=== PATIENT | female | born 1980 | race American Indian/Alaskan Native ===

== ENCOUNTER 2017-10-16 23:19 | Emergency (ER) | payer MEDICAID, SELFPAY ==
[2017-10-16 23:32] VITALS: BP 119/81; PULSE 86; RESP 16; TEMP 36.6; O2SAT 100
[2017-10-16 23:33] VITALS: BP 119/81; PULSE 83; RESP 15; TEMP 36.6; O2SAT 97; BMI 27.3
--- NOTE | 2017-10-16 23:52 | ED.NAVMDI ---
HPI - Nausea/Vomiting/Diarrhea General Chief complaint: Nausea/Vomiting/Diarrhea Stated complaint: THROWING UP AND WEAK Time Seen by Provider: 10/16/17 23:33 Source: patient and RN notes reviewed Mode of arrival: ambulatory Limitations: no limitations History of Present Illness HPI Narrative: Patient is a 37-year-old female presents with nausea and abdominal pain it has been ongoing for about 2 weeks. She has not had fever or bowel problems. She was seen evaluated at an urgent care. However today she feels like it is worse. She has not vomited but does still feel nauseated. She had a cholecystectomy about 6 months ago. She has not had issues until a couple weeks ago. MD complaint: nausea Onset (ago): week(s) Description of Diarrhea: none Location of pain: diffuse Related Data Home Medications Medication Instructions Recorded Confirmed codeine-guaifenesin 5 ml PO Q4HP PRN #0 02/05/17 diphenhydramine HCl [Benadryl 25 mg PO Q6HP PRN #0 07/23/17 Allergy] epinephrine #0 07/23/17 Previous Rx's Medication Instructions Recorded levothyroxine 0.112 mg PO QAM #30 tab 09/05/16 guaifenesin [Mucinex] 600 mg PO Q12HP PRN #14 ter 02/05/17 ondansetron [Zofran ODT] 4 mg SUBLINGUAL Q6HP PRN #10 odt 02/05/17 epinephrine [EpiPen 2-Ant] 0.3 mg SQ X1 PRN #1 pkg 07/23/17 ondansetron [Zofran ODT] 4 mg PO Q6H PRN #10 tab 10/17/17 Allergies Allergy/AdvReac Type Severity Reaction Status Date / Time shellfish derived Allergy Severe ALL Verified 10/16/17 23:32 SEAFOOD, POSS ANAPHYLXIS R/T EXPOSURE @ WORK iodine Allergy Mild CONTRAST - Verified 10/16/17 23:32 BODY GOES NUMB Review of Systems Review of Systems All systems reviewed & are unremarkable except as noted in HPI and below Constitutional Denies chills, Denies fever(s), Denies lethargy and Denies weakness Cardiovascular Denies chest pain, Denies irregular heart rhythm, Denies lightheadedness, Denies palpitations, Denies dyspnea, Denies dyspnea on exertion and Denies orthopnea Respiratory Denies cough, Denies dyspnea, Denies dyspnea on exertion and Denies wheezing Gastrointestinal Gastrointestinal: Reports system reviewed and no additional complaints, except as docu Genitourinary Denies hematuria, Denies flank pain, Denies urinary incontinence and Denies urinary urgency Integumentary/Breasts Denies pruritus, Denies erythema, Denies rash and Denies wounds Neurologic Denies weakness Endocrine Denies palpitations Allergic/Immunologic Denies wheezing [facility] Surgical History History of cholecystectomy (Acute) Status post delivery (02/02/13) Status post knee surgery Status post tubal ligation (06/17/16) Social History Smoking Status: Current every day smoker alcohol intake: never Exam Initial Vital Signs Initial Vital Signs: Vital Signs Temperature 97.9 F 10/16/17 23:32 Pulse Rate 86 10/16/17 23:32 Respiratory Rate 16 10/16/17 23:32 Blood Pressure 119/81 H 10/16/17 23:32 Pulse Oximetry 100 10/16/17 23:32 Const General: cooperative and acute distress (Mild pain) Nutritional Appearance: well nourished and thin Orientation: alert, awake, oriented x3 and not confused [facility] Head: normocephalic and atraumatic Ears: hearing grossly normal bilaterally Mouth: moist mucous membranes Teeth and gingiva: dentition normal Throat: tonsils normal and uvula midline Resp Effort & Inspection: normal respiratory effort, able to speak in complete sentences, no respiratory distress and no use of accessory muscles Auscultation: clear to auscultation bilaterally, no rales, no rhonchi and no wheezes Cardio Rate: regular rate Rhythm: regular rhythm Heart Sounds: no click, no gallops, no murmurs and no rubs Pulses: normal peripheral pulses GI Palpation: soft, No guarding, No pulsatile mass and tender (Epigastric and slight right upper quadrant no guarding or rebound) Skin General: no rashes or lesions noted, No jaundice and No petechiae Neuro General: alert, oriented x3, gait normal and no focal motor deficits Speech: speech normal Extrem General: full ROM, no clubbing, cyanosis or edema, no pedal edema and no calf tenderness Course Orders Ordered: ED Orders 10/16/17 23:45 Ictotest Urine Stat Urine Culture Stat Urine Microscopic Stat 10/16/17 23:59 XR abdomen min 2V Stat Complete Blood Count AUTO DIFF Stat Comprehensive Metabolic Panel Stat Lipase Stat 10/17/17 00:01 US abdomen limited Stat Sodium Chloride (Normal Saline 0.9%) 1,000 mls @ 1,000 mls/hr IV CONT KAMLA Last Infusion: 10/17/17 02:02 Dose: 1,000 mls/hr Admin: 10/17/17 00:18 Dose: 1,000 mls/hr Discontinued Medications Ondansetron HCl (Zofran) 4 mg IV NOW ONE Stop: 10/16/17 23:59 Last Admin: 10/17/17 00:18 Dose: 4 mg Pantoprazole Sodium (Protonix) 40 mg IV NOW ONE Stop: 10/16/17 23:59 Last Admin: 10/17/17 00:18 Dose: 40 mg Vital Signs - 8 hr 10/16/17 23:32 10/16/17 23:33 Temperature 97.9 F 97.9 F Pulse Rate 86 83 Respiratory Rate 16 15 Blood Pressure 119/81 H Blood Pressure [Right Arm] 119/81 H Pulse Oximetry 100 97 MDM - Nausea/Vomiting/Diarrhea Lab Data Result diagrams: 10/16/17 23:59 10/16/17 23:59 Lab Results 10/16/17 10/16/17 10/16/17 Range/Units 23:45 23:45 23:59 WBC 9.1 (4.5-11.0) X10^3/uL RBC 4.31 (4.0-5.2) X10^6/uL Hgb 13.4 (12.0-16.0) g/dL Hct 38.5 (36-46) % MCV 89.3 (80-100) fL MCH 31.2 (26-34) PG MCHC 34.9 (30-36) % RDW 13.2 (11.6-14.8) % Plt Count 307 (150-400) X10^3/uL Neut % (Auto) 60.5 (50-75) % Lymph % (Auto) 26.1 (25-40) % Sebastian % (Auto) 9.0 (3-14) % Eos % (Auto) 4.1 H (2-4) % Baso % (Auto) 0.3 (0-2) % Neut # (Auto) 5500 (5135-5396) /uL Sodium (137-145) mmol/L Potassium (3.4-5.1) mmol/L Chloride (98-107) mmol/L Carbon Dioxide (22-32) mmol/L BUN (7-17) mg/dL Creatinine (0.52-1.04) mg/dL Estimated GFR (>60) mL/min BUN/Creatinine Ratio (6-22) Glucose (70-100) mg/dL Calcium (8.4-10.2) mg/dL Total Bilirubin (0.2-1.3) mg/dL AST (14-36) IU/L ALT (9-52) IU/L Alkaline Phosphatase (38-126) U/L Total Protein (6.3-8.2) g/dL Albumin (3.5-5.0) g/dL Globulin (1.7-4.1) g/dL Albumin/Globulin Ratio (1.0-2.8) Lipase (23-300) U/L Urine Ictotest Negative (Negative) Urine RBC None seen (0-5/HPF) Urine WBC 1-5/hpf (0-5/HPF) Ur Squamous Epith Cells 1-5 /hpf Calcium Oxalate Crystal Moderate H (None) Urine Bacteria Many (>30) H (None) Ur Culture Indicated? Specimen cultured Micro UA Comment Not Reportable 10/16/17 Range/Units 23:59 WBC (4.5-11.0) X10^3/uL RBC (4.0-5.2) X10^6/uL Hgb (12.0-16.0) g/dL Hct (36-46) % MCV (80-100) fL MCH (26-34) PG MCHC (30-36) % RDW (11.6-14.8) % Plt Count (150-400) X10^3/uL Neut % (Auto) (50-75) % Lymph % (Auto) (25-40) % Sebastian % (Auto) (3-14) % Eos % (Auto) (2-4) % Baso % (Auto) (0-2) % Neut # (Auto) (0030-4940) /uL Sodium 141 (137-145) mmol/L Potassium 3.7 (3.4-5.1) mmol/L Chloride 103.0 (98-107) mmol/L Carbon Dioxide 26.0 (22-32) mmol/L BUN 9.0 (7-17) mg/dL Creatinine 0.60 (0.52-1.04) mg/dL Estimated GFR > 60.0 (>60) mL/min BUN/Creatinine Ratio 15.0 (6-22) Glucose 96 (70-100) mg/dL Calcium 8.4 (8.4-10.2) mg/dL Total Bilirubin 0.5 (0.2-1.3) mg/dL AST 20 (14-36) IU/L ALT 25 (9-52) IU/L Alkaline Phosphatase 80 (38-126) U/L Total Protein 7.2 (6.3-8.2) g/dL Albumin 4.0 (3.5-5.0) g/dL Globulin 3.2 (1.7-4.1) g/dL Albumin/Globulin Ratio 1.3 (1.0-2.8) Lipase 100 (23-300) U/L Urine Ictotest (Negative) Urine RBC (0-5/HPF) Urine WBC (0-5/HPF) Ur Squamous Epith Cells Calcium Oxalate Crystal (None) Urine Bacteria (None) Ur Culture Indicated? Micro UA Comment Imaging Data Abdominal x-ray: Attestation: I personally reviewed and interpreted this imaging study as follows: My impression: No air-fluid levels or sign of obstruction no free air. 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 There are clinical laboratory signs of biliary obstruction an MRI scan CP should be performed to further evaluate. [facility] Narrative Medical decision making narrative: Patient blood work is within normal limits. She is sleeping after Zofran. His. No further episodes of nausea or vomiting while in the ED. She denies any painful or frequent urination. At this time wait for urine culture and sensitivity to return. Discharge Plan Departure Patient Disposition: Home, Self-Care Clinical Impression: Nausea alone Discharge Date/Time: 10/17/17 02:00 Instructions: DI for Nausea -- Adult Activity Restrictions/Additional Instructions: *You have been diagnosed with nausea *What to do: At this time ultrasound x-ray and blood work are within normal limits, follow up with her primary care doctor for further investigation if symptoms persist *Take medications as directed -Zofran every 4-6 hours if needed for nausea or vomiting *Follow up with your primary care provider in 2-3 days *Return to ER if you should have any new, worsening or concerning symptoms Prescriptions: New ondansetron [Zofran ODT] 4 mg tablet,disintegrating 4 mg PO Q6H PRN (Reason: nausea and vomiting) Qty: 10 RF: 0 No Action levothyroxine 112 MCG tablet 0.112 mg PO QAM Qty: 30 RF: 5 codeine-guaifenesin 100 MG/10 MG liquid 5 ml PO Q4HP PRNQty: 0 RF: 0 guaifenesin [Mucinex] 600 MG tablet extended release 12hr 600 mg PO Q12HP PRNQty: 14 RF: 0 ondansetron [Zofran ODT] 4 MG tablet,disintegrating 4 mg Sublingual Q6HP PRNQty: 10 RF: 0 diphenhydramine HCl [Benadryl Allergy] 25 MG tablet 25 mg PO Q6HP PRNQty: 0 RF: 0 epinephrine 0.3 MG/0.3 ML auto-injector Qty: 0 RF: 0 epinephrine [EpiPen 2-Ant] 0.3 MG/0.3 ML auto-injector 0.3 mg SQ X1 PRNQty: 1 RF: 0
[2017-10-16 23:57] LABS: RBC Urine None Seen (0-5/HPF)
--- NOTE | 2017-10-16 23:59 | DI.RAD.S_ITS ---
PROCEDURE: XR ABDOMEN MIN 2V INDICATIONS: persistant vomiting TECHNIQUE: 2 views of the abdomen were acquired. COMPARISON: None. FINDINGS: Surgical changes and devices: None. Bowel: No pneumoperitoneum. The bowel gas pattern is normal. Soft tissues: No masses; visualized solid organ contours appear normal in size. No suspicious abdominal calcifications. Bones: No suspicious bony abnormalities. IMPRESSION: A large amount of stool. Dictated by: Rain Quintero M.D. on 10/17/2017 at 8:43 Approved by: Rain Quintero M.D. on 10/17/2017 at 8:44
--- NOTE | 2017-10-17 00:01 | DI.US.S_ITS ---
PROCEDURE: US ABDOMEN LIMITED INDICATIONS: RUQ pain TECHNIQUE: Real-time focused scanning was performed of the abdomen, with image documentation. COMPARISON: [facility], US, ABDOMEN LIMITED, 06/09/2016, 17:38. FINDINGS: Normal hepatic size and echotexture, gallbladder absent. Common bile duct normal in caliber. Source of right upper quadrant pain. IMPRESSION: Prior cholecystectomy, source of current pain is not found. Dictated by: Alonso Hodge M.D. on 10/17/2017 at 8:15 Approved by: Alonso Hodge M.D. on 10/17/2017 at 8:16
[2017-10-17 00:02] LABS: Ictotest Urine Negative (Negative)
[2017-10-17 00:16] LABS: Bacteria Urine Many (>30); Calcium Oxalate Crystals Urine Moderate; Squamous Epithelial Cell Urine 1-5 /HPF; WBC Urine 1-5/HPF (0-5/HPF)
[2017-10-17 00:17] LABS: Culture Indicated Urine Specimen Cultured
[2017-10-17] MEDS: PANTOPRAZOLE 40 MG VIAL IV (00:18)
[2017-10-17] MEDS: SODIUM CHLORIDE 0.9% 1,000 ML 1000 ML IV (00:18)
[2017-10-17] MEDS: ONDANSETRON 4 MG/2 ML INJ IV (00:18)
[2017-10-17 00:33] LABS: Add Manual Diff / Slide Review NO; Basophils Percent Auto 0.3 % (0-2); Eosinophils Percent Auto 4.1 % (2-4); Hematocrit 38.5 % (36-46); Hemoglobin 13.4 g/dL (12.0-16.0); Lymphocytes Percent Auto 26.1 % (25-40); Mean Corpuscular HGB Conc 34.9 % (30-36); Mean Corpuscular Hemoglobin 31.2 PG (26-34); Mean Corpuscular Volume 89.3 fL (80-100); Neutrophils Absolute Auto 5500 /uL (3000-5900); Neutrophils Percent Auto 60.5 % (50-75); Platelet Count 307 X10^3/uL (150-400); Red Blood Cell Count 4.31 X10^6/uL (4.0-5.2); Red Cell Distribution Width 13.2 % (11.6-14.8); White Blood Cell Count 9.1 X10^3/uL (4.5-11.0)
[2017-10-17 00:54] LABS: Alanine Aminotransferase 25 IU/L (9-52); Albumin Globulin Ratio 1.3 (1.0-2.8); Alkaline Phosphatase 80 U/L (38-126); Aspartate Aminotransferase 20 IU/L (14-36); Bilirubin Total 0.5 mg/dL (0.2-1.3); Calcium 8.4 mg/dL (8.4-10.2); Estimated Glomerular Filt Rate > 60.0 mL/min (>60); Globulin 3.2 g/dL (1.7-4.1); Glucose 96 mg/dL (70-100); HEMOLYSIS < 15 (0-50); Lipase 100 U/L (23-300); Potassium 3.7 mmol/L (3.4-5.1); Sodium 141 mmol/L (137-145); Total Protein 7.2 g/dL (6.3-8.2)
[2017-10-17 02:07] VITALS: BP 121/79; PULSE 76; RESP 16; TEMP 36.6; O2SAT 98
== END 2017-10-17 02:00 | disposition home or self-care (01) ==
PROVIDERS: Emergency Provider Emergency Medicine; Family Provider Family Medicine; PCP Family Medicine
DX: R11.0 Nausea (principal)
CPT/HCPCS: 74019; 76705; 80053; 81003; 81015; 81025; 83690; 85025; 87086; 87186; 96361; 96374; 96375; 99283; 99284; C9113; J2405

== ENCOUNTER 2017-11-26 00:06 | Emergency (ER) | payer MEDICAID, OTHER, SELFPAY ==
[2017-11-26] MEDS: SODIUM CHLORIDE 0.9% 1,000 ML 1000 ML IV (03:19)
[2017-11-26] MEDS: KETOROLAC 60 MG/2 ML VIAL 15 MG IV (03:21)
[2017-11-26] MEDS: ONDANSETRON 8 MG in SODIUM CHLORIDE 0.9% 50 ML 216 ML IV (03:23)
[2017-11-26 03:30] VITALS: BP 124/64; PULSE 74; RESP 16; O2SAT 100
[2017-11-26 03:41] LABS: Add Manual Diff / Slide Review NO; Basophils Percent Auto 1.1 % (0-2); Eosinophils Percent Auto 3.5 % (2-4); Hematocrit 39.7 % (36-46); Hemoglobin 13.8 g/dL (12.0-16.0); Lymphocytes Percent Auto 23.5 % (25-40); Mean Corpuscular HGB Conc 34.7 % (30-36); Mean Corpuscular Hemoglobin 31.1 PG (26-34); Mean Corpuscular Volume 89.7 fL (80-100); Monocytes Percent Auto 8.7 % (3-14); Neutrophils Absolute Auto 5500 /uL (3000-5900); Neutrophils Percent Auto 63.2 % (50-75); Platelet Count 354 X10^3/uL (150-400); Red Blood Cell Count 4.43 X10^6/uL (4.0-5.2); Red Cell Distribution Width 12.9 % (11.6-14.8); White Blood Cell Count 8.8 X10^3/uL (4.5-11.0)
[2017-11-26 03:51] LABS: Pregnancy Test Serum,Qual Negative (Negative)
[2017-11-26 03:55] LABS: Alanine Aminotransferase 22 IU/L (9-52); Albumin 4.2 g/dL (3.5-5.0); Albumin Globulin Ratio 1.2 (1.0-2.8); Alkaline Phosphatase 85 U/L (38-126); Aspartate Aminotransferase 18 IU/L (14-36); BUN Creatinine Ratio 11.7 (6-22); Bilirubin Total 0.6 mg/dL (0.2-1.3); Blood Urea Nitrogen 7 mg/dL (7-17); Calcium 8.7 mg/dL (8.4-10.2); Carbon Dioxide 25 mmol/L (22-32); Chloride 107 mmol/L (98-107); Estimated Glomerular Filt Rate > 60.0 mL/min (>60); Globulin 3.4 g/dL (1.7-4.1); Glucose 95 mg/dL (70-100); HEMOLYSIS < 15 (0-50); Lipase 68 U/L (23-300); Potassium 3.5 mmol/L (3.4-5.1); Sodium 144 mmol/L (137-145); Total Protein 7.6 g/dL (6.3-8.2)
[2017-11-26 04:05] LABS: Procalcitonin < 0.05 ng/mL (<0.5)
[2017-11-26 04:26] LABS: Lactate (Lactic Acid) 0.5 mmol/L (0.7-2.1)
[2017-11-26] MEDS: HYDROMORPHONE 0.5 MG INJ IV (04:40)
[2017-11-26 06:14] LABS: Appearance Urine UA SL CLOUDY; Bilirubin Urine UA NEGATIVE (NEGATIVE); Color Urine UA YELLOW; Glucose Urine UA NEGATIVE (Normal); Ketones Urine UA TRACE (NEGATIVE); Leukocyte Esterase Urine UA NEGATIVE (NEGATIVE); Nitrite Urine UA POSITIVE (Negative); Occult Blood Urine UA 3+ (Negative); Protein Urine UA 1+ (Negative); Specific Gravity Urine UA >=1.030 (1.000-1.035)
[2017-11-26 06:24] LABS: Bacteria Urine Many (>30); Culture Indicated Urine Specimen Cultured; RBC Urine 30-100/HPF (0-5/HPF); Squamous Epithelial Cell Urine 1-5 /HPF; WBC Urine 1-5/HPF (0-5/HPF)
[2017-12-04 09:18] LABS: C.trachomatis RNA NOT DETECTED
[2017-12-04 09:19] LABS: N.gonorrhoeae RNA NOT DETECTED
--- NOTE | 2017-12-12 10:10 | ED.FEMALEGU ---
HPI - Female Genitourinary General Chief complaint: Vaginal Bleeding Stated complaint: Cramping, vaginal bleeding History of Present Illness HPI Narrative: HPI 37-year-old female presents complaining of lower abdominal cramping vaginal bleeding last 3 days. Patient believes that she is not having her menses, unable to further characterize the frequency or duration of her menses. Patient unable to characterize number of pads required. Patient denies lightheadedness, chest pain, shortness breath, notes diffuse abdominal discomfort, denies fevers, chills, dysuria, urinary efficiency. Continues to pass flatus and stool baseline. M/S/F/SocHx notable for: please see HPI; remainder reviewed with patient and in chart. ROS: Negative constitutional, eye, cardiovascular, pulmonary, GI, , MSK, skin, neurologic, psychiatric, endocrine unless noted in the HPI. Exam Gen: Pleasant, non-toxic appearing, resting comfortably. HEENT: NC, AT, PEERL, EOMI. Resp: Clear to auscultation bilaterally, normal work of breathing, no accessory muscle usage. Card: Regular rate and rhythm with no murmurs, rubs, or gallops, extremities warm and well perfused. GI: mild diffuse tenderness to palpation, no rebound, no guarding. : Chaperoned pelvic exam with visually normal female external genitalia. Vaginal canal without lesions or excoriations. Scant dark red blood from a visually closed cervical os. No masses or tenderness on bimanual exam of the fundus or left or right adnexa.No CMT. MSK: No visible deformities, strength and tone without visually appreciable deficit. Skin: Normal color with no visible lesions. Neuro: AO x 3, no facial asymmetry, vision and hearing WNL. Psych: Mood and affect appropriate. Labs / Imaging: WBC 8.8, HB 13.0, sodium 144, potassium 3.5, lipase 68, total bilirubin 0.6, AST 18, ALT 22, ALP 85, lactic 0.5, Procalcitonin less than 0.05, negative . GC, wet [place] pending UA - nitrite positive, leukocyte esterase negative, 30-100 WBCs, many bacteria. MDM Previous chart, nursing note, labs, imaging, and vitals reviewed. A: 37-year-old female presents complaining of lower abdominal cramping vaginal bleeding last 3 days. DDx: dysfunctional uterine bleeding, menses, PID, UTI, pyelonephritis, ectopic Evaluation: patient with uterine bleeding of uncertain etiology, given the patient's difficulty in recounting her menstrual history there is a strong possibility that this is her regular menses given the duration in the minimal amount of bleeding. Patient is well compensated without anemia, UA is consistent with UTI, patient was prescribed ciprofloxacin, first dose given in the ED. Patient discharged with instructions to use NSAIDs for lower abdominal discomfort, and to follow up with her PCP and/or [employer] [facility] in 2 days for repeat evaluation. Impression: UTI, vaginal bleeding (please reference below for remainder of encounter information) Related Data Home Medications Medication Instructions Recorded Confirmed codeine-guaifenesin 5 ml PO Q4HP PRN #0 02/05/17 diphenhydramine HCl [Benadryl 25 mg PO Q6HP PRN #0 07/23/17 Allergy] epinephrine #0 07/23/17 Previous Rx's Medication Instructions Recorded levothyroxine 0.112 mg PO QAM #30 tab 09/05/16 guaifenesin [Mucinex] 600 mg PO Q12HP PRN #14 ter 02/05/17 ondansetron [Zofran ODT] 4 mg SUBLINGUAL Q6HP PRN #10 odt 02/05/17 epinephrine [EpiPen 2-Ant] 0.3 mg SQ X1 PRN #1 pkg 07/23/17 ondansetron [Zofran ODT] 4 mg PO Q6H PRN #10 tab 10/17/17 ciprofloxacin HCl 250 mg PO BID #6 tab 11/26/17 Allergies Allergy/AdvReac Type Severity Reaction Status Date / Time shellfish derived Allergy Severe ALL Verified 11/26/17 00:21 SEAFOOD, POSS ANAPHYLXIS R/T EXPOSURE @ WORK iodine Allergy Mild CONTRAST - Verified 11/26/17 00:21 BODY GOES NUMB PFSH Surgical History History of cholecystectomy (Acute) Status post delivery (02/02/13) Status post knee surgery Status post tubal ligation (06/17/16) Social History Smoking Status: Current every day smoker alcohol intake: never Exam Initial Vital Signs Initial Vital Signs: Vital Signs Pulse Rate 74 11/26/17 03:30 Respiratory Rate 16 11/26/17 03:30 Blood Pressure 124/64 H 11/26/17 03:30 Pulse Oximetry 100 11/26/17 03:30 Course Orders Ordered: Discontinued Medications Ciprofloxacin (Cipro) 500 mg PO NOW ONE Stop: 11/26/17 07:35 Last Admin: 11/26/17 07:43 Dose: Hydromorphone HCl (Dilaudid) 0.5 mg IV NOW ONE Stop: 11/26/17 04:30 Last Admin: 11/26/17 04:40 Dose: 0.5 mg Ondansetron HCl 8 mg/ Sodium (Chloride) 54 mls @ 216 mls/hr IV NOW ONE Stop: 11/26/17 02:30 Last Infusion: 11/26/17 03:45 Dose: 216 mls/hr Admin: 11/26/17 03:23 Dose: 216 mls/hr Sodium Chloride (Normal Saline 0.9%) 1,000 mls @ 1,000 mls/hr IV BOLUS ONE Stop: 11/26/17 03:28 Last Infusion: 11/26/17 04:27 Dose: 1,000 mls/hr Admin: 11/26/17 03:19 Dose: 1,000 mls/hr Ketorolac Tromethamine (Toradol) 15 mg IV NOW ONE Stop: 11/26/17 02:30 Last Admin: 11/26/17 03:21 Dose: 15 mg MDM - Female Genitourinary Lab Data Result diagrams: 11/26/17 03:30 11/26/17 03:30 Lab Results 11/26/17 11/26/17 11/26/17 Range/Units 02:10 03:30 03:30 WBC 8.8 (4.5-11.0) X10^3/uL RBC 4.43 (4.0-5.2) X10^6/uL Hgb 13.8 (12.0-16.0) g/dL Hct 39.7 (36-46) % MCV 89.7 (80-100) fL MCH 31.1 (26-34) PG MCHC 34.7 (30-36) % RDW 12.9 (11.6-14.8) % Plt Count 354 (150-400) X10^3/uL Neut % (Auto) 63.2 (50-75) % Lymph % (Auto) 23.5 L (25-40) % Phelps % (Auto) 8.7 (3-14) % Eos % (Auto) 3.5 (2-4) % Baso % (Auto) 1.1 (0-2) % Neut # (Auto) 5500 (6786-9673) /uL Sodium (137-145) mmol/L Potassium (3.4-5.1) mmol/L Chloride (98-107) mmol/L Carbon Dioxide (22-32) mmol/L BUN (7-17) mg/dL Creatinine (0.52-1.04) mg/dL Estimated GFR (>60) mL/min BUN/Creatinine Ratio (6-22) Glucose (70-100) mg/dL Lactate (0.7-2.1) mmol/L Calcium (8.4-10.2) mg/dL Total Bilirubin (0.2-1.3) mg/dL AST (14-36) IU/L ALT (9-52) IU/L Alkaline Phosphatase (38-126) U/L Total Protein (6.3-8.2) g/dL Albumin (3.5-5.0) g/dL Globulin (1.7-4.1) g/dL Albumin/Globulin Ratio (1.0-2.8) Lipase (23-300) U/L Procalcitonin < 0.05 (<0.5) ng/mL Serum , Qual Negative (Negative) Urine Color Urine Appearance Urine pH (4.5-8.0) Ur Specific [place] (1.000-1.035) Urine Protein (Negative) Urine Glucose (UA) (Normal) g/dL Urine Ketones (NEGATIVE) Urine Occult Blood (Negative) Urine Nitrate (Negative) Urine Bilirubin (NEGATIVE) Urine Urobilinogen (0.2) E.U./dL Ur Leukocyte Esterase (NEGATIVE) Urine RBC (0-5/HPF) Urine WBC (0-5/HPF) Ur Squamous Epith Cells Urine Bacteria (None) Ur Culture Indicated? Micro UA Comment C.trachomatis RNA (TMA) Not detected N.gonorrhoeae RNA (TMA) Not detected 11/26/17 11/26/17 11/26/17 Range/Units 03:30 04:05 06:05 WBC (4.5-11.0) X10^3/uL RBC (4.0-5.2) X10^6/uL Hgb (12.0-16.0) g/dL Hct (36-46) % MCV (80-100) fL MCH (26-34) PG MCHC (30-36) % RDW (11.6-14.8) % Plt Count (150-400) X10^3/uL Neut % (Auto) (50-75) % Lymph % (Auto) (25-40) % [place] % (Auto) (3-14) % Eos % (Auto) (2-4) % Baso % (Auto) (0-2) % Neut # (Auto) (7771-0151) /uL Sodium 144 (137-145) mmol/L Potassium 3.5 (3.4-5.1) mmol/L Chloride 107 (98-107) mmol/L Carbon Dioxide 25 (22-32) mmol/L BUN 7 (7-17) mg/dL Creatinine 0.60 (0.52-1.04) mg/dL Estimated GFR > 60.0 (>60) mL/min BUN/Creatinine Ratio 11.7 (6-22) Glucose 95 (70-100) mg/dL Lactate 0.5 L (0.7-2.1) mmol/L Calcium 8.7 (8.4-10.2) mg/dL Total Bilirubin 0.6 (0.2-1.3) mg/dL AST 18 (14-36) IU/L ALT 22 (9-52) IU/L Alkaline Phosphatase 85 (38-126) U/L Total Protein 7.6 (6.3-8.2) g/dL Albumin 4.2 (3.5-5.0) g/dL Globulin 3.4 (1.7-4.1) g/dL Albumin/Globulin Ratio 1.2 (1.0-2.8) Lipase 68 (23-300) U/L Procalcitonin (<0.5) ng/mL Serum , Qual (Negative) Urine Color Yellow Urine Appearance Sl cloudy Urine pH 5.0 (4.5-8.0) Ur Specific [place] >=1.030 H (1.000-1.035) Urine Protein 1+ H (Negative) Urine Glucose (UA) Negative (Normal) g/dL Urine Ketones Trace H (NEGATIVE) Urine Occult Blood 3+ H (Negative) Urine Nitrate Positive H (Negative) Urine Bilirubin Negative (NEGATIVE) Urine Urobilinogen 1.0 (0.2) E.U./dL Ur Leukocyte Esterase Negative (NEGATIVE) Urine RBC 30-100/hpf H (0-5/HPF) Urine WBC 1-5/hpf (0-5/HPF) Ur Squamous Epith Cells 1-5 /hpf Urine Bacteria Many (>30) H (None) Ur Culture Indicated? Specimen cultured Micro UA Comment Not Reportable C.trachomatis RNA (TMA) N.gonorrhoeae RNA (TMA) Discharge Plan Departure Patient Disposition: Home, Self-Care Clinical Impression: UTI (urinary tract infection), Abnormal vaginal bleeding Discharge Date/Time: 11/26/17 07:33 Interventions: ED Discharge Assessment Last Done: 11/26/17 07:33 Activity Restrictions/Additional Instructions: You were in seen in the [facility] Emergency Department for evaluation of abdominal pain, cramping, and vaginal bleeding. The cause of your cramping and bleeding is uncertain,, please follow-up with your [employer] [facility] in 1-2 days for repeat evaluation further care. You were also found to have a urinary tract infection have been prescribed ciprofloxacin. You may take ibuprofen and acetaminophen as directed below for treatment of pain. Please read and follow all of the instructions below. Please follow up with your primary care physician and 1-2 days for repeat evaluation further care. If you have any new symptoms or if you are at all concerned about your health please return immediately to the emergency department. If you do not have a primary care physician, please contact [facility], [facility] at [phone], [facility] at [phone], or [facility] at [phone] to arrange follow up care. If you have health insurance, please also contact your insurer for a list of accepting providers under your policy, you may contact these providers for further health care. Your care today was limited to identifying and treating emergent medical problems only. Many people have subtle differences in their test results that require follow up with their outpatient physician(s) to correctly determine if this represents a normal variation or concerning abnormality with respect to your specific health. The care given to you today was limited to identifying and treating emergent medical problems - you need to request a copy of all of your medical records from today's visit and follow up with your outpatient physician(s) to review both today's visit and your overall health. Abdominal Pain The exact cause of your abdominal pain is not certain. Based upon the testing today you are felt to be at low risk for discharge. There are no current signs of a life threatening illness or injury. Your condition does not seem serious now; however, sometimes the signs of a serious problem may take more time to appear. For this reason, it is important for you to watch for any new symptoms, problems, or worsening of your condition. Over the next few days, the abdominal pain may come and go, or be continuous. Other common symptoms can include nausea and vomiting. Sometimes it can be difficult to tell if you feel nauseous, you may just feel bad and not associate that feeling with nausea. Constipation, diarrhea, and a fever may go along with the pain. The pain may continue even if treated correctly over the following days. Depending on how things go, sometimes the cause can become clear and may require further or different treatment. Additional evaluations, medications, or tests may be needed. If your symptoms do not worsen but you are still having pain after 12-24 hours, please call your primary care physician to arrange for further evaluation. Return to the emergency department if any of the following occur: * Pain gets worse or moves to the right lower abdomen * New or worsening vomiting or diarrhea * Swelling of the abdomen * Unable to pass gas or stool for more than 8 hours * Fever of 100.4?F (38?C) or higher, or as directed by your healthcare provider. * Blood in vomit or bowel movements (dark red or black color) * If you have yellow skin or eyes or if you have dark brown urine. * Weakness, dizziness * Chest, arm, back, neck or jaw pain * Unexpected vaginal bleeding or missed period * Trouble breathing * Confusion * Fainting or loss of consciousness * Rapid heart rate * Seizure * If you are light headed upon standing or passing out. * If you are otherwise concerned about your health. Home Care * Do not force yourself to eat, especially if having cramps, vomiting, or diarrhea. * Water is important so you do not get dehydrated. Soup may also be good. Sports drinks may also help, especially if they are not too acidic. Make sure you don't drink sugary drinks as this can make things worse. Take liquids in small amounts. * Caffeine sometimes makes the pain and cramping worse. * Avoid dairy products if you have vomiting or diarrhea. * Don't eat large amounts at a time. Wait a few minutes between bites. * Eat a diet low in fiber (called a low-residue diet). Foods allowed include refined breads, white rice, fruit and vegetable juices without pulp, tender meats. These foods will pass more easily through the intestine. * Avoid whole-grain foods, whole fruits and vegetables, meats, seeds and nuts, fried or fatty foods, dairy, alcohol and spicy foods until your symptoms go away. You make take over the counter Acetaminophen (Tylenol) and Ibuprofen (Motrin or Aleve) as directed below for relief of pain. * Take 600 mg of ibuprofen (three 200 mg tablets) with a glass of water every 6-8 hours as needed for pain or fever. Do not take if you have ulcers, GI bleeding, are , or are allergic to ibuprofen. * Take 1,000 mg of acetaminophen (two 500 mg tablets) with a glass of water every 6-8 hours as needed for pain. Do not take if you are allergic to acetaminophen. If you have liver disease, please reduce your dose to a maximum of 2,000 mg per day. * You can take these medications at the same time or on separate schedules. * Do not take for more than 10 days. * Do not take with alcohol or other acetaminophen containing medications. * This medication may cause a mildly upset stomach, if so take it with a small snack. Stop taking it if you have persistent abdominal pain, heartburn, or any stomach pain. Do not take this medication if you have known ulcers. * Please read the warnings at the end of this document regarding these medications. IBUPROFEN WARNING: This drug may infrequently cause serious (rarely fatal) bleeding from the stomach or intestines. Also, related drugs rarely have caused blood clots to form, resulting in heart attacks and strokes. This medication might also rarely cause similar problems. Talk to your doctor or pharmacist about the benefits and risks of treatment, as well as other possible medication choices. If you notice any of the following rare but very serious side effects, stop taking ibuprofen and seek immediate medical attention: black stools, persistent stomach/abdominal pain, vomit that looks like coffee grounds, chest pain, weakness on one side of the body, sudden vision changes, slurred speech. IBUPROFEN SIDE EFFECTS: Upset stomach, nausea, vomiting, heartburn, headache, diarrhea, constipation, drowsiness, and dizziness may occur. If any of these effects persist or worsen, notify your doctor or pharmacist promptly. If your doctor has directed you to use this medication, remember that he or she has judged that the benefit to you is greater than the risk of side effects. Many people using this medication do not have serious side effects. Tell your doctor immediately if any of these serious side effects occur: stomach pain, swelling of the hands or feet, sudden or unexplained weight gain, ringing in the ears (tinnitus). Tell your doctor immediately if any of these unlikely but serious side effects occur: vision changes, rapid or pounding heartbeat, easy bruising or bleeding, difficult/painful swallowing. Tell your doctor immediately if any of these highly unlikely but very serious side effects occur: change in amount of urine, severe headache, very stiff neck, mental/mood changes, persistent sore throat or fever. This drug may rarely cause serious (possibly fatal) liver disease. If you notice any of the following highly unlikely but very serious side effects, stop taking ibuprofen and consult your doctor or pharmacist immediately: yellowing eyes and skin, dark urine, unusual/extreme tiredness. An allergic reaction to this drug is unlikely, but seek immediate medical attention if it occurs. Symptoms of an allergic reaction include: rash, itching/swelling (especially of the face/tongue/throat), severe dizziness, trouble breathing. This is not a complete list of possible side effects. ACETAMINOPHEN SIDE EFFECTS: This drug usually has no side effects. If you do not have liver problems, the maximum dose of acetaminophen for adults is 4 grams per day (4000 milligrams). Taking more than the maximum daily amount may cause serious (possibly fatal) liver damage. Get medical help right away if you have any of the following symptoms of liver damage: persistent nausea/vomiting, extreme tiredness, stomach/abdominal pain, yellowing eyes/skin, dark urine. If you have liver problems, consult your doctor or pharmacist for a safe dosage of this medication. A very serious allergic reaction to this drug is rare. However, get medical help right away if you notice any symptoms of a serious allergic reaction, including: rash, itching/swelling (especially of the face/tongue/throat), severe dizziness, trouble breathing. This is not a complete list of possible side effects. If you notice other effects not listed above, contact your doctor or pharmacist. DRUG INTERACTIONS: Your healthcare professionals (e.g., doctor or pharmacist) may already be aware of any possible drug interactions and may be monitoring you for it. Do not start, stop or change the dosage of any medicine before checking with them first. This drug should not be used with the following medications because very serious interactions may occur: cidofovir, ketorolac. If you are currently using any of these medications listed above, tell your doctor or pharmacist before starting ibuprofen. Before using this medication, tell your doctor or pharmacist of all prescription and nonprescription/herbal products you may use, especially of: anti-platelet drugs (e.g., cilostazol, clopidogrel), oral bisphosphonates (e.g., alendronate), other medications for arthritis (e.g., aspirin, methotrexate), blood thinners (e.g., enoxaparin, heparin, warfarin), corticosteroids (e.g., prednisone), cyclosporine, desmopressin, high blood pressure drugs (including DALTON inhibitors such as captopril, angiotensin II receptor antagonists such as losartan, and beta-blockers such as metoprolol), lithium, pemetrexed, water pills (diuretics such as furosemide, hydrochlorothiazide, triamterene). Check all prescription and nonprescription medicine labels carefully for other pain/fever drugs (NSAIDs such as aspirin, celecoxib, naproxen). These drugs are similar to ibuprofen, so taking one of these drugs while also taking ibuprofen may increase your risk of side effects. Consult your doctor or pharmacist for more details. However, if your doctor has prescribed low doses of aspirin to prevent heart attack or stroke (usually at dosages of 81-325 milligrams a day), you should continue to take the aspirin. Daily use of ibuprofen may decrease aspirin's ability to prevent heart attack/stroke. Talk to your doctor about using a different medication (e.g., acetaminophen) to treat pain/fever. If you must take ibuprofen, talk to your doctor about possibly taking immediate-release aspirin (not enteric-coated) while also taking the ibuprofen dose apart from your aspirin dose. Do not increase your daily dose of aspirin or change the way you take aspirin/other medications without your doctor's approval. This document does not contain all possible interactions. Therefore, before using this product, tell your doctor or pharmacist of all the products you use. Keep a list of all your medications with you, and share the list with your doctor and pharmacist. You have an infection of your urinary tract. * Take 250 mg of Ciprofloxacin every 12 hours for the next 3 days. * Stay well hydrated. Please return to the emergency department if you develop any of the following: * Fevers or chills * Flank pain * Back pain * Blood in your urine * If you are otherwise concerned about your health If after 3 days of you still have pain on urination or a sensation that you need to urinate frequently please follow up with your primary care physician. Ciprofloxacin (Brand Name: Cipro) This medication is used to treat a variety of bacterial infections. Ciprofloxacin belongs to a class of drugs called quinolone antibiotics. It works by stopping the growth of bacteria. This antibiotic treats only bacterial infections. It will not work for virus infections (such as common cold, flu). Ciprofloxacin - How To Use: * This medication may be taken with or without food as directed by your doctor, usually twice a day in the morning and evening. * If you are using a liquid form of this drug, shake the container well for 15 seconds before pouring each dose. Carefully measure the dose using a special measuring device/spoon. Do not use a household spoon because you may not get the correct dose. Do not chew the contents of the suspension. * Take this medication at least 2 hours before or 6 hours after taking other products that may bind to it, decreasing its effectiveness. Ask your pharmacist about the other products you take. Some examples include: quinapril, sevelamer, sucralfate, vitamins/minerals (including iron and zinc supplements), and products containing magnesium, aluminum, or calcium (such as antacids, didanosine solution, calcium supplements). * Calcium-rich foods, including dairy products (such as milk, yogurt) or calcium-enriched juice, can also decrease the effect of this medication. Take this medication at least 2 hours before or 6 hours after eating calcium-rich foods, unless you are eating these foods as part of a larger meal that contains other ([id number]) foods. These other foods decrease the calcium binding effect. * Ask your doctor or pharmacist about safely using nutritional supplements/replacements with this medication. * Antibiotics work best when the amount of medicine in your body is kept at a constant level. Therefore, take this drug at evenly spaced intervals. * Continue to take this medication until the full prescribed amount is finished, even if symptoms disappear after a few days. Stopping the medication too early may result in a return of the infection. * Please read all the package instructions with this medication. Ciprofloxacin - Side Effects: * Nausea, diarrhea, dizziness, lightheadedness, headache, or trouble sleeping may occur. If any of these effects persist or worsen, tell your doctor or pharmacist promptly. * Tell your doctor right away if you have any serious side effects, including: skin that sunburns more easily (sun sensitivity), unusual bruising/bleeding, signs of a new infection (such as new/persistent fever, persistent sore throat), unusual change in the amount of urine, change in color of urine (red/pink color), signs of liver problems (such as unusual tiredness, stomach/abdominal pain, persistent nausea/vomiting, yellowing eyes/skin, dark urine). * Get medical help right away if you have any very serious side effects, including: severe/persistent headache, vision changes, shaking (tremors), seizures, severe dizziness, fainting, fast/irregular heartbeat, mental/mood changes (such as anxiety, confusion, hallucinations, depression, rare thoughts of suicide). * Rarely, this medication may cause serious, possibly permanent, nerve problems (peripheral neuropathy). Stop taking ciprofloxacin and tell your doctor right away if you have any of the following symptoms: pain/numbness/burning/tingling/weakness in your arms, hands, legs, or feet, changes in how you sense touch/pain/temperature/vibration/body position. * This medication may rarely cause a severe intestinal condition (Clostridium difficile-associated diarrhea) due to a type of resistant bacteria. This condition may occur during treatment or weeks to months after treatment has stopped. Tell your doctor right away if you develop: persistent diarrhea, abdominal or stomach pain/cramping, blood/mucus in your stool. * Do not use anti-diarrhea products or narcotic pain medications if you have any of these symptoms because these products may make them worse. * Use of this medication for prolonged or repeated periods may result in oral thrush or a new yeast infection. Contact your doctor if you notice white patches in your mouth, a change in vaginal discharge, or other new symptoms. * A very serious allergic reaction to this drug is rare. However, get medical help right away if you notice any of the following symptoms of a serious allergic reaction: rash, itching/swelling (especially of the face/tongue/throat), severe dizziness, trouble breathing. * This is not a complete list of possible side effects. If you notice other effects not listed above, contact your doctor or pharmacist. Ciprofloxacin - Precautions: * This medication is associated with an increased risk of tendon rupture. Tendons are the areas that connect your muscles to your joints, an example would be the Achilles tendon at the back of your ankle. You will have increased risk of tendon rupture if you are older than 60 years, take steroids (corticosteroids) or are kidney, heart, or lung transplant recipient. While there is a risk of tendon rupture, the overall risk versus benefits of this medication were considered at the time of this drug being prescribed. Call your healthcare provider right away at the first signs or symptoms of pain, swelling or inflammation in a tendon area. These could be symptoms of tendinitis or tendon rupture. Stop taking your ciprofloxacin until a healthcare provider has determined that you do not have tendinitis or a tendon rupture. Signs or symptoms of tendon rupture include: a snap or pop in a tendon area, bruising right after an injury in a tendon area, inability to move the affected area or bear weight. * Before taking ciprofloxacin, tell your doctor or pharmacist if you are allergic to it; or to other quinolone antibiotics such as norfloxacin, gemifloxacin, levofloxacin, moxifloxacin, or ofloxacin; or if you have any other allergies. This product may contain inactive ingredients, which can cause allergic reactions or other problems. Talk to your pharmacist for more details. * This medication may rarely cause tendon damage (such as tendonitis, tendon rupture) during or after treatment. Your risk for tendon problems is greater if you are over 60 years of age, if you are taking corticosteroids (such as prednisone), or if you have a kidney, heart, or lung transplant. Stop exercising, rest, and get medical help right away if you develop joint/muscle/tendon pain or swelling. * Ciprofloxacin should not be used by patients with myasthenia gravis. It may cause the condition to become worse. Get medical help right away if you develop muscle weakness or trouble breathing. * Before using this medication, tell your doctor or pharmacist your medical history, especially of: diabetes, heart problems (such as recent heart attack), joint/tendon problems (such as tendonitis, bursitis), kidney disease, liver disease, myasthenia gravis, nerve problems (such as peripheral neuropathy), seizures, conditions that increase your risk of seizures (such as brain/head injury, brain tumors, cerebral atherosclerosis). * Ciprofloxacin may cause a condition that affects the heart rhythm (QT prolongation). QT prolongation can rarely cause serious (rarely fatal) fast/irregular heartbeat and other symptoms (such as severe dizziness, fainting) that need medical attention right away. * The risk of QT prolongation may be increased if you have certain medical conditions or are taking other drugs that may cause QT prolongation. Before using ciprofloxacin, tell your doctor or pharmacist of all the drugs you take and if you have any of the following conditions: certain heart problems (heart failure, slow heartbeat, QT prolongation in the EKG), family history of certain heart problems (QT prolongation in the EKG, sudden cardiac ). * Low levels of potassium or magnesium in the blood may also increase your risk of QT prolongation. This risk may increase if you use certain drugs (such as diuretics/water pills) or if you have conditions such as severe sweating, diarrhea, or vomiting. Talk to your doctor about using ciprofloxacin safely. * This medication may rarely cause serious changes in blood sugar levels, especially if you have diabetes. Watch for symptoms of high blood sugar including increased thirst and urination. Ciprofloxacin may increase the blood sugar-lowering effects of the medication glyburide. Also watch for symptoms of low blood sugar such as sudden sweating, shaking, fast heartbeat, hunger, blurred vision, dizziness, or tingling hands/feet. Check your blood sugar regularly as directed by your doctor and report any changes. If you experience symptoms of low blood sugar, you may raise your blood sugar by using glucose tablets/gel or eating a quick source of sugar such as table sugar, honey, or candy, or drinking fruit juice or non-diet soda. Tell your doctor right away about the reaction and the use of this product. To help prevent low blood sugar, eat meals on a regular schedule, and do not skip meals. Your doctor may need to switch you to another antibiotic or adjust your diabetes medications if any reaction occurs. * This drug may make you dizzy. Do not drive, use machinery, or do any activity that requires alertness until you are sure you can perform such activities safely. Limit alcoholic beverages. * This medication may make you more sensitive to the sun. Avoid prolonged sun exposure, tanning booths, and sunlamps. Use a sunscreen and wear protective clothing when outdoors. Other medications (such as tretinoin-mequinol) may increase your sun sensitivity. Ask your doctor or pharmacist for more details. * Ciprofloxacin may cause live bacterial vaccines (such as typhoid vaccine) not to work as well. Therefore, do not have any immunizations/vaccinations while using this medication without the consent of your doctor. * Before having surgery, tell your doctor or dentist about all the products you use (including prescription drugs, nonprescription drugs, and herbal products). * This medication contains sucrose and is therefore not recommended if you have a rare hereditary metabolic condition (such as fructose intolerance, sucrase-isomaltase deficiency, glucose-galactose malabsorption). * Children may be more sensitive to the side effects of this drug, especially joint/tendon problems. * Older adults may be more sensitive to the side effects of this drug, especially tendon problems (especially if they are also taking corticosteroids such as prednisone or hydrocortisone) and QT prolongation (see above). * During , this medication should be used only when clearly needed. Discuss the risks and benefits with your doctor. * This medication passes into breast milk. Consult your doctor before breast-feeding. Ciprofloxacin - Drug Interactions: * Drug interactions may change how your medications work or increase your risk for serious side effects. This document does not contain all possible drug interactions. Keep a list of all the products you use (including prescription/nonprescription drugs and herbal products) and share it with your doctor and pharmacist. Do not start, stop, or change the dosage of any medicines without your doctor's approval. * Some products that may interact with this drug include: blood thinners (such as acenocoumarol, warfarin), strontium. * Many drugs besides ciprofloxacin may affect the heart rhythm (QT prolongation), including amiodarone, dofetilide, quinidine, procainamide, sotalol, among others. * This medication can slow down the removal of other medications from your body, which may affect how they work. Examples of affected drugs include duloxetine, pirfenidone, tasimelteon, tizanidine, among others. * Avoid drinking large amounts of beverages containing caffeine (coffee, tea, jhon), eating large amounts of chocolate, or taking [id number] products that contain caffeine. This drug may increase and/or prolong the effects of caffeine. * Although most antibiotics are unlikely to affect hormonal control such as pills, patch, or ring, a few antibiotics (such as rifampin, rifabutin) can decrease their effectiveness. This could result in . If you use hormonal control, ask your doctor or pharmacist for more details. Prescriptions: New ciprofloxacin HCl 250 mg tablet 250 mg PO BID Qty: 6 RF: 0 No Action levothyroxine 112 MCG tablet 0.112 mg PO QAM Qty: 30 RF: 5 codeine-guaifenesin 100 MG/10 MG liquid 5 ml PO Q4HP PRNQty: 0 RF: 0 guaifenesin [Mucinex] 600 MG tablet extended release 12hr 600 mg PO Q12HP PRNQty: 14 RF: 0 ondansetron [Zofran ODT] 4 MG tablet,disintegrating 4 mg Sublingual Q6HP PRNQty: 10 RF: 0 diphenhydramine HCl [Benadryl Allergy] 25 MG tablet 25 mg PO Q6HP PRNQty: 0 RF: 0 epinephrine 0.3 MG/0.3 ML auto-injector Qty: 0 RF: 0 epinephrine [EpiPen 2-Ant] 0.3 MG/0.3 ML auto-injector 0.3 mg SQ X1 PRNQty: 1 RF: 0 ondansetron [Zofran ODT] 4 mg tablet,disintegrating 4 mg PO Q6H PRN (Reason: nausea and vomiting) Qty: 10 RF: 0
== END 2017-11-26 07:33 | disposition home or self-care (01) ==
PROVIDERS: Emergency Provider Emergency Medicine
DX: N39.0 Urinary tract infection, site not specified (principal); N93.9 Abnormal uterine and vaginal bleeding, unspecified
CPT/HCPCS: 36415; 36591; 80053; 81001; 83605; 83690; 84145; 84703; 85025; 87077; 87081; 87086; 87186; 87491; 87591; 96361; 96374; 96375; 99283; 99284; J1170; J1885; J2405

== ENCOUNTER 2018-01-13 12:33 | Emergency (ER) | payer MEDICAID, OTHER, SELFPAY ==
[2018-01-13] VITALS (7 sets, daily range): BP systolic 106–136; BP diastolic 61–69; PULSE 61–89; RESP 15–24; TEMP 36.2; O2SAT 96–100
--- NOTE | 2018-01-13 12:43 | DI.RAD.S_ITS ---
PROCEDURE: XR CHEST 1V INDICATIONS: chest pain TECHNIQUE: One view of the chest was acquired. COMPARISON: , , CHEST 1 VIEW, 06/04/2017, 20:20. , , CHEST 2 VIEW, 02/05/2017, 22:52. , CR, CHEST 1 VIEW, 12/25/2015, 12:49. , , CHEST 2 VIEW, 02/21/2014, 12:49. , , CHEST 2 VIEW, 02/19/2014, 16:40. [facility], , XR CHEST 1 VIEW, 01/12/2018, 1:27. FINDINGS: Surgical changes and devices: None. Lungs and pleura: No pleural effusions or pneumothorax. Lungs are clear. Mediastinum: Mediastinal contours appear normal. Heart size is normal. Bones and chest wall: No suspicious bony lesions. Overlying soft tissues appear unremarkable. IMPRESSION: No acute cardiopulmonary disease process. Dictated by: Effie Fournier MD, PhD on 01/13/2018 at 13:35 Approved by: Effie Fournier MD, PhD on 01/13/2018 at 13:37
--- NOTE | 2018-01-13 13:25 | ED.CHESTPAIN ---
HPI - Chest Pain <Nancy Odom PA-C - Last Filed: 01/13/18 21:08> General Chief Complaint: Chest Pain Stated Complaint: CHEST PAIN Time Seen by Provider: 01/13/18 12:43 Source: patient Mode of arrival: ambulatory Limitations: no limitations History of Present Illness HPI narrative: This 37-year-old female comes in to 2 week history of today due to 3 week history of mid sternal CP. She states that usually this stays in the middle of her chest, occasionally can radiate a little bit to the left side or back. She states that at onset, this was less severe and mostly able to ignore it, but has progressively worsened, worse over the last week. She states that it is associated with dyspnea. She has had cough, sinus pressure and ear congestion. She denies wheeze. She states that she has had intermittent swelling in her extremities, no new pain or rash. She states that pain and dyspnea get worse with activity, breathing or talking, better lying flat. She denies any abdominal pain or vomiting currently, but states that she did have diarrheal illness with nausea and vomiting along with sweats a week ago. That completely resolved. She traveled to [place] 2 weeks ago by car, and states that she was able to tolerate symptoms then, did not get worse while traveling. No other recent travel. No known exposures. She has no history of cardiopulmonary disease but did start smoking just in the last few months. She tried 1 dose of ibuprofen and Prilosec at home last night but has not tried these regularly Related Data Home Medications Medication Instructions Recorded Confirmed epinephrine [EpiPen 2-Ant] 0.3 mg SQ X1 PRN 01/13/18 01/13/18 ibuprofen 1 tab PO Q6H PRN 01/13/18 01/13/18 levothyroxine 1 tab PO DAILY 01/13/18 01/13/18 omeprazole 1 cap PO BID 01/13/18 01/13/18 Previous Rx's Medication Instructions Recorded albuterol sulfate 2 puff INHALATION Q4-6H PRN #6.7 01/13/18 gram amoxicillin-pot clavulanate 1 tab PO BID #20 tab 01/13/18 [Augmentin] meloxicam [Mobic] 15 mg PO DAILY #20 tab 01/13/18 Allergies Allergy/AdvReac Type Severity Reaction Status Date / Time shellfish derived Allergy Severe ALL Verified 11/26/17 00:21 SEAFOOD, POSS ANAPHYLXIS R/T EXPOSURE @ WORK iodine Allergy Mild CONTRAST - Verified 11/26/17 00:21 BODY GOES NUMB Review of Systems <Nancy Odom PA-C - Last Filed: 01/13/18 21:08> Review of Systems All systems reviewed & are unremarkable except as noted in HPI and below Exam <Nancy Odom PA-C - Last Filed: 01/13/18 21:08> Narrative Exam Narrative: GENERAL APPEARANCE: Patient resting comfortably, in no distress. HEAD: Generalized sinus tenderness, a bit more in the left maxilla EYES: PERRL, EOMI. EARS: Left ear canal is somewhat edematous, right is normal, TMs are dull otherwise normal ORAL CAVITY: Normal oropharynx. THROAT: Trace erythema, +PND, no exudate NECK/THYROID: Neck supple, full range of motion, shoddy anterior cervical lymphadenopathy. LUNGS: Clear to auscultation bilaterally, no cough on exam. CHEST: Moderate mid sternal TTP HEART: RRR without murmur, nl S1, S2, no S3 or S4. ABDOMEN: Soft, NT, ND, +bowel sounds x4 quadrants EXTREMITIES: No cyanosis or edema, no calf tenderness, pedal pulses intact DERMATOLOGIC: No exanthem Initial Vital Signs Initial Vital Signs: Vital Signs Temperature 97.2 F L 01/13/18 12:39 Pulse Rate 72 01/13/18 12:39 Respiratory Rate 16 01/13/18 12:39 Blood Pressure 115/61 01/13/18 12:39 Pulse Oximetry 98 01/13/18 12:39 <Jamie Coates DO - Last Filed: 01/14/18 07:13> Initial Vital Signs Initial Vital Signs: Vital Signs Temperature 97.2 F L 01/13/18 12:39 Pulse Rate 72 01/13/18 12:39 Respiratory Rate 16 01/13/18 12:39 Blood Pressure 115/61 01/13/18 12:39 Pulse Oximetry 98 01/13/18 12:39 Course <CRYSTAL Mcmahon Last Filed: 01/13/18 21:08> Additional Information: Patient reported feeling significantly improved following nebulizer treatments, actually fell asleep following these and Toradol. Her significant other reported that she had had difficulty sleeping due to the pain and discomfort. On awakening, she states that she feels substantially improved in terms of her pain and breathing. Discussed that this appears to have started in the setting of sinus infection, also likely reactive airways exacerbated by her recent uptake of smoking as well as our poor air quality locally. Suspect, pleurisy as well. She agree to return if any acutely worsening symptoms again Orders Ordered: Discontinued Medications Albuterol (Ventolin) 2.5 mg INH NOW ONE Stop: 01/13/18 13:42 Last Admin: 01/13/18 13:54 Dose: 2.5 mg Albuterol (Ventolin) 2.5 mg INH NOW ONE Stop: 01/13/18 14:20 Last Admin: 01/13/18 14:31 Dose: 2.5 mg Ketorolac Tromethamine (Toradol) 30 mg IV NOW ONE Stop: 01/13/18 14:20 Last Admin: 01/13/18 14:45 Dose: 30 mg Pantoprazole Sodium (Protonix) 40 mg IV NOW ONE Stop: 01/13/18 14:20 Last Admin: 01/13/18 14:45 Dose: 40 mg Vital Signs - 8 hr 01/13/18 13:33 01/13/18 13:54 01/13/18 14:05 Pulse Rate 71 61 81 Respiratory Rate 16 19 15 Blood Pressure [Left Arm] 106/69 120/63 Pulse Oximetry 100 100 98 01/13/18 14:30 01/13/18 14:31 01/13/18 15:03 Pulse Rate 89 82 62 Respiratory Rate 24 18 15 Blood Pressure [Left Arm] 108/61 136/62 H Pulse Oximetry 96 97 99 <Jamie Coates, - Last Filed: 01/14/18 07:13> Orders Ordered: Discontinued Medications Albuterol (Ventolin) 2.5 mg INH NOW ONE Stop: 01/13/18 13:42 Last Admin: 01/13/18 13:54 Dose: 2.5 mg Albuterol (Ventolin) 2.5 mg INH NOW ONE Stop: 01/13/18 14:20 Last Admin: 01/13/18 14:31 Dose: 2.5 mg Ketorolac Tromethamine (Toradol) 30 mg IV NOW ONE Stop: 01/13/18 14:20 Last Admin: 01/13/18 14:45 Dose: 30 mg Pantoprazole Sodium (Protonix) 40 mg IV NOW ONE Stop: 01/13/18 14:20 Last Admin: 01/13/18 14:45 Dose: 40 mg Vital Signs - 8 hr 01/13/18 13:33 01/13/18 13:54 01/13/18 14:05 Pulse Rate 71 61 81 Respiratory Rate 16 19 15 Blood Pressure [Left Arm] 106/69 120/63 Pulse Oximetry 100 100 98 01/13/18 14:30 01/13/18 14:31 01/13/18 15:03 Pulse Rate 89 82 62 Respiratory Rate 24 18 15 Blood Pressure [Left Arm] 108/61 136/62 H Pulse Oximetry 96 97 99 MDM - Chest Pain <Nancy Odom PA-C - Last Filed: 01/13/18 21:08> Medical Records Data Attestation: I reviewed the patient's medical records. Records from 01/12 [facility] visit reviewed including unremarkable lab work which included D-dimer and troponin. Sed rate was normal. BNP was normal. Urinalysis was unremarkable, negative test. Lab Data Result diagrams: 01/13/18 12:50 01/13/18 12:50 Lab Results 01/13/18 01/13/18 Range/Units 12:50 12:50 WBC 8.9 (4.5-11.0) X10^3/uL RBC 4.32 (4.0-5.2) X10^6/uL Hgb 13.6 (12.0-16.0) g/dL Hct 38.8 (36-46) % MCV 89.8 (80-100) fL MCH 31.4 (26-34) PG MCHC 35.0 (30-36) % RDW 13.4 (11.6-14.8) % Plt Count 287 (150-400) X10^3/uL Neut % (Auto) 65.2 (50-75) % Lymph % (Auto) 20.9 L (25-40) % Kaufman % (Auto) 9.2 (3-14) % Eos % (Auto) 4.3 H (2-4) % Baso % (Auto) 0.4 (0-2) % Neut # (Auto) 5800 (8478-2358) /uL Sodium 142 (137-145) mmol/L Potassium 3.9 (3.4-5.1) mmol/L Chloride 107 (98-107) mmol/L Carbon Dioxide 25 (22-32) mmol/L BUN 13 (7-17) mg/dL Creatinine 0.70 (0.52-1.04) mg/dL Estimated GFR > 60.0 (>60) mL/min BUN/Creatinine Ratio 18.6 (6-22) Glucose 84 (70-100) mg/dL Calcium 8.8 (8.4-10.2) mg/dL Total Bilirubin 0.5 (0.2-1.3) mg/dL AST 29 (14-36) IU/L ALT 34 (9-52) IU/L Alkaline Phosphatase 70 (38-126) U/L Total Creatine Kinase 78 (30-135) U/L CK-MB (CK-2) TNP Troponin I < 0.012 (0.01-0.034) ng/mL Total Protein 7.2 (6.3-8.2) g/dL Albumin 4.1 (3.5-5.0) g/dL Globulin 3.1 (1.7-4.1) g/dL Albumin/Globulin Ratio 1.3 (1.0-2.8) Lipase 117 (23-300) U/L ECG Data Attestation: I personally reviewed and interpreted this ECG as follows: (Normal sinus rhythm, rate 76, normal axis) <Jamie Coates DO - Last Filed: 01/14/18 07:13> Lab Data Lab Results 01/13/18 01/13/18 Range/Units 12:50 12:50 WBC 8.9 (4.5-11.0) X10^3/uL RBC 4.32 (4.0-5.2) X10^6/uL Hgb 13.6 (12.0-16.0) g/dL Hct 38.8 (36-46) % MCV 89.8 (80-100) fL MCH 31.4 (26-34) PG MCHC 35.0 (30-36) % RDW 13.4 (11.6-14.8) % Plt Count 287 (150-400) X10^3/uL Neut % (Auto) 65.2 (50-75) % Lymph % (Auto) 20.9 L (25-40) % Kaufman % (Auto) 9.2 (3-14) % Eos % (Auto) 4.3 H (2-4) % Baso % (Auto) 0.4 (0-2) % Neut # (Auto) 5800 (0202-6012) /uL Sodium 142 (137-145) mmol/L Potassium 3.9 (3.4-5.1) mmol/L Chloride 107 (98-107) mmol/L Carbon Dioxide 25 (22-32) mmol/L BUN 13 (7-17) mg/dL Creatinine 0.70 (0.52-1.04) mg/dL Estimated GFR > 60.0 (>60) mL/min BUN/Creatinine Ratio 18.6 (6-22) Glucose 84 (70-100) mg/dL Calcium 8.8 (8.4-10.2) mg/dL Total Bilirubin 0.5 (0.2-1.3) mg/dL AST 29 (14-36) IU/L ALT 34 (9-52) IU/L Alkaline Phosphatase 70 (38-126) U/L Total Creatine Kinase 78 (30-135) U/L CK-MB (CK-2) TNP Troponin I < 0.012 (0.01-0.034) ng/mL Total Protein 7.2 (6.3-8.2) g/dL Albumin 4.1 (3.5-5.0) g/dL Globulin 3.1 (1.7-4.1) g/dL Albumin/Globulin Ratio 1.3 (1.0-2.8) Lipase 117 (23-300) U/L Discharge Plan Departure Patient Disposition: Home Clinical Impression: RAD (reactive airway disease), Sinusitis, Pleurisy Discharge Date/Time: 01/13/18 16:10 Interventions: ED Discharge Assessment Last Done: 01/13/18 16:09 Instructions: DI for Pleurisy, DI for Reactive Airway Disease-Adult Activity Restrictions/Additional Instructions: I think you have a sinus and lung infection (sinusitis/bronchitis), and also an asthma like reaction that is causing your tight chest and difficulty breathing. I think this has been exacerbated due to your smoking as well as the poor air quality right now. I think you also have inflammation in your chest muscles lung areas contributing to your pain. Since you are feeling better, we can try treating the infection with an antibiotic and you can monitor at home. You should use the albuterol inhaler as often as needed for chest tightness and cough. Take the prescription anti-inflammatory once daily to help with the chest pain. Make sure you follow-up with your PCP this week for recheck. You should stop smoking. Please be sure to return if you have any acutely worsening symptoms again as we discussed Prescriptions: New meloxicam [Mobic] 15 mg tablet 15 mg PO DAILY Qty: 20 RF: 0 albuterol sulfate 90 mcg/actuation HFA aerosol inhaler 2 puff INHALATION Q4-6H PRN (Reason: shortness of breath) Qty: 6.7 RF: 0 amoxicillin-pot clavulanate [Augmentin] 875-125 mg tablet 1 tab PO BID Qty: 20 RF: 0 No Action levothyroxine 100 mcg tablet 1 tab PO DAILY RF: 0 ibuprofen 400 mg tablet 1 tab PO Q6H PRN (Reason: Pain, Moderate) RF: 0 omeprazole 20 mg capsule,delayed release(DR/EC) 1 cap PO BID RF: 0 epinephrine [EpiPen 2-Ant] 0.3 MG/0.3 ML auto-injector 0.3 mg SQ X1 PRN (Reason: Allergic Reaction) RF: 0 Referrals: Chelsey Mccabe PA-C [Non-Staff] - <Jamie Coates DO - Last Filed: 01/14/18 07:13> Cosign ED Attending Josr Attestation: I was available for consultation during this patient's emergency department encounter
--- NOTE | 2018-01-13 13:42 | DI.RAD.S_ITS ---
PROCEDURE: XR CHEST 1V INDICATIONS: CP, dyspnea TECHNIQUE: Lateral view of the chest was acquired. COMPARISON: [facility], , CHEST 2 VIEW, 02/05/2017, 22:52. [facility], , XR CHEST 1V, 01/13/2018, 12:51. FINDINGS: Lungs and pleura: No pleural effusions. Lungs are clear. Mediastinum: Heart size is normal. Bones and chest wall: No suspicious bony lesions. Overlying soft tissues appear unremarkable. IMPRESSION: 1. Lateral view demonstrates no definite acute cardiopulmonary disease. Dictated by: Vasyl Magana M.D. on 01/13/2018 at 14:25 Approved by: Vasyl Magana M.D. on 01/13/2018 at 14:44
[2018-01-13 13:52] LABS: Add Manual Diff / Slide Review NO; Basophils Percent Auto 0.4 % (0-2); Eosinophils Percent Auto 4.3 % (2-4); Hematocrit 38.8 % (36-46); Hemoglobin 13.6 g/dL (12.0-16.0); Lymphocytes Percent Auto 20.9 % (25-40); Mean Corpuscular Hemoglobin 31.4 PG (26-34); Mean Corpuscular Volume 89.8 fL (80-100); Monocytes Percent Auto 9.2 % (3-14); Neutrophils Absolute Auto 5800 /uL (3000-5900); Neutrophils Percent Auto 65.2 % (50-75); Platelet Count 287 X10^3/uL (150-400); Red Blood Cell Count 4.32 X10^6/uL (4.0-5.2); Red Cell Distribution Width 13.4 % (11.6-14.8); White Blood Cell Count 8.9 X10^3/uL (4.5-11.0)
[2018-01-13] MEDS: ALBUTEROL 2.5 MG/3 ML NEB (ADULT) INH ×2 (13:54→14:31)
[2018-01-13 14:05] LABS: Alanine Aminotransferase 34 IU/L (9-52); Albumin 4.1 g/dL (3.5-5.0); Albumin Globulin Ratio 1.3 (1.0-2.8); Alkaline Phosphatase 70 U/L (38-126); Aspartate Aminotransferase 29 IU/L (14-36); BUN Creatinine Ratio 18.6 (6-22); Bilirubin Total 0.5 mg/dL (0.2-1.3); Blood Urea Nitrogen 13 mg/dL (7-17); Calcium 8.8 mg/dL (8.4-10.2); Carbon Dioxide 25 mmol/L (22-32); Chloride 107 mmol/L (98-107); Creatine Kinase 78 U/L (30-135); Estimated Glomerular Filt Rate > 60.0 mL/min (>60); Globulin 3.1 g/dL (1.7-4.1); Glucose 84 mg/dL (70-100); HEMOLYSIS < 15 (0-50); Lipase 117 U/L (23-300); Potassium 3.9 mmol/L (3.4-5.1); Sodium 142 mmol/L (137-145); Total Protein 7.2 g/dL (6.3-8.2)
[2018-01-13 14:23] LABS: Troponin I < 0.012 ng/mL (0.01-0.034)
[2018-01-13] MEDS: PANTOPRAZOLE 40 MG VIAL IV (14:45)
[2018-01-13] MEDS: KETOROLAC 60 MG/2 ML VIAL 30 MG IV (14:45)
== END 2018-01-13 16:10 | disposition home or self-care (01) ==
PROVIDERS: Emergency Provider Internal Medicine
DX: J45.909 Unspecified asthma, uncomplicated (principal); J32.9 Chronic sinusitis, unspecified; R09.1 Pleurisy
CPT/HCPCS: 36591; 71045; 80053; 82550; 82553; 83690; 84484; 85025; 93005; 93010; 93041; 94640; 96374; 96375; 99283; 99285; C9113; J1885; J7613

== ENCOUNTER → 2018-02-05 16:28 | Outpatient (CLI) | payer MEDICAID, SELFPAY ==
--- NOTE | 2018-02-05 16:30 | DI.RAD.S_ITS ---
PROCEDURE: XR CHEST 2V INDICATIONS: COUGH TECHNIQUE: 2 views of the chest were acquired. COMPARISON: [facility], , CHEST 1 VIEW, 06/04/2017, 20:20. [facility], CR, XR CHEST 1V, 01/13/2018, 12:51. [facility], CR, XR CHEST 1V, 01/13/2018, 13:28. FINDINGS: Surgical changes and devices: None. Lungs and pleura: No pleural effusions or pneumothorax. Lungs are clear. Mediastinum: Mediastinal contours are normal. Heart size is normal. Bones and chest wall: No suspicious bony abnormalities. Soft tissues appear unremarkable. IMPRESSION: No acute cardiopulmonary disease. Dictated by: Rain Quintero M.D. on 02/05/2018 at 16:48 Approved by: Rain Quintero M.D. on 02/05/2018 at 16:48
== END ==
PROVIDERS: Visit Provider Physician Assistant
DX: R07.89 Other chest pain (principal); R05 Cough
CPT/HCPCS: 71046

== ENCOUNTER 2018-05-07 19:14 | Emergency (ER) | payer MEDICAID, OTHER, SELFPAY ==
[2018-05-07 19:18] VITALS: BP 143/96; PULSE 95; RESP 16; TEMP 37.4; O2SAT 99
--- NOTE | 2018-05-07 19:35 | ED_ITS ---
HPI - Abdominal Pain General Chief Complaint: Abdominal Pain Stated Complaint: LEFT LOWER ABD PAINS Time Seen by Provider: 05/07/18 19:32 Source: patient Mode of arrival: ambulatory Limitations: no limitations History of Present Illness HPI narrative: 37-year-old female left-sided abdominal pain. Was seen at an outside hospital 2 days ago. Had a urinalysis and labs done. Was able to review the notes from this visit. The urinalysis was nitrite positive. Patient was having dysuria. At that time no antibiotics were given. The patient was informed to follow up with her primary doctor. No CT scan was performed. She followed up with her primary doctor. Continued having left- sided abdominal pain. Was given a prescription for Bactrim which the patient has taken 1 pill of this. She returns today for the same left-sided abdominal pain. She was asked to call her primary doctor tomorrow for follow-up during the visit earlier today. Related Data Home Medications Medication Instructions Recorded Confirmed epinephrine [EpiPen 2-Ant] 0.3 mg SQ X1 PRN 01/13/18 01/13/18 ibuprofen 1 tab PO Q6H PRN 01/13/18 01/13/18 levothyroxine 1 tab PO DAILY 01/13/18 01/13/18 omeprazole 1 cap PO BID 01/13/18 01/13/18 Previous Rx's Medication Instructions Recorded albuterol sulfate 2 puff INHALATION Q4-6H PRN #6.7 01/13/18 gram amoxicillin-pot clavulanate 1 tab PO BID #20 tab 01/13/18 [Augmentin] meloxicam [Mobic] 15 mg PO DAILY #20 tab 01/13/18 Allergies Allergy/AdvReac Type Severity Reaction Status Date / Time shellfish derived Allergy Severe ALL Verified 11/26/17 00:21 SEAFOOD, POSS ANAPHYLXIS R/T EXPOSURE @ WORK iodine Allergy Mild CONTRAST - Verified 11/26/17 00:21 BODY GOES NUMB Review of Systems Constitutional Denies fever(s) and Denies headache(s) ENT Ears, Nose, Mouth, and Throat: Denies headache(s) Cardiovascular Denies chest pain and Denies dyspnea Respiratory Denies dyspnea Gastrointestinal Gastrointestinal: Reports abdominal pain, Denies nausea and Denies vomiting Genitourinary Reports dysuria Musculoskeletal Denies myalgias and Denies arthralgias Integumentary/Breasts Denies lesions and Denies rash Neurologic Denies headache(s) PFSH Medical History Hypothyroidism (Chronic) Surgical History History of cholecystectomy (Resolved) Status post delivery (02/02/13) Status post knee surgery Status post tubal ligation (06/17/16) Social History Smoking Status: Current every day smoker alcohol intake: never Exam Initial Vital Signs Initial Vital Signs: Vital Signs Temperature 99.3 F 05/07/18 19:18 Pulse Rate 95 H 05/07/18 19:18 Respiratory Rate 16 05/07/18 19:18 Blood Pressure 143/96 H 05/07/18 19:18 Pulse Oximetry 99 05/07/18 19:18 Const General: cooperative, healthy appearing, comfortable, well developed, well groomed and No acute distress Orientation: alert, awake and oriented x3 HENMT Head: normal to inspection and normocephalic Resp Effort & Inspection: normal respiratory effort Auscultation: clear to auscultation bilaterally Cardio Rate: regular rate Rhythm: regular rhythm GI Inspection: non-distended Palpation: soft, No firm and tender (Left-sided abdomen) Skin Lesions: no lesions Rashes: no rashes Neuro General: alert, awake and oriented x3 Cognition: normal cognition Speech: speech normal Gait: normal gait Extrem General: capillary refill normal Psych Appearance: grossly normal and well kempt Course Orders Ordered: ED Orders 05/07/18 19:55 Complete Blood Count AUTO DIFF Stat Comprehensive Metabolic Panel Stat Lipase Stat 05/07/18 20:07 CT abdomen pelvis wo con Stat Discontinued Medications Sodium Chloride (Normal Saline 0.9%) 1,000 mls @ 1,000 mls/hr IV BOLUS ONE Stop: 05/07/18 20:46 Last Infusion: 05/07/18 20:58 Dose: 0 mls/hr Admin: 05/07/18 19:57 Dose: 1,000 mls/hr Morphine Sulfate (Morphine) 4 mg IV NOW ONE Stop: 05/07/18 19:48 Last Admin: 05/07/18 19:57 Dose: 4 mg Ondansetron HCl (Zofran) 4 mg IV NOW ONE Stop: 05/07/18 19:48 Last Admin: 05/07/18 19:58 Dose: 4 mg Vital Signs - 8 hr 05/07/18 19:18 05/07/18 20:14 05/07/18 21:05 Temperature 99.3 F Pulse Rate 95 H 85 81 Respiratory Rate 16 18 14 Blood Pressure 143/96 H Blood Pressure [Right Arm] 122/77 122/72 Pulse Oximetry 99 97 100 05/07/18 22:06 Temperature Pulse Rate 83 Respiratory Rate 16 Blood Pressure Blood Pressure [Right Arm] 121/80 Pulse Oximetry 97 MDM - Abdominal Pain Medical Records Attestation: I reviewed the patient's medical records. Lab Data Attestation: I reviewed the patient's lab results. Result diagrams: 05/07/18 19:55 05/07/18 19:55 Lab Results 05/07/18 05/07/18 Range/Units 19:55 19:55 WBC 8.7 (4.5-11.0) X10^3/uL RBC 4.62 (4.0-5.2) X10^6/uL Hgb 14.8 (12.0-16.0) g/dL Hct 42.8 (36-46) % MCV 92.7 (80-100) fL MCH 32.1 (26-34) PG MCHC 34.6 (30-36) % RDW 13.8 (11.6-14.8) % Plt Count 302 (150-400) X10^3/uL Neut % (Auto) 70.5 (50-75) % Lymph % (Auto) 18.7 L (25-40) % [place] % (Auto) 7.5 (3-14) % Eos % (Auto) 2.6 (2-4) % Baso % (Auto) 0.7 (0-2) % Neut # (Auto) 6100 (4185-9373) /uL Sodium 141 (137-145) mmol/L Potassium 3.8 (3.4-5.1) mmol/L Chloride 105 (98-107) mmol/L Carbon Dioxide 23 (22-32) mmol/L BUN 7 (7-17) mg/dL Creatinine 0.70 (0.52-1.04) mg/dL Estimated GFR > 60.0 (>60) mL/min BUN/Creatinine Ratio 10.0 (6-22) Glucose 102 H (70-100) mg/dL Calcium 8.9 (8.4-10.2) mg/dL Total Bilirubin 0.6 (0.2-1.3) mg/dL AST 25 (14-36) IU/L ALT 26 (9-52) IU/L Alkaline Phosphatase 88 (38-126) U/L Total Protein 7.9 (6.3-8.2) g/dL Albumin 4.6 (3.5-5.0) g/dL Globulin 3.3 (1.7-4.1) g/dL Albumin/Globulin Ratio 1.4 (1.0-2.8) Lipase 61 (23-300) U/L Point of care testing: Urine Dip Bedside Urine Glucose Negative Bedside Urine Bilirubin - Negative Bedside Urine Ketone - Negative Urine Specific [place] 1.015 Bedside Urine Occult Blood - Negative Bedside Urine pH 8.0 Bedside Urine Protein - Negative Bedside Urine Urobilinogen - Negative Bedside Urine Nitrite - Negative Bedside Urine Leukocytes - Negative Esterase Imaging Data CT scan - abdomen: Radiologist's impression: PROCEDURE: CT ABDOMEN PELVIS WO CON INDICATIONS: Left-sided lower abdominal pain. TECHNIQUE: After the administration of oral contrast, 5 mm thick sections acquired from the diaphragms to the symphysis. 5 mm coronal and sagittal reformats were performed. For radiation dose reduction, the following was used: automated exposure control, adjustment of mA and/or kV according to patient size. COMPARISON: [facility], US, US ABDOMEN LIMITED, 10/17/2017, 0:11. [facility], CR, XR CHEST 2V, 02/05/2018, 16:30. [facility], CT, ABDOMEN WITH CONTRAST, 06/19/2009, 11:25. FINDINGS: Image quality: Excellent. ABDOMEN: Lung bases: Bibasilar atelectasis. Heart size is normal. Tiny hiatal hernia. Solid organs: Liver is normal in size. Gallbladder is normal. Pancreas is normal in size. Spleen is normal in size. No adrenal nodules. Both kidneys are normal in size, without hydronephrosis or nephrolithiasis. Peritoneum and bowel: Stomach is distended. Bowel loops demonstrate normal wall thickness and caliber. The appendix is normal. No free air. A small amount free fluid is present. Nodes and vessels: No retroperitoneal or mesenteric adenopathy by size criteria. Aorta and inferior vena cava are normal in size. Miscellaneous: Small fat-containing umbilical hernia is present. PELVIS: Genitourinary: Bladder wall thickness is normal. Uterus is normal. There is air within endocervical canal. The ovaries are normal. There is a small amount of free fluid in cul-de-sac. Miscellaneous: No inguinal hernias or adenopathy. Bones: No suspicious bony lesions. No vertebral body compression fractures. IMPRESSION: 1. No definitive CT findings to explain left lower abdominal pain. No diverticulitis. 2. Distended stomach, which is a nonspecific finding. 3. There is a small amount of free fluid in the cul-de-sac, probably within physiological limits. Dictated by: Rain Quintero M.D. on 05/07/2018 at 21:53 MDM Narrative Medical decision making narrative: CT scan shows no evidence of diverticulitis or appendicitis. Patient has benign abdominal exam. She is currently being treated with Bactrim for the nitrite positive urinalysis couple days ago. Her urinalysis today was unremarkable. I did inform her that she should continue the antibiotics and she was also having dysuria. Informed her that she needed to contact her primary care doctor tomorrow for a follow-up which she was already instructed to do by her primary doctor. Patient was given return precautions. She expressed understanding and agreement with plan. Discharge Plan Departure Patient Disposition: Home Clinical Impression: Abdominal pain Discharge Date/Time: 05/07/18 22:35 Interventions: ED Discharge Assessment Last Done: 05/07/18 22:37 Instructions: DI for Abdominal Pain-Adult Activity Restrictions/Additional Instructions: I do recommend that you continue the antibiotics that you already have a prescription for as directed. I do recommend that you contact your primary care doctor tomorrow like your instructed for follow-up. Return to the emergency department for any new symptoms Prescriptions: No Action levothyroxine 100 mcg tablet 1 tab PO DAILY RF: 0 ibuprofen 400 mg tablet 1 tab PO Q6H PRN (Reason: Pain, Moderate) RF: 0 omeprazole 20 mg capsule,delayed release(DR/EC) 1 cap PO BID RF: 0 epinephrine [EpiPen 2-Ant] 0.3 MG/0.3 ML auto-injector 0.3 mg SQ X1 PRN (Reason: Allergic Reaction) RF: 0 meloxicam [Mobic] 15 mg tablet 15 mg PO DAILY Qty: 20 RF: 0 albuterol sulfate 90 mcg/actuation HFA aerosol inhaler 2 puff INHALATION Q4-6H PRN (Reason: shortness of breath) Qty: 6.7 RF: 0 amoxicillin-pot clavulanate [Augmentin] 875-125 mg tablet 1 tab PO BID Qty: 20 RF: 0
[2018-05-07] MEDS: MORPHINE 4 MG/ML INJ IV (19:57)
[2018-05-07] MEDS: SODIUM CHLORIDE 0.9% 1,000 ML 1000 ML IV (19:57)
[2018-05-07] MEDS: ONDANSETRON 4 MG/2 ML INJ IV (19:58)
[2018-05-07 20:04] LABS: Add Manual Diff / Slide Review NO; Basophils Percent Auto 0.7 % (0-2); Eosinophils Percent Auto 2.6 % (2-4); Hematocrit 42.8 % (36-46); Hemoglobin 14.8 g/dL (12.0-16.0); Lymphocytes Percent Auto 18.7 % (25-40); Mean Corpuscular HGB Conc 34.6 % (30-36); Mean Corpuscular Hemoglobin 32.1 PG (26-34); Mean Corpuscular Volume 92.7 fL (80-100); Monocytes Percent Auto 7.5 % (3-14); Neutrophils Absolute Auto 6100 /uL (1500-7000); Neutrophils Percent Auto 70.5 % (50-75); Platelet Count 302 X10^3/uL (150-400); Red Blood Cell Count 4.62 X10^6/uL (4.0-5.2); Red Cell Distribution Width 13.8 % (11.6-14.8); White Blood Cell Count 8.7 X10^3/uL (4.5-11.0)
--- NOTE | 2018-05-07 20:07 | DI.CT.S_ITS ---
PROCEDURE: CT ABDOMEN PELVIS WO CON INDICATIONS: Left-sided lower abdominal pain. TECHNIQUE: After the administration of oral contrast, 5 mm thick sections acquired from the diaphragms to the symphysis. 5 mm coronal and sagittal reformats were performed. For radiation dose reduction, the following was used: automated exposure control, adjustment of mA and/or kV according to patient size. COMPARISON: [facility], US, US ABDOMEN LIMITED, 10/17/2017, 0:11. [facility], CR, XR CHEST 2V, 02/05/2018, 16:30. [facility], CT, ABDOMEN WITH CONTRAST, 06/19/2009, 11:25. FINDINGS: Image quality: Excellent. ABDOMEN: Lung bases: Bibasilar atelectasis. Heart size is normal. Tiny hiatal hernia. Solid organs: Liver is normal in size. Gallbladder is normal. Pancreas is normal in size. Spleen is normal in size. No adrenal nodules. Both kidneys are normal in size, without hydronephrosis or nephrolithiasis. Peritoneum and bowel: Stomach is distended. Bowel loops demonstrate normal wall thickness and caliber. The appendix is normal. No free air. A small amount free fluid is present. Nodes and vessels: No retroperitoneal or mesenteric adenopathy by size criteria. Aorta and inferior vena cava are normal in size. Miscellaneous: Small fat-containing umbilical hernia is present. PELVIS: Genitourinary: Bladder wall thickness is normal. Uterus is normal. There is air within endocervical canal. The ovaries are normal. There is a small amount of free fluid in cul-de-sac. Miscellaneous: No inguinal hernias or adenopathy. Bones: No suspicious bony lesions. No vertebral body compression fractures. IMPRESSION: 1. No definitive CT findings to explain left lower abdominal pain. No diverticulitis. 2. Distended stomach, which is a nonspecific finding. 3. There is a small amount of free fluid in the cul-de-sac, probably within physiological limits. Dictated by: Rain Quintero M.D. on 05/07/2018 at 21:53 Approved by: Rain Quintero M.D. on 05/07/2018 at 22:03
[2018-05-07 20:14] VITALS: BP 122/77; PULSE 85; RESP 18; O2SAT 97
[2018-05-07 20:15] LABS: Alanine Aminotransferase 26 IU/L (9-52); Albumin 4.6 g/dL (3.5-5.0); Albumin Globulin Ratio 1.4 (1.0-2.8); Alkaline Phosphatase 88 U/L (38-126); Aspartate Aminotransferase 25 IU/L (14-36); Bilirubin Total 0.6 mg/dL (0.2-1.3); Blood Urea Nitrogen 7 mg/dL (7-17); Calcium 8.9 mg/dL (8.4-10.2); Carbon Dioxide 23 mmol/L (22-32); Chloride 105 mmol/L (98-107); Estimated Glomerular Filt Rate > 60.0 mL/min (>60); Globulin 3.3 g/dL (1.7-4.1); Glucose 102 mg/dL (70-100); HEMOLYSIS < 15 (0-50); Lipase 61 U/L (23-300); Potassium 3.8 mmol/L (3.4-5.1); Sodium 141 mmol/L (137-145); Total Protein 7.9 g/dL (6.3-8.2)
[2018-05-07 21:05] VITALS: BP 122/72; PULSE 81; RESP 14; O2SAT 100
[2018-05-07 22:06] VITALS: BP 121/80; PULSE 83; RESP 16; O2SAT 97
== END 2018-05-07 22:35 | disposition home or self-care (01) ==
PROVIDERS: Emergency Provider Emergency Medicine
DX: R10.9 Unspecified abdominal pain (principal)
CPT/HCPCS: 36591; 74176; 80053; 81003; 83690; 85025; 96361; 96374; 96375; 99283; 99284; J2270; J2405

== ENCOUNTER 2018-05-10 01:31 | Emergency (ER) | payer MEDICAID, OTHER, SELFPAY ==
[2018-05-10 01:43] VITALS: BP 104/61; PULSE 116; RESP 18; TEMP 36.7; O2SAT 99; BMI 28.3
--- NOTE | 2018-05-10 01:51 | DI.RAD.S_ITS ---
PROCEDURE: XR TIBIA FIBULA RT 2V INDICATIONS: hit her L smith on the corner of bed, laceration TECHNIQUE: 2 views of the tibia and fibula were acquired. COMPARISON: None. FINDINGS: Bones: No acute fractures or dislocations. Well corticated fragment adjacent to tip of lateral malleolus is seen suggestive of old healed injury. No suspicious bony lesions. Soft tissues: No suspicious soft tissue calcifications or masses. IMPRESSION: No acute left lower leg fracture or dislocation. Old injury involving tip of lateral malleolus. Dictated by: Cyrus Luna M.D. on 05/10/2018 at 9:49 Approved by: Cyrus Luna M.D. on 05/10/2018 at 9:49
--- NOTE | 2018-05-10 01:55 | ED.WOUNDLAC ---
HPI - Wound/Laceration General Chief Complaint: Wound/Laceration Stated Complaint: CUT ON RIGHT LEG Time Seen by Provider: 05/10/18 01:55 Source: patient Mode of arrival: ambulatory Limitations: no limitations History of Present Illness HPI narrative: The patient was moving around her bedroom at home about 3 hr prior to arrival. She was in the dark and bumped into the edge of her bed. She sustained a laceration to the left mid anterior fibula area. Bleeding is controlled. She has significant pain to the area. She is ambulatory. She has a laceration. Her tetanus is up-to-date. Related Data Home Medications Medication Instructions Recorded Confirmed epinephrine [EpiPen 2-Ant] 0.3 mg SQ X1 PRN 01/13/18 01/13/18 ibuprofen 1 tab PO Q6H PRN 01/13/18 01/13/18 levothyroxine 1 tab PO DAILY 01/13/18 01/13/18 omeprazole 1 cap PO BID 01/13/18 01/13/18 Previous Rx's Medication Instructions Recorded albuterol sulfate 2 puff INHALATION Q4-6H PRN #6.7 01/13/18 gram amoxicillin-pot clavulanate 1 tab PO BID #20 tab 01/13/18 [Augmentin] meloxicam [Mobic] 15 mg PO DAILY #20 tab 01/13/18 Allergies Allergy/AdvReac Type Severity Reaction Status Date / Time shellfish derived Allergy Severe ALL Verified 05/10/18 01:47 SEAFOOD, POSS ANAPHYLXIS R/T EXPOSURE @ WORK iodine Allergy Mild CONTRAST - Verified 05/10/18 01:47 BODY GOES NUMB Review of Systems Constitutional Denies chills, Denies fever(s), Denies lethargy and Denies weakness Musculoskeletal Reports as per HPI, Denies muscle weakness, Denies numbness and Denies tingling Integumentary/Breasts Denies pruritus, Denies erythema, Denies rash and Reports wounds ( left leg) Neurologic Denies numbness, Denies tingling and Denies weakness PFSH Medical History Hypothyroidism (Chronic) Surgical History History of cholecystectomy (Resolved) Status post delivery (02/02/13) Status post knee surgery Status post tubal ligation (06/17/16) Social History Smoking Status: Current every day smoker alcohol intake: never Exam Initial Vital Signs Initial Vital Signs: Vital Signs Temperature 98.1 F 05/10/18 01:43 Pulse Rate 116 H 05/10/18 01:43 Respiratory Rate 18 05/10/18 01:43 Blood Pressure 104/61 05/10/18 01:43 Pulse Oximetry 99 05/10/18 01:43 Const General: cooperative, healthy appearing and well developed Nutritional Appearance: well nourished Orientation: alert, awake, oriented x3 and not confused Skin General: No petechiae Lesions: no lesions Rashes: no rashes Neuro General: alert, oriented x3, gait normal and no focal motor deficits Speech: speech normal Extrem General: full ROM and other ( 4 cm curvilinear laceration to the left mid anterior fibula. Wound edges are somewhat frayed. The wound is not full thickness. There is no obvious contamination or foreign body. There is no active bleeding.) Procedures Laceration Repair Laceration 1: Site: lower extremity Side (If applicable): left Size (cm): 4 Description: linear and contaminated Depth: simple, single layer Local Anesthetic: lidocaine 1% Amount of anesthesia used (mL): 3 Pre-repair: wound explored, irrigated extensively and deep structures intact Skin layer closed with: nylon Size (cm): 5-0 Course Orders Ordered: ED Orders 05/10/18 01:51 XR tibia fibula LT 2V Stat Discontinued Medications Ibuprofen (Advil) 800 mg PO NOW ONE Stop: 05/10/18 04:01 Vital Signs - 8 hr 05/10/18 01:43 05/10/18 03:36 Temperature 98.1 F Pulse Rate 116 H 102 H Respiratory Rate 18 18 Blood Pressure 104/61 Pulse Oximetry 99 100 MDM - Wound/Laceration Imaging Data Left leg: My impression: Left tibia and fibula are intact, no fracture seen. MDM Narrative Medical decision making narrative: Following the laceration repair, the wound was further cleansed by the patient's nurse. The wound was bandaged. The patient was started on Ibuprofen and ice packs. Discharge Plan Departure Patient Disposition: Home Clinical Impression: Laceration of left leg Instructions: DI for Laceration Repair Activity Restrictions/Additional Instructions: Advil 3 tablets every 6 hr as needed for pain. Apply ice packs to the area frequently for the next 2 days. Take the bandage off in 2 days. Follow up with your doctor in 10 days for suture removal. Return to the ER as needed. Prescriptions: No Action levothyroxine 100 mcg tablet 1 tab PO DAILY RF: 0 ibuprofen 400 mg tablet 1 tab PO Q6H PRN (Reason: Pain, Moderate) RF: 0 omeprazole 20 mg capsule,delayed release(DR/EC) 1 cap PO BID RF: 0 epinephrine [EpiPen 2-Ant] 0.3 MG/0.3 ML auto-injector 0.3 mg SQ X1 PRN (Reason: Allergic Reaction) RF: 0 meloxicam [Mobic] 15 mg tablet 15 mg PO DAILY Qty: 20 RF: 0 albuterol sulfate 90 mcg/actuation HFA aerosol inhaler 2 puff INHALATION Q4-6H PRN (Reason: shortness of breath) Qty: 6.7 RF: 0 amoxicillin-pot clavulanate [Augmentin] 875-125 mg tablet 1 tab PO BID Qty: 20 RF: 0
--- NOTE | 2018-05-10 03:35 | PC.NURSE ---
EMLA applied on affected site. Wound cleansed with Hibiclens and NS and pt tolerated well
[2018-05-10 03:36] VITALS: PULSE 102; RESP 18; O2SAT 100
[2018-05-10] MEDS: IBUPROFEN 400 MG TABLET 800 MG PO (04:10)
== END 2018-05-10 04:16 | disposition home or self-care (01) ==
PROVIDERS: Emergency Provider Emergency Medicine
DX: S81.812A Laceration without foreign body, left lower leg, initial encounter (principal); W26.8XXA Contact with other sharp object(s), not elsewhere classified, initial encounter
CPT/HCPCS: 12002; 73590; 99283

== ENCOUNTER 2018-05-20 10:33 | Emergency (ER) | payer MEDICAID, OTHER, SELFPAY ==
[2018-05-20 10:54] VITALS: BP 114/81; PULSE 75; RESP 14; TEMP 36.8; O2SAT 100
--- NOTE | 2018-05-20 12:04 | ED.RECABL ---
HPI - Recheck/Abnormal Lab/Rx <Nancy Odom PA-C - Last Filed: 05/20/18 13:46> General Chief Complaint: Recheck/Abnormal Lab/Rx Stated Complaint: STICHES REMOVAL Time Seen by Provider: 05/20/18 12:04 Source: patient Mode of arrival: ambulatory Limitations: no limitations History of Present Illness HPI narrative: Patient returns to have sutures removed from her left smith that were placed here 10 days ago. She states she is feeling well, no problems with the wound such as redness or drainage, no fever or other new complaints today Related Data Home Medications Medication Instructions Recorded Confirmed epinephrine [EpiPen 2-Ant] 0.3 mg SQ X1 PRN 01/13/18 01/13/18 ibuprofen 1 tab PO Q6H PRN 01/13/18 01/13/18 levothyroxine 1 tab PO DAILY 01/13/18 01/13/18 omeprazole 1 cap PO BID 01/13/18 01/13/18 Previous Rx's Medication Instructions Recorded albuterol sulfate 2 puff INHALATION Q4-6H PRN #6.7 01/13/18 gram amoxicillin-pot clavulanate 1 tab PO BID #20 tab 01/13/18 [Augmentin] meloxicam [Mobic] 15 mg PO DAILY #20 tab 01/13/18 Allergies Allergy/AdvReac Type Severity Reaction Status Date / Time shellfish derived Allergy Severe ALL Verified 05/10/18 01:47 SEAFOOD, POSS ANAPHYLXIS R/T EXPOSURE @ WORK iodine Allergy Mild CONTRAST - Verified 05/10/18 01:47 BODY GOES NUMB Review of Systems <Nancy Odom PA-C - Last Filed: 05/20/18 13:46> Review of Systems All systems reviewed & are unremarkable except as noted in HPI and below Exam <Nancy Odom PA-C - Last Filed: 05/20/18 13:46> Narrative Exam Narrative: GENERAL APPEARANCE: Patient sitting comfortably, in no distress. LUNGS: Clear to auscultation bilaterally. HEART: Rate and rhythm regular without murmur, normal S1 and S2, no S3 or S4. DERMATOLOGIC: Left smith there is a well healed, scabbed wound with all sutures intact Initial Vital Signs Initial Vital Signs: Vital Signs Temperature 98.3 F 05/20/18 10:54 Pulse Rate 75 05/20/18 10:54 Respiratory Rate 14 05/20/18 10:54 Blood Pressure 114/81 05/20/18 10:54 Pulse Oximetry 100 05/20/18 10:54 <Khadijah Oden DO - Last Filed: 05/21/18 19:09> Initial Vital Signs Initial Vital Signs: Vital Signs Temperature 98.3 F 05/20/18 10:54 Pulse Rate 75 05/20/18 10:54 Respiratory Rate 14 05/20/18 10:54 Blood Pressure 114/81 05/20/18 10:54 Pulse Oximetry 100 05/20/18 10:54 Procedures <Nancy Odom PA-C - Last Filed: 05/20/18 13:46> [facility] [place]: 6 sutures removed per nursing Course <Nancy Odom PA-C - Last Filed: 05/20/18 13:46> Vital Signs - 8 hr 05/20/18 10:54 05/20/18 12:47 Temperature 98.3 F Pulse Rate 75 78 Respiratory Rate 14 20 Blood Pressure 114/81 124/83 Pulse Oximetry 100 100 <Khadijah Oden DO - Last Filed: 05/21/18 19:09> Vital Signs - 8 hr 05/20/18 10:54 05/20/18 12:47 Temperature 98.3 F Pulse Rate 75 78 Respiratory Rate 14 20 Blood Pressure 114/81 124/83 Pulse Oximetry 100 100 Discharge Plan Departure Patient Disposition: Home Clinical Impression: Encounter for removal of sutures Discharge Date/Time: 05/20/18 12:48 Interventions: ED Discharge Assessment Last Done: 05/20/18 12:47 Instructions: DI for Suture Removal Prescriptions: No Action levothyroxine 100 mcg tablet 1 tab PO DAILY RF: 0 ibuprofen 400 mg tablet 1 tab PO Q6H PRN (Reason: Pain, Moderate) RF: 0 omeprazole 20 mg capsule,delayed release(DR/EC) 1 cap PO BID RF: 0 epinephrine [EpiPen 2-Ant] 0.3 MG/0.3 ML auto-injector 0.3 mg SQ X1 PRN (Reason: Allergic Reaction) RF: 0 meloxicam [Mobic] 15 mg tablet 15 mg PO DAILY Qty: 20 RF: 0 albuterol sulfate 90 mcg/actuation HFA aerosol inhaler 2 puff INHALATION Q4-6H PRN (Reason: shortness of breath) Qty: 6.7 RF: 0 amoxicillin-pot clavulanate [Augmentin] 875-125 mg tablet 1 tab PO BID Qty: 20 RF: 0 Referrals: Chelsey Mccabe PA-C [Primary Care Provider] - <Khadijah Oden DO - Last Filed: 05/21/18 19:09> [facility] ED Attending Santosature Attestation: I was immediately available in the department for consultation. Documentation has been reviewed. I agree with assessment and plan.
[2018-05-20 12:47] VITALS: BP 124/83; PULSE 78; RESP 20; O2SAT 100
== END 2018-05-20 12:48 | disposition home or self-care (01) ==
PROVIDERS: Emergency Provider Internal Medicine; PCP Physician Assistant
DX: Z48.02 Encounter for removal of sutures (principal)
CPT/HCPCS: 99281; 99282

== ENCOUNTER → 2018-10-12 09:52 | Outpatient (CLI) | payer MEDICAID, OTHER, SELFPAY ==
--- NOTE | 2018-10-12 | DI.US.S_ITS ---
PROCEDURE: US PELVIC COMPLETE INDICATIONS: PELVIC PAIN TECHNIQUE: Real-time scanning was performed of the pelvic organs, with image documentation. Additional endovaginal scanning was necessary due to incomplete visualization of the adnexal and endometrial structures by transabdominal scanning. COMPARISON: [facility], , PELVIC COMPLETE, 09/26/2015, 16:27. FINDINGS: Transabdominal scanning: Limited scanning through the kidneys shows no hydronephrosis. No pathologic free abdominal or pelvic fluid. Endovaginal scanning: Uterus: Uterus is normal in size at 10.6 x 4.0 x 4.9 cm. The endometrium measures 7-8 mm in combined thickness. Ovaries: Right ovary measures 2.5 and 1.8 x 2.0 cm and is unremarkable. Left ovary not well seen. No gross adnexal cysts or mass IMPRESSION: Left ovary not sonographically assessed. Otherwise, negative examination as above. Dictated by: Juanito Dempsey M.D. on 10/12/2018 at 16:40 Approved by: Juanito Dempsey M.D. on 10/12/2018 at 16:41
== END ==
PROVIDERS: PCP Physician Assistant; Visit Provider Physician Assistant
DX: R10.2 Pelvic and perineal pain (principal)
CPT/HCPCS: 76830; 76856

== ENCOUNTER 2019-04-09 10:48 | Emergency (ER) | payer MEDICAID, OTHER, SELFPAY ==
[2019-04-09 10:57] VITALS: BP 114/74; PULSE 98; RESP 18; TEMP 37.9; O2SAT 98; BMI 27.8
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
[2019-04-09] MEDS: SODIUM CHLORIDE 0.9% 1,000 ML 1000 ML IV ×2 (11:55→13:00)
[2019-04-09] MEDS: ONDANSETRON 4 MG/2 ML INJ IV (11:55)
[2019-04-09 12:03] LABS: Bacteria Urine Moderate (10-30); RBC Urine 0-1/HPF (0-5/HPF); Squamous Epithelial Cell Urine 10-30 /HPF (0-5/HPF); WBC Urine 1-5/HPF (0-5/HPF)
[2019-04-09 12:04] LABS: Culture Indicated Urine Cult Not Indicated
[2019-04-09 12:07] LABS: Add Manual Diff / Slide Review NO; Basophils Absolute Auto 0 /uL (0-100); Basophils Percent Auto 0.2 % (0-2); Eosinophils Absolute Auto 0 /uL (0-450); Eosinophils Percent Auto 0.3 % (2-4); Hematocrit 38.9 % (36-46); Hemoglobin 13.8 g/dL (12.0-16.0); Lymphocytes Absolute Auto 1500 /uL (1100-4500); Mean Corpuscular HGB Conc 35.5 % (30-36); Mean Corpuscular Hemoglobin 31.6 PG (26-34); Mean Corpuscular Volume 89.2 fL (80-100); Monocytes Absolute Auto 1000 /uL (0-900); Monocytes Percent Auto 9.5 % (3-14); Neutrophils Absolute Auto 8100 /uL (1500-7000); Platelet Count 301 X10^3/uL (150-400); Red Blood Cell Count 4.36 X10^6/uL (4.0-5.2); Red Cell Distribution Width 12.5 % (11.6-14.8); White Blood Cell Count 10.6 X10^3/uL (4.5-11.0)
[2019-04-09 12:23] LABS: Lactate (Lactic Acid) 0.6 mmol/L (0.7-2.1)
[2019-04-09 12:25] LABS: Alanine Aminotransferase 32 IU/L (<35); Albumin 4.4 g/dL (3.5-5.0); Albumin Globulin Ratio 1.3 (1.0-2.8); Alkaline Phosphatase 125 U/L (38-126); Amylase 49 U/L (30-110); Aspartate Aminotransferase 41 IU/L (14-36); BUN Creatinine Ratio 8.6 (6-22); Bilirubin Total 1.2 mg/dL (0.2-1.3); Blood Urea Nitrogen 6 mg/dL (7-17); Calcium 8.8 mg/dL (8.4-10.2); Carbon Dioxide 21 mmol/L (22-32); Chloride 108 mmol/L (98-107); Estimated Glomerular Filt Rate > 60.0 mL/min (>60); Globulin 3.3 g/dL (1.7-4.1); Glucose 102 mg/dL (70-100); HEMOLYSIS < 15 (0-50); Lipase 38 U/L (23-300); Potassium 3.3 mmol/L (3.4-5.1); Sodium 140 mmol/L (137-145); Total Protein 7.7 g/dL (6.3-8.2)
[2019-04-09 12:57] LABS: Procalcitonin 0.39 ng/mL (<0.5)
[2019-04-09 13:00] VITALS: BP 91/56; PULSE 82; O2SAT 99
[2019-04-09] MEDS: ACETAMINOPHEN 325 MG TABLET 975 MG PO (13:00)
[2019-04-09 13:09] LABS: Urine N gonorrhoeae NOT DETECTED
[2019-04-09 13:34] LABS: Influenza A and B by PCR Rapid Negative (Negative)
[2019-04-09 13:51] LABS: Urine Chlamydia NOT DETECTED
[2019-04-09 14:06] VITALS: BP 101/64; PULSE 75; RESP 16; O2SAT 98
[2019-04-09 14:29] LABS: Appearance Urine UA CLEAR; Bilirubin Urine UA NEGATIVE (NEGATIVE); Color Urine UA YELLOW; Glucose Urine UA NEGATIVE (Negative); Ketones Urine UA 1+ (NEGATIVE); Leukocyte Esterase Urine UA TRACE (NEGATIVE); Nitrite Urine UA NEGATIVE (Negative); Occult Blood Urine UA NEGATIVE (Negative); Protein Urine UA NEGATIVE (Negative); Specific Gravity Urine UA <=1.005 (1.000-1.035); Urobilinogen Urine UA 0.2 E.U./dL (0.2)
[2019-04-09 14:30] LABS: pH Urine UA 6.5 (4.5-8.0)
[2019-04-09 14:44] LABS: Bacteria Urine Moderate (10-30); RBC Urine 0-1/HPF (0-5/HPF); Squamous Epithelial Cell Urine 5-10 /HPF (0-5/HPF); WBC Urine 1-5/HPF (0-5/HPF)
[2019-04-09 14:47] LABS: Culture Indicated Urine Cult Not Indicated
[2019-04-09] MEDS: CIPROFLOXACIN 500 MG TABLET PO (15:03)
[2019-04-09 15:44] VITALS: BP 95/55; PULSE 75; RESP 16; O2SAT 97
== END 2019-04-09 15:44 | disposition home or self-care (01) ==
PROVIDERS: Emergency Provider Nurse Practitioner Family; PCP Physician Assistant
DX: N10 Acute pyelonephritis (principal)
CPT/HCPCS: 36415; 80053; 81001; 81003; 81015; 81025; 82150; 83605; 83690; 84145; 85025; 87040; 87086; 87491; 87502; 87591; 96361; 96374; 99283; 99284; J2405

== ENCOUNTER 2020-02-09 17:45 | Emergency (ER) | payer MEDICAID, OTHER, SELFPAY ==
[2020-02-09 17:50] VITALS: BP 123/80; PULSE 96; RESP 18; TEMP 37; O2SAT 97; BMI 31.8
--- NOTE | 2020-02-09 17:50 | DI.RAD.S_ITS ---
PROCEDURE: XR CHEST 1V INDICATIONS: chest pain TECHNIQUE: One view of the chest was acquired. COMPARISON: [facility], CR, XR CHEST 2V, 02/05/2018, 16:30. [facility], CR, XR CHEST 1V, 01/13/2018, 13:28. FINDINGS: Surgical changes and devices: None. Lungs and pleura: Prominent interstitial markings with a central predominance bilaterally. No pleural effusions or pneumothorax. Mediastinum: Mediastinal contours appear normal and unchanged. Heart size is normal. Bones and chest wall: No suspicious bony lesions. Overlying soft tissues appear unremarkable. IMPRESSION: Prominent interstitial markings with a central predominance bilaterally. This could be related to differences in technique. No overt fluid overload/CHF. Dictated by: Nicola Sanchez M.D. on 02/09/2020 at 18:11 Approved by: Nicola Sanchez M.D. on 02/09/2020 at 18:13
[2020-02-09 18:10] LABS: Add Manual Diff / Slide Review NO; Basophils Absolute Auto 100 /uL (0-100); Basophils Percent Auto 1.3 % (0-2); Eosinophils Absolute Auto 300 /uL (0-450); Eosinophils Percent Auto 3.1 % (2-4); Hemoglobin 15.2 g/dL (12.0-16.0); Lymphocytes Absolute Auto 2000 /uL (1100-4500); Lymphocytes Percent Auto 19.6 % (25-40); Mean Corpuscular HGB Conc 35.3 % (30-36); Mean Corpuscular Hemoglobin 32.9 PG (26-34); Mean Corpuscular Volume 93.1 fL (80-100); Monocytes Absolute Auto 600 /uL (0-900); Monocytes Percent Auto 6.3 % (3-14); Neutrophils Absolute Auto 7000 /uL (1500-7000); Neutrophils Percent Auto 69.7 % (50-75); Platelet Count 359 X10^3/uL (150-400); Red Blood Cell Count 4.61 X10^6/uL (4.0-5.2); Red Cell Distribution Width 13.2 % (11.6-14.8)
[2020-02-09 18:12] LABS: Prothrombin Time 11.5 SECONDS (10.1-12.7)
[2020-02-09 18:15] LABS: PTT Partial Thromboplastin Tim 31 SECONDS (26.4-36.2)
[2020-02-09 18:23] LABS: Alanine Aminotransferase 62 IU/L (<35); Albumin 4.5 g/dL (3.5-5.0); Albumin Globulin Ratio 1.3 (1.0-2.8); Alkaline Phosphatase 113 U/L (38-126); Aspartate Aminotransferase 61 IU/L (14-36); BUN Creatinine Ratio 15.6 (6-22); Bilirubin Total 0.6 mg/dL (0.2-1.3); Blood Urea Nitrogen 10 mg/dL (7-17); Calcium 9.1 mg/dL (8.4-10.2); Carbon Dioxide 25 mmol/L (22-32); Chloride 104 mmol/L (98-107); Creatine Kinase 71 U/L (30-135); Estimated Glomerular Filt Rate > 60.0 mL/min (>60); Globulin 3.5 g/dL (1.7-4.1); Glucose 114 mg/dL (70-100); HEMOLYSIS < 15 (0-50); Lipase 60 U/L (23-300); Potassium 3.3 mmol/L (3.4-5.1); Sodium 141 mmol/L (137-145)
[2020-02-09 18:34] LABS: Troponin I < 0.012 ng/mL (0.01-0.034)
--- NOTE | 2020-02-09 18:43 | ED.CHESTPAIN ---
HPI - Chest Pain General Chief Complaint: Chest Pain Stated Complaint: Chest pain Time Seen by Provider: 02/09/20 18:31 Source: patient Mode of arrival: EMS Limitations: no limitations History of Present Illness HPI narrative: 39-year-old female here for evaluation of chest discomfort that she describes is right in the center of the chest. Occurred several hours prior to arrival. Stated that she was watching movies at the time when it started. Does not know of any specific trauma. Has not had anything like this in the past. Not worse with breathing. She can reproduce the pain with palpation. Has not tried anything for the symptoms prior to arrival. Related Data Home Medications Medication Instructions Recorded Confirmed epinephrine [EpiPen 2-Ant] 0.3 mg SQ X1 PRN 01/13/18 05/06/19 ibuprofen 1 tab PO Q6H PRN 01/13/18 05/06/19 levothyroxine 137 mcg capsule 137 mcg PO DAILY 05/06/19 05/06/19 Previous Rx's Medication Instructions Recorded ondansetron 4 mg PO Q6H PRN #20 tab 04/09/19 Allergies Allergy/AdvReac Type Severity Reaction Status Date / Time shellfish derived Allergy Severe ALL Verified 05/06/19 10:40 SEAFOOD, POSS ANAPHYLXIS R/T EXPOSURE @ WORK iodine Allergy Mild CONTRAST - Verified 05/06/19 10:40 BODY GOES NUMB Review of Systems Constitutional Constitutional: Denies fever(s) Cardiovascular Cardiovascular: Reports chest pain and Denies dyspnea Respiratory Respiratory: Denies cough and Denies dyspnea Gastrointestinal Gastrointestinal: Denies abdominal pain, Denies nausea and Denies vomiting Genitourinary Genitourinary: Denies dysuria Genitourinary: Denies dysuria Musculoskeletal Musculoskeletal: Denies arthralgias and Denies myalgias Integumentary/Breasts Skin/Breast: Denies lesions and Denies rash Neurologic Neurologic: Denies behavioral changes Psychiatric Psychiatric: Denies anxiety and Denies behavioral changes Hematologic/Lymphatic Hematologic/Lymphatic: Denies easy bleeding and Denies easy bruising Allergic/Immunologic Allergic/Immunologic: Denies urticaria Patient History Medical History Hypothyroidism (Chronic) Surgical History History of cholecystectomy (Resolved) Status post delivery (02/02/13) Status post knee surgery Status post tubal ligation (06/17/16) Social History Smoking Status: Current every day smoker alcohol intake: never Smoking Status: Current every day smoker alcohol intake frequency: 0-2 drinks per day Substance Use Type: does not use Exam Initial Vital Signs Initial Vital Signs: Vital Signs Temperature 98.6 F 02/09/20 17:50 Pulse Rate 96 H 02/09/20 17:50 Respiratory Rate 18 02/09/20 17:50 Blood Pressure 123/80 02/09/20 17:50 Pulse Oximetry 97 02/09/20 17:50 Const General: cooperative and comfortable Limitations: mental status not altered HENMT Head: normal to inspection and normocephalic Chest Chest: No crepitus and tenderness (Over sternum) Resp Effort & Inspection: normal respiratory effort Auscultation: clear to auscultation bilaterally Cardio Rate: regular rate Rhythm: regular rhythm GI Inspection: non-distended Palpation: soft, No firm and No tender Skin Lesions: no lesions Rashes: no rashes Neuro General: patient alert and patient awake Cognition: normal cognition Speech: speech normal Extrem General: normal to inspection and capillary refill normal Psych Appearance: grossly normal and well kempt Course Orders Ordered: ED Orders 02/09/20 17:47 Complete Blood Count AUTO DIFF Stat Comprehensive Metabolic Panel Stat Lipase Stat Partial Thromboplastin Time Stat Prothrombin Time INR Stat Troponin & CK Cardiac Panel Stat 02/09/20 17:50 XR chest 1V Stat EKG-12 Lead Stat Vital Signs Vital signs: Vital Signs - 8 hr 02/09/20 17:50 Temperature 98.6 F Pulse Rate 96 H Respiratory Rate 18 Blood Pressure 123/80 Pulse Oximetry 97 MDM - Chest Pain Lab Data Attestation: I reviewed the patient's lab results. Result diagrams: 02/09/20 17:47 02/09/20 17:47 Labs: Lab Results 02/09/20 02/09/20 02/09/20 Range/Units 17:47 17:47 17:47 WBC 10.0 (4.5-11.0) X10^3/uL RBC 4.61 (4.0-5.2) X10^6/uL Hgb 15.2 (12.0-16.0) g/dL Hct 43.0 (36-46) % MCV 93.1 (80-100) fL MCH 32.9 (26-34) PG MCHC 35.3 (30-36) % RDW 13.2 (11.6-14.8) % Plt Count 359 (150-400) X10^3/uL Neut % (Auto) 69.7 (50-75) % Lymph % (Auto) 19.6 L (25-40) % [place] % (Auto) 6.3 (3-14) % Eos % (Auto) 3.1 (2-4) % Baso % (Auto) 1.3 (0-2) % Neut # (Auto) 7000 (1457-2686) /uL Lymph # (Auto) 2000 (5247-2261) /uL [place] # (Auto) 600 (0-900) /uL Eos # (Auto) 300 (0-450) /uL Baso # (Auto) 100 (0-100) /uL PT 11.5 (10.1-12.7) SECONDS INR 1.0 (0.9-1.3) APTT 31 (26.4-36.2) SECONDS Sodium 141 (137-145) mmol/L Potassium 3.3 L (3.4-5.1) mmol/L Chloride 104 (98-107) mmol/L Carbon Dioxide 25 (22-32) mmol/L BUN 10 (7-17) mg/dL Creatinine 0.64 (0.52-1.04) mg/dL Estimated GFR > 60.0 (>60) mL/min BUN/Creatinine Ratio 15.6 (6-22) Glucose 114 H (70-100) mg/dL Calcium 9.1 (8.4-10.2) mg/dL Total Bilirubin 0.6 (0.2-1.3) mg/dL AST 61 H (14-36) IU/L ALT 62 H (<35) IU/L Alkaline Phosphatase 113 (38-126) U/L Total Creatine Kinase 71 (30-135) U/L CK-MB (CK-2) TNP CK-MB (CK-2) Rel Index TNP Troponin I < 0.012 (0.01-0.034) ng/mL Total Protein 8.0 (6.3-8.2) g/dL Albumin 4.5 (3.5-5.0) g/dL Globulin 3.5 (1.7-4.1) g/dL Albumin/Globulin Ratio 1.3 (1.0-2.8) Lipase 60 (23-300) U/L Imaging Data Chest x-ray: Radiologist's Impression: [address] [address] XRay Report Signed Patient: Imelda Wilder JMR#: [id number] : 1980Acct:[id number] Age/Sex: 39 / FDate of Service: 02/09/20 Loc: ED Accession Number: [id number] Procedure: XR chest 1V Ordering Provider: Chelle Lovett MD PROCEDURE: XR CHEST 1V INDICATIONS: chest pain TECHNIQUE: One view of the chest was acquired. COMPARISON: [facility], CR, XR CHEST 2V, 02/05/2018, 16:30. [facility], CR, XR CHEST 1V, 01/13/2018, 13:28. FINDINGS: Surgical changes and devices: None. Lungs and pleura: Prominent interstitial markings with a central predominance bilaterally. No pleural effusions or pneumothorax. Mediastinum: Mediastinal contours appear normal and unchanged. Heart size is normal. Bones and chest wall: No suspicious bony lesions. Overlying soft tissues appear unremarkable. IMPRESSION: Prominent interstitial markings with a central predominance bilaterally. This could be related to differences in technique. No overt fluid overload/CHF. Dictated by: Nicola Sanchez M.D. on 02/09/2020 at 18:11 Approved by: Nicola Sanchez M.D. on 02/09/2020 at 18:13 ECG Data Attestation: I personally reviewed and interpreted this ECG as follows: Prior ECG tracings: not available for review Interpretation: Sinus tachycardia Ventricular rate 102 Normal QRS Normal QTC No ST T wave changes MDM Narrative Medical decision making narrative: Patient with clearly reproducible chest pain with palpation of the sternum. We discussed the possibility of costochondritis. Informed her that this could potentially happen if someone is stretching. After we discussed that she stated that stretching could have been when her symptoms started when she was on the couch. I have low suspicion for ACS. I feel we can hold on further workup for now. Patient was given return precautions and follow-up instructions. She expressed understanding and agreement. Discharge Plan Departure Patient Disposition: Home Clinical Impression: Acute chest wall pain Discharge Date/Time: 02/09/20 19:12 Instructions: DI for Costochondritis Activity Restrictions/Additional Instructions: You have no restrictions on your activities. Recommend that you start taking the anti-inflammatory which you can purchase [id number]. Return to the emergency department for any new or worsening symptoms Prescriptions: No Action levothyroxine 137 mcg capsule 137 mcg PO DAILY RF: 0 ibuprofen 400 mg tablet 1 tab PO Q6H PRN (Reason: Pain, Moderate) RF: 0 epinephrine [EpiPen 2-Ant] 0.3 MG/0.3 ML auto-injector 0.3 mg SQ X1 PRN (Reason: Allergic Reaction) RF: 0 ondansetron 4 mg tablet,disintegrating 4 mg PO Q6H PRN (Reason: nausea and vomiting) Qty: 20 RF: 0 Referrals: Chelsey Mccabe PA-C [Primary Care Provider] -
[2020-02-09 18:48] VITALS: BP 133/81; PULSE 90; RESP 26; O2SAT 97
== END 2020-02-09 19:12 | disposition home or self-care (01) ==
PROVIDERS: Emergency Medicine; Emergency Provider Emergency Medicine; PCP Physician Assistant
DX: R07.89 Other chest pain (principal)
CPT/HCPCS: 36415; 71045; 80053; 82550; 83690; 84484; 85025; 85610; 85730; 93005; 93010; 99283; 99284

== ENCOUNTER 2020-06-28 23:45 | Emergency (ER) | payer MEDICAID, OTHER, SELFPAY ==
[2020-06-28 23:50] VITALS: BP 133/81; PULSE 77; RESP 20; TEMP 36.6; O2SAT 99
[2020-06-29 00:24] LABS: Add Manual Diff / Slide Review NO; Basophils Absolute Auto 0 /uL (0-100); Basophils Percent Auto 0.3 % (0-2); Eosinophils Absolute Auto 500 /uL (0-450); Eosinophils Percent Auto 4.4 % (2-4); Hematocrit 40.9 % (36-46); Hemoglobin 14.4 g/dL (12.0-16.0); Lymphocytes Absolute Auto 2400 /uL (1100-4500); Lymphocytes Percent Auto 23.3 % (25-40); Mean Corpuscular HGB Conc 35.4 % (30-36); Mean Corpuscular Hemoglobin 32.8 PG (26-34); Mean Corpuscular Volume 92.7 fL (80-100); Monocytes Absolute Auto 1100 /uL (0-900); Monocytes Percent Auto 10.6 % (3-14); Neutrophils Absolute Auto 6400 /uL (1500-7000); Neutrophils Percent Auto 61.4 % (50-75); Platelet Count 318 X10^3/uL (150-400); Red Blood Cell Count 4.41 X10^6/uL (4.0-5.2); Red Cell Distribution Width 12.8 % (11.6-14.8); White Blood Cell Count 10.4 X10^3/uL (4.5-11.0)
[2020-06-29 00:25] LABS: Prothrombin Time 11.5 SECONDS (10.1-12.7)
[2020-06-29 00:28] LABS: PTT Partial Thromboplastin Tim 34 SECONDS (26.4-36.2)
[2020-06-29 00:28] LABS: RBC Urine None Seen (0-5/HPF)
[2020-06-29 00:29] LABS: Alanine Aminotransferase 58 IU/L (<35); Albumin 4.1 g/dL (3.5-5.0); Albumin Globulin Ratio 1.3 (1.0-2.8); Alkaline Phosphatase 87 U/L (38-126); Aspartate Aminotransferase 41 IU/L (14-36); BUN Creatinine Ratio 17.1 (6-22); Bilirubin Total 0.3 mg/dL (0.2-1.3); Blood Urea Nitrogen 14 mg/dL (7-17); Calcium 9.2 mg/dL (8.4-10.2); Carbon Dioxide 26 mmol/L (22-32); Chloride 106 mmol/L (98-107); Estimated Glomerular Filt Rate > 60.0 mL/min (>60); Globulin 3.2 g/dL (1.7-4.1); Glucose 106 mg/dL (70-100); HEMOLYSIS < 15 (0-50); Lipase 109 U/L (23-300); Potassium 3.7 mmol/L (3.4-5.1); Sodium 139 mmol/L (137-145); Total Protein 7.3 g/dL (6.3-8.2)
[2020-06-29 00:47] LABS: Bacteria Urine Many (>30); Culture Indicated Urine Specimen Cultured; Squamous Epithelial Cell Urine 1-5 /HPF (0-5/HPF); WBC Urine 0-1/HPF (0-5/HPF)
--- NOTE | 2020-06-29 00:51 | ED_ITS ---
HPI - Abdominal Pain General Chief Complaint: Abdominal Pain Stated Complaint: Fever, stomach pain, vomiting Time Seen by Provider: 06/29/20 00:01 Source: patient and family Mode of arrival: Ambulatory History of Present Illness HPI narrative: Patient here with . Complains 5 days of left lower quadrant pain/pelvic pain. Has had fever nausea vomiting diarrhea. No urinary complaints. No vaginal discharge or any complaints. Pain is sharp, non radiating. No hematuria. Related Data Home Medications Medication Instructions Recorded Confirmed epinephrine [EpiPen 2-Ant] 0.3 mg SQ X1 PRN 01/13/18 05/06/19 ibuprofen 1 tab PO Q6H PRN 01/13/18 05/06/19 levothyroxine 137 mcg capsule 137 mcg PO DAILY 05/06/19 05/06/19 Previous Rx's Medication Instructions Recorded ondansetron 4 mg PO Q6H PRN #20 tab 04/09/19 nitrofurantoin macrocrystal 100 mg PO BID #10 cap 06/29/20 ondansetron 4 mg PO Q8H PRN #10 tab 06/29/20 Allergies Allergy/AdvReac Type Severity Reaction Status Date / Time Iodinated Contrast Media Allergy Severe Anaphylaxis Verified 06/29/20 01:20 shellfish derived Allergy Severe ALL Verified 05/06/19 10:40 SEAFOOD, POSS ANAPHYLXIS R/T EXPOSURE @ WORK iodine Allergy Mild CONTRAST - Verified 05/06/19 10:40 BODY GOES NUMB Review of Systems Review of Systems Narrative: GENERAL: Denies chills, fatigue, malaise, complains of fever, denies sweats. HEENT: Denies sinus pain, ear pain, sore throat RESPIRATORY: Denies dyspnea, cough CARDIOVASCULAR: Denies chest pain, palpitations GASTROINTESTINAL: Complains nausea, vomiting, abdominal pain, diarrhea : Denies dysuria, frequency, hematuria MUSCULOSKELETAL: denies muscle or bony pain SKIN: Denies rash, skin lesions NEUROLOGIC: Denies weakness, numbness ROS Unobtainable: All systems reviewed & are unremarkable except as noted in HPI and below Patient History Medical History (Updated 06/29/20 @ 02:39 by Neal Johnson MD) Hypothyroidism Surgical History History of cholecystectomy Status post delivery (02/02/13) Status post knee surgery Status post tubal ligation (06/17/16) Social History Smoking Status: Current every day smoker alcohol intake: never Smoking Status: Current every day smoker alcohol intake frequency: 0-2 drinks per day Substance Use Type: does not use Exam Narrative Exam Narrative: GENERAL: in no distress, not toxic not dyspneic HEAD: Normocephalic. EYES: Pupils equal round No scleral icterus. No injection no discharge ENT: Mucous membranes moist. NECK: Trachea midline. CARDIOVASCULAR: Regular rate and rhythm without murmurs RESPIRATORY: Clear to auscultation. Breath sounds equal bilaterally. No wheezes, rales, or rhonchi. GASTROINTESTINAL: Abdomen soft, reproducible left lower quadrant tenderness, no peritoneal signs, bowel sounds present. EXTREMITIES: No gross deformities. BACK: No flank tenderness. NEURO: AOx4. SKIN: Warm and dry PSYCH: Not anxious, is cooperative Initial Vital Signs Initial Vital Signs: Vital Signs Temperature 97.9 F 06/28/20 23:50 Pulse Rate 77 06/28/20 23:50 Respiratory Rate 20 06/28/20 23:50 Blood Pressure 133/81 06/28/20 23:50 Pulse Oximetry 99 06/28/20 23:50 Course Course Course Narrative: No new issues during course of stay Orders Ordered: ED Orders 06/28/20 23:54 EKG-12 Lead Stat 06/28/20 23:59 Complete Blood Count AUTO DIFF Stat Comprehensive Metabolic Panel Stat Lipase Stat Partial Thromboplastin Time Stat Prothrombin Time INR Stat 06/29/20 00:20 Urine Culture Stat Urine Microscopic Stat 06/29/20 01:21 CT abdomen pelvis wo con Stat Discontinued Medications Hydrocodone Bitart/Acetaminophen (Hydrocodone/Acet 5/325 Prepack) 1 bottle MISC SEEINSTR ONE Stop: 06/29/20 02:38 Last Admin: 06/29/20 03:08 Dose: 1 bottle Documented by: LALA Sodium Chloride (Normal Saline 0.9%) 1,000 mls @ 1,000 mls/hr IV BOLUS ONE Stop: 06/29/20 01:49 Last Infusion: 06/29/20 02:04 Dose: 0 mls/hr Documented by: Admin: 06/29/20 00:56 Dose: 1,000 mls/hr Documented by: AMRIT Morphine Sulfate (Morphine 4 Mg/Ml Inj) 4 mg IV NOW ONE Stop: 06/29/20 00:51 Last Admin: 06/29/20 00:56 Dose: 4 mg Documented by: AMRIT Nitrofurantoin Macrocrystals (Nitrofurantoin Er 100 Mg Capsule) 100 mg PO NOW ONE Stop: 06/29/20 02:38 Last Admin: 06/29/20 03:08 Dose: 100 mg Documented by: LALA Ondansetron HCl (Ondansetron 4 Mg/2 Ml Inj) 4 mg IV NOW ONE Stop: 06/29/20 00:51 Last Admin: 06/29/20 00:56 Dose: 4 mg Documented by: AMRIT Reevaluation(s) Reevaluation #1: Pain is controlled. Reviewed results with patient and . Patient declined/did not want pelvic exam. Agrees for treatment for UTI Time: 02:36 Vital Signs Vital signs: Vital Signs - 8 hr 06/28/20 23:50 06/29/20 01:09 06/29/20 01:10 Temperature 97.9 F Pulse Rate 77 67 60 Respiratory Rate 20 Blood Pressure 133/81 123/59 L Pulse Oximetry 99 98 97 06/29/20 01:30 06/29/20 02:00 06/29/20 02:30 Temperature Pulse Rate 62 67 64 Respiratory Rate Blood Pressure 128/75 Pulse Oximetry 97 98 97 MDM - Abdominal Pain Differential Diagnosis Differential diagnosis: Likely abdominal pain, acute appendicitis, calculus of kidney, diverticulitis and small bowel obstruction Lab Data Attestation: I reviewed the patient's lab results. Result diagrams: 06/28/20 23:59 06/28/20 23:59 Labs: Lab Results 06/28/20 06/28/20 06/28/20 Range/Units 23:59 23:59 23:59 WBC 10.4 (4.5-11.0) X10^3/uL RBC 4.41 (4.0-5.2) X10^6/uL Hgb 14.4 (12.0-16.0) g/dL Hct 40.9 (36-46) % MCV 92.7 (80-100) fL MCH 32.8 (26-34) PG MCHC 35.4 (30-36) % RDW 12.8 (11.6-14.8) % Plt Count 318 (150-400) X10^3/uL Neut % (Auto) 61.4 (50-75) % Lymph % (Auto) 23.3 L (25-40) % [place] % (Auto) 10.6 (3-14) % Eos % (Auto) 4.4 H (2-4) % Baso % (Auto) 0.3 (0-2) % Neut # (Auto) 6400 (2529-9029) /uL Lymph # (Auto) 2400 (8859-2634) /uL [place] # (Auto) 1100 H (0-900) /uL Eos # (Auto) 500 H (0-450) /uL Baso # (Auto) 0 (0-100) /uL PT 11.5 (10.1-12.7) SECONDS INR 1.0 (0.9-1.3) APTT 34 (26.4-36.2) SECONDS Sodium 139 (137-145) mmol/L Potassium 3.7 (3.4-5.1) mmol/L Chloride 106 (98-107) mmol/L Carbon Dioxide 26 (22-32) mmol/L BUN 14 (7-17) mg/dL Creatinine 0.82 (0.52-1.04) mg/dL Estimated GFR > 60.0 (>60) mL/min BUN/Creatinine Ratio 17.1 (6-22) Glucose 106 H (70-100) mg/dL Calcium 9.2 (8.4-10.2) mg/dL Total Bilirubin 0.3 (0.2-1.3) mg/dL AST 41 H (14-36) IU/L ALT 58 H (<35) IU/L Alkaline Phosphatase 87 (38-126) U/L Total Protein 7.3 (6.3-8.2) g/dL Albumin 4.1 (3.5-5.0) g/dL Globulin 3.2 (1.7-4.1) g/dL Albumin/Globulin Ratio 1.3 (1.0-2.8) Lipase 109 (23-300) U/L Urine RBC (0-5/HPF) Urine WBC (0-5/HPF) Ur Squamous Epith Cells (0-5/HPF) Urine Bacteria (None) Ur Culture Indicated? 06/29/20 Range/Units 00:20 WBC (4.5-11.0) X10^3/uL RBC (4.0-5.2) X10^6/uL Hgb (12.0-16.0) g/dL Hct (36-46) % MCV (80-100) fL MCH (26-34) PG MCHC (30-36) % RDW (11.6-14.8) % Plt Count (150-400) X10^3/uL Neut % (Auto) (50-75) % Lymph % (Auto) (25-40) % [place] % (Auto) (3-14) % Eos % (Auto) (2-4) % Baso % (Auto) (0-2) % Neut # (Auto) (0399-1396) /uL Lymph # (Auto) (7616-3072) /uL [place] # (Auto) (0-900) /uL Eos # (Auto) (0-450) /uL Baso # (Auto) (0-100) /uL PT (10.1-12.7) SECONDS INR (0.9-1.3) APTT (26.4-36.2) SECONDS Sodium (137-145) mmol/L Potassium (3.4-5.1) mmol/L Chloride (98-107) mmol/L Carbon Dioxide (22-32) mmol/L BUN (7-17) mg/dL Creatinine (0.52-1.04) mg/dL Estimated GFR (>60) mL/min BUN/Creatinine Ratio (6-22) Glucose (70-100) mg/dL Calcium (8.4-10.2) mg/dL Total Bilirubin (0.2-1.3) mg/dL AST (14-36) IU/L ALT (<35) IU/L Alkaline Phosphatase (38-126) U/L Total Protein (6.3-8.2) g/dL Albumin (3.5-5.0) g/dL Globulin (1.7-4.1) g/dL Albumin/Globulin Ratio (1.0-2.8) Lipase (23-300) U/L Urine RBC None seen (0-5/HPF) Urine WBC 0-1/hpf (0-5/HPF) Ur Squamous Epith Cells 1-5 /hpf (0-5/HPF) Urine Bacteria Many (>30) H (None) Ur Culture Indicated? Specimen cultured Point of care testing: Point of Care Testing Test Results Negative Urine Dip Bedside Urine Glucose Negative Bedside Urine Bilirubin - Negative Bedside Urine Ketone - Negative Urine Specific [place] 1.030 Bedside Urine Occult Blood - Negative Bedside Urine pH 6 Bedside Urine Protein - Negative Bedside Urine Urobilinogen - Negative Bedside Urine Nitrite + Positive Bedside Urine Leukocytes - Negative Esterase Imaging Data CT scan - abdomen/pelvis: Radiologist's Impression: Impression no acute abnormality identified ECG Data Attestation: I personally reviewed and interpreted this ECG as follows: Interpretation: Normal sinus rhythm, normal EKG, ventricular rate 70, no ST elevation or depression MDM Narrative Medical decision making narrative: Appropriate for discharge home. No fever here. Normal white cell count. Pain and nausea controlled. Will treat for UTI clinically. Urinalysis noted. Discharge Plan Departure Patient Disposition: Home Clinical Impression: Pelvic pain Instructions: DI for Urinary Tract Infection (UTI), DI for Pelvic Pain Activity Restrictions/Additional Instructions: Return if worse or if any questions or concerns. No driving or operating machinery this morning. Return if worse or for any questions. See family doctor this week for recheck. Keep well hydrated Prescriptions: New nitrofurantoin macrocrystal 100 mg capsule 100 mg PO BID Qty: 10 RF: 0 ondansetron 4 mg tablet,disintegrating 4 mg PO Q8H PRN (Reason: nausea and vomiting) Qty: 10 RF: 0 No Action levothyroxine 137 mcg capsule 137 mcg PO DAILY RF: 0 ibuprofen 400 mg tablet 1 tab PO Q6H PRN (Reason: Pain, Moderate) RF: 0 epinephrine [EpiPen 2-Ant] 0.3 MG/0.3 ML auto-injector 0.3 mg SQ X1 PRN (Reason: Allergic Reaction) RF: 0 ondansetron 4 mg tablet,disintegrating 4 mg PO Q6H PRN (Reason: nausea and vomiting) Qty: 20 RF: 0 Referrals: Chelsey Mccabe PA-C [Primary Care Provider] -
[2020-06-29] MEDS: SODIUM CHLORIDE 0.9% 1,000 ML 1000 ML IV (00:56)
[2020-06-29] MEDS: ONDANSETRON 4 MG/2 ML INJ IV (00:56)
[2020-06-29] MEDS: MORPHINE 4 MG/ML INJ IV (00:56)
[2020-06-29 01:09] VITALS: PULSE 67; O2SAT 98
[2020-06-29 01:10] VITALS: BP 123/59; PULSE 60; O2SAT 97
--- NOTE | 2020-06-29 01:21 | DI.CT.S_ITS ---
PROCEDURE: CT ABDOMEN PELVIS WO CON INDICATIONS: Left-sided abdominal pain TECHNIQUE: Noncontrast 5 mm thick sections acquired from the diaphragms to the symphysis. 5 mm coronal and sagittal reformats were then performed. For radiation dose reduction, the following was used: automated exposure control, adjustment of mA and/or kV according to patient size. COMPARISON: [facility], CT, ABDOMEN WITH CONTRAST, 06/19/2009, 11:25. [facility], US, US PELVIC COMPLETE, 10/12/2018, 10:11. [facility], CT, CT ABDOMEN PELVIS WO CON, 05/07/2018, 21:00. FINDINGS: Image quality: Excellent. ABDOMEN: Lung bases: Lung bases are clear. Heart size is normal. Tiny hiatal hernia. Solid organs: There is hepatic steatosis. Liver is normal in size. Gallbladder is absent. Pancreas is normal in contours. Spleen is normal in size. No adrenal nodules. Kidneys are normal in size, without hydronephrosis or nephrolithiasis. There is faint radiological contrast in the renal pelvis. Peritoneum and bowel: Unenhanced bowel loops demonstrate normal wall thickness and caliber. No free fluid or air. Nodes and vessels: No retroperitoneal or mesenteric adenopathy by size criteria. Aorta and inferior vena cava are normal in caliber. Miscellaneous: No ventral hernias. PELVIS: Genitourinary: Lucencies in the lower uterine segment/cervix are compatible with nabothian cysts. Bladder wall thickness is normal. Excreted radiological contrast is noted in urinary bladder, presumably from prior outside contrast enhanced imaging. Miscellaneous: No inguinal hernias or adenopathy. Bones: No suspicious bony lesions. No vertebral body compression fractures. IMPRESSION: 1. No acute inflammatory process in abdomen or pelvis. 2. Hepatic steatosis. No significant discrepancy with the shift manager radiology preliminary report. Dictated by: Rain Quintero M.D. on 06/29/2020 at 8:15 Approved by: Rain Quintero M.D. on 06/29/2020 at 8:21
[2020-06-29 01:30] VITALS: BP 128/75; PULSE 62; O2SAT 97
[2020-06-29 02:00] VITALS: PULSE 67; O2SAT 98
[2020-06-29 02:30] VITALS: PULSE 64; O2SAT 97
[2020-06-29] MEDS: HYDROCODONE/ACET 5/325 PREPACK 1 BOTTLE MISC (03:08)
[2020-06-29] MEDS: NITROFURANTOIN ER 100 MG CAPSULE PO (03:08)
== END 2020-06-29 03:16 | disposition home or self-care (01) ==
PROVIDERS: Emergency Provider Emergency Medicine; PCP Physician Assistant
DX: R10.2 Pelvic and perineal pain (principal); R50.9 Fever, unspecified; R11.2 Nausea with vomiting, unspecified; R19.7 Diarrhea, unspecified
CPT/HCPCS: 36415; 74176; 80053; 81003; 81015; 81025; 83690; 85025; 85610; 85730; 87077; 87086; 87186; 93005; 96361; 96374; 96375; 99281; 99284; J2270; J2405

== ENCOUNTER 2020-07-11 06:50 | Emergency (ER) | payer MEDICAID, OTHER, SELFPAY ==
[2020-07-11 07:00] VITALS: BP 134/88; PULSE 87; RESP 16; TEMP 36.9; O2SAT 97; BMI 30.9
--- NOTE | 2020-07-11 07:49 | DI.US.S_ITS ---
PROCEDURE: US PELVIC COMPLETE INDICATIONS: HEAVY VAGINAL BLEEDING FOR 2 DAY TECHNIQUE: Real-time scanning was performed of the pelvic organs, with image documentation. Additional endovaginal scanning was necessary due to incomplete visualization of the adnexal and endometrial structures by transabdominal scanning. COMPARISON: Pelvic ultrasound, 10/12/2018. CT abdomen pelvis 06/29/2020. FINDINGS: Transabdominal scanning: No pathologic free fluid can be seen. Endovaginal scanning: Uterus: The uterus demonstrates normal size at 9.6 x 4.9 x 4.6 cm. The endometrial stripe measures 6 mm. Incidental note is made of nabothian cysts, including complex nabothian cysts. Hypoechoic uterine lesions are seen, which are attributed to fibroids. They measure as follows: Left anterior uterus, intramural, 1.7 x 1.9 x 2 cm Left anterior uterus, subserosal at the fundus, 1.8 x 1.4 x 1.4 cm Ovaries: Neither ovary can be seen. No adnexal masses are seen on either side. Impression: No significant abnormality is seen to explain the patient's presenting history. Incidental note is made of: Uterine fibroids Nabothian cysts Note: Case discussed by telephone with Dr. Schmitz at 8:10 a.m. [place] time on July 11, 2020. Dictated by: Miguel Wilson M.D. /2020 at 8:03 Approved by: Miguel Wilson M.D. 8:05 07/11/2020
--- NOTE | 2020-07-11 07:50 | ED_ITS ---
HPI - Female Genitourinary General Chief complaint: Urogenital-Female Stated complaint: changing tampon every two hours Time Seen by Provider: 07/11/20 07:27 Source: patient Mode of arrival: Ambulatory Limitations: no limitations History of Present Illness HPI Narrative: This is a 39-year-old female comes to the emergency department with complaint of vaginal bleeding. Patient states she has had irregular periods with varying levels of vaginal bleeding in the past 3 years since having her tubal ligation. She is having some cramping in the lower abdomen and back. No fevers. She has had some mild nausea. Occasionally lightheaded, no passing out. No chest pain or shortness of breath. Patient has not had any vomiting. No diarrhea or constipation. She had a bladder infection a month or 2 ago but is not having any frequency dysuria urgency. She states there is even a little tingling in the vaginal area which she states is what it felt like when she had a baby before. Patient states that she most recently started her menses yesterday, she had a large amount of bleeding and continues to go through a super tampon every hour and a half. She does have a history of hypothyroidism. She has had cholecystectomy and tubal ligation. She denies other surgeries. Denies allergies to medications. She has not taking any pain medication for her symptoms. Patient does have an iodine allergy. 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 Patient is also anxious her partner is having a colonscopy this morning here at the hospital. Patient states she is her partners ride today. Related Data Home Medications Medication Instructions Recorded Confirmed epinephrine [EpiPen 2-Ant] 0.3 mg SQ X1 PRN 01/13/18 05/06/19 ibuprofen 1 tab PO Q6H PRN 01/13/18 05/06/19 levothyroxine 137 mcg capsule 137 mcg PO DAILY 05/06/19 05/06/19 Previous Rx's Medication Instructions Recorded ondansetron 4 mg PO Q6H PRN #20 tab 04/09/19 nitrofurantoin macrocrystal 100 mg PO BID #10 cap 06/29/20 ondansetron 4 mg PO Q8H PRN #10 tab 06/29/20 Allergies Allergy/AdvReac Type Severity Reaction Status Date / Time Iodinated Contrast Media Allergy Severe Anaphylaxis Verified 06/29/20 01:20 shellfish derived Allergy Severe ALL Verified 05/06/19 10:40 SEAFOOD, POSS ANAPHYLXIS R/T EXPOSURE @ WORK iodine Allergy Mild CONTRAST - Verified 05/06/19 10:40 BODY GOES NUMB Review of Systems Review of Systems ROS Unobtainable: All systems reviewed & are unremarkable except as noted in HPI and below Patient History Medical History (Updated 07/11/20 @ 08:12 by Tesha Schmitz DO) Hypothyroidism Surgical History History of cholecystectomy Status post delivery (02/02/13) Status post knee surgery Status post tubal ligation (06/17/16) alcohol intake frequency: 0-2 drinks per day Substance Use Type: does not use Exam Narrative Exam Narrative: GENERAL: Alert and oriented x three, well nourished, well appearing female. Patient appears anxious. HEENT: Head normocephalic, atraumatic, EOMI, pupils reactive, face symmetric, moist mucous membranes NECK: Supple, full range of motion CARDIOVASCULAR: Regular rate and rhythm without murmurs, rubs or gallops. RESPIRATORY: Breath sounds equal bilaterally, no wheezes rales or rhonchi. ABDOMEN: Soft, nontender. Normoactive bowel sounds all 4 quadrants. No guarding or rebound, rigidity, no mass : No CVA tenderness Female: externa vaginal exam is normal, mild vaginal bleeding, small clot in vaginal canal, no discharge, no cervical motion tenderness, otherwise normal speculum exam, no adnexal tenderness/mass. Bimanual exam is normal, no enlarged or tender uterus. Non-gravid. Dinorah Lowry was appointment manager. EXTREMITIES: Normal range of motion, no clubbing or edema. Neurovascularly intact NEUROLOGICAL: Cranial nerves II through XII grossly intact. Moving all extremities SKIN: Warm, dry, no petechiae, no rashes or lesions. 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 Her thyroid has not returned but the rest of her labs are and have been reviewed. As well as her ultrasound findings. Discussed that she needs to follow up with manager client support for repeat pelvic and Pap although her pelvic exam today was not alarming it is not a full evaluation. We also discussed that her thyroid may be playing a part and she needs to follow up with these results. She continue with Tylenol and ibuprofen. Patient is ambulating without any issue department, her hemoglobin is stable and her LFTs are slightly elevated and we discussed needs to follow-up but is unlikely cause for her bleeding today. Time: 09:37 Vital Signs Vital signs: Vital Signs - 8 hr 07/11/20 07:00 Temperature 98.5 F Pulse Rate 87 Respiratory Rate 16 Blood Pressure 134/88 Pulse Oximetry 97 MDM - Female Genitourinary Lab Data Attestation: I reviewed the patient's lab results. Result diagrams: 07/11/20 08:56 07/11/20 08:56 Labs: Lab Results 07/11/20 Range/Units 08:56 WBC 8.4 (4.5-11.0) X10^3/uL RBC 4.71 (4.0-5.2) X10^6/uL Hgb 15.5 (12.0-16.0) g/dL Hct 43.8 (36-46) % MCV 93.0 (80-100) fL MCH 32.9 (26-34) PG MCHC 35.4 (30-36) % RDW 12.4 (11.6-14.8) % Plt Count 339 (150-400) X10^3/uL Neut % (Auto) 70.9 (50-75) % Lymph % (Auto) 18.4 L (25-40) % [place] % (Auto) 6.7 (3-14) % Eos % (Auto) 3.5 (2-4) % Baso % (Auto) 0.5 (0-2) % Neut # (Auto) 6000 (3452-9850) /uL Lymph # (Auto) 1500 (4732-3007) /uL [place] # (Auto) 600 (0-900) /uL Eos # (Auto) 300 (0-450) /uL Baso # (Auto) 0 (0-100) /uL Point of Care Testing Test Results Negative Urine Dip Bedside Urine Glucose Negative Bedside Urine Bilirubin - Negative Bedside Urine Ketone - Negative Urine Specific [place] 1.005 Bedside Urine Occult Blood +++ Bedside Urine pH 6.0 Bedside Urine Protein - Negative Bedside Urine Urobilinogen - Negative Bedside Urine Nitrite - Negative Bedside Urine Leukocytes - Negative Esterase Imaging Data US - [facility]: My Impression: prelim from tech-fibroids, no ovaries visualized secondary to bowel gas. no other acute findings noted. Dr. Wilson called with results and states fibroids are not submucousal and seem less likely to be source of menorrhagia and may have alternate cause. MDM Narrative Medical decision making narrative: Menorrhagia in the setting of a positive Pap smear for ascus in 2019, ultrasound shows fibroid but less likely causes is not submucosal. Labs reviewed although thyroid pending patient had to leave. Discussed plan for follow-up with [facility] with per prior providers partners who will have access to our records as well as their own. Discharge Plan Departure Patient Disposition: Home Clinical Impression: History of abnormal cervical Pap smear Menorrhagia Qualifiers: Menorrhagia type: with irregular cycle Qualified Code(s): N92.1 - Excessive and frequent menstruation with irregular cycle Instructions: DI for Menorrhagia Activity Restrictions/Additional Instructions: Follow up with [facility] for recheck and to have a repeat pap smear since you had a positive pap in April of 2019. Call to set up an appointment. Your thyroid level is still pending. Follow up with your physician for the results. Your liver enzymes are mildly elevated and you should follow up for these. Dr. Mckeon has retired and you can follow up with any of his partners. Your ultrasound does show fibroids but this is not necessarily the cause of your bleeding. Continue your home medications as prescribed. Return to ER for fevers greater 100.4 F, worsening lightheadedness or passing out, new chest pain or shortness of breath, rapidly worsening bleeding, persistent vomiting or other new or concerning symptoms. Prescriptions: No Action levothyroxine 137 mcg capsule 137 mcg PO DAILY RF: 0 ibuprofen 400 mg tablet 1 tab PO Q6H PRN (Reason: Pain, Moderate) RF: 0 epinephrine [EpiPen 2-Ant] 0.3 MG/0.3 ML auto-injector 0.3 mg SQ X1 PRN (Reason: Allergic Reaction) RF: 0 ondansetron 4 mg tablet,disintegrating 4 mg PO Q6H PRN (Reason: nausea and vomiting) Qty: 20 RF: 0 nitrofurantoin macrocrystal 100 mg capsule 100 mg PO BID Qty: 10 RF: 0 ondansetron 4 mg tablet,disintegrating 4 mg PO Q8H PRN (Reason: nausea and vomiting) Qty: 10 RF: 0 Referrals: Aviva Escobedo MD [Physician] - Chelsey Mccabe PA-C [Primary Care Provider] -
--- NOTE | 2020-07-11 08:19 | PC.NURSE ---
reports changing tampon every two hours
[2020-07-11] MEDS: IBUPROFEN 400 MG TABLET 800 MG PO (08:46)
[2020-07-11 09:11] LABS: Add Manual Diff / Slide Review NO; Basophils Absolute Auto 0 /uL (0-100); Basophils Percent Auto 0.5 % (0-2); Eosinophils Absolute Auto 300 /uL (0-450); Eosinophils Percent Auto 3.5 % (2-4); Hematocrit 43.8 % (36-46); Hemoglobin 15.5 g/dL (12.0-16.0); Lymphocytes Absolute Auto 1500 /uL (1100-4500); Lymphocytes Percent Auto 18.4 % (25-40); Mean Corpuscular HGB Conc 35.4 % (30-36); Mean Corpuscular Hemoglobin 32.9 PG (26-34); Monocytes Absolute Auto 600 /uL (0-900); Monocytes Percent Auto 6.7 % (3-14); Neutrophils Absolute Auto 6000 /uL (1500-7000); Neutrophils Percent Auto 70.9 % (50-75); Platelet Count 339 X10^3/uL (150-400); Red Blood Cell Count 4.71 X10^6/uL (4.0-5.2); Red Cell Distribution Width 12.4 % (11.6-14.8); White Blood Cell Count 8.4 X10^3/uL (4.5-11.0)
[2020-07-11 09:30] LABS: Alanine Aminotransferase 50 IU/L (<35); Albumin 4.5 g/dL (3.5-5.0); Albumin Globulin Ratio 1.2 (1.0-2.8); Alkaline Phosphatase 114 U/L (38-126); Aspartate Aminotransferase 42 IU/L (14-36); BUN Creatinine Ratio 9.7 (6-22); Bilirubin Total 0.4 mg/dL (0.2-1.3); Blood Urea Nitrogen 6 mg/dL (7-17); Calcium 8.9 mg/dL (8.4-10.2); Carbon Dioxide 28 mmol/L (22-32); Chloride 106 mmol/L (98-107); Estimated Glomerular Filt Rate > 60.0 mL/min (>60); Globulin 3.7 g/dL (1.7-4.1); Glucose 101 mg/dL (70-100); HEMOLYSIS < 15 (0-50); Potassium 3.7 mmol/L (3.4-5.1); Sodium 139 mmol/L (137-145); Total Protein 8.2 g/dL (6.3-8.2)
[2020-07-11 09:58] LABS: Thyroid Stimulating Hormone 0.301 uIU/mL (0.47-4.68)
== END 2020-07-11 09:38 | disposition home or self-care (01) ==
PROVIDERS: Emergency Provider Emergency Medicine; PCP Physician Assistant
DX: N92.1 Excessive and frequent menstruation with irregular cycle (principal); Z87.42 Personal history of other diseases of the female genital tract; R11.0 Nausea; E03.9 Hypothyroidism, unspecified
CPT/HCPCS: 76830; 76856; 80053; 81003; 81025; 84443; 85025; 99281; 99284

== ENCOUNTER → 2020-08-14 14:37 | Outpatient (CLI) | payer MEDICAID, SELFPAY ==
[2020-08-14 14:57] LABS: Add Manual Diff / Slide Review NO; Basophils Absolute Auto 100 /uL (0-100); Basophils Percent Auto 0.8 % (0-2); Eosinophils Absolute Auto 500 /uL (0-450); Eosinophils Percent Auto 5.4 % (2-4); Hematocrit 43.7 % (36-46); Hemoglobin 15.1 g/dL (12.0-16.0); Lymphocytes Absolute Auto 1900 /uL (1100-4500); Lymphocytes Percent Auto 20.7 % (25-40); Mean Corpuscular HGB Conc 34.5 % (30-36); Mean Corpuscular Hemoglobin 32.4 PG (26-34); Mean Corpuscular Volume 93.9 fL (80-100); Monocytes Absolute Auto 800 /uL (0-900); Monocytes Percent Auto 8.5 % (3-14); Neutrophils Absolute Auto 5800 /uL (1500-7000); Neutrophils Percent Auto 64.6 % (50-75); Platelet Count 396 X10^3/uL (150-400); Red Blood Cell Count 4.65 X10^6/uL (4.0-5.2)
[2020-08-14 15:15] LABS: Alanine Aminotransferase 43 IU/L (<35); Albumin 4.5 g/dL (3.5-5.0); Albumin Globulin Ratio 1.4 (1.0-2.8); Alkaline Phosphatase 108 U/L (38-126); Aspartate Aminotransferase 41 IU/L (14-36); BUN Creatinine Ratio 13.8 (6-22); Bilirubin Total 0.3 mg/dL (0.2-1.3); Blood Urea Nitrogen 8 mg/dL (7-17); Carbon Dioxide 23 mmol/L (22-32); Chloride 107 mmol/L (98-107); Cholesterol 163 mg/dL (140-199); Estimated Glomerular Filt Rate > 60.0 mL/min (>60); Globulin 3.2 g/dL (1.7-4.1); Glucose 112 mg/dL (70-100); HDL Cholesterol 42 mg/dL (40-60); HEMOLYSIS < 15 (0-50); LDL Cholesterol Calculated 93 mg/dL (<100); Sodium 139 mmol/L (137-145); Total Protein 7.7 g/dL (6.3-8.2); Triglycerides 138 mg/dL (35-150)
[2020-08-14 15:16] LABS: Hemoglobin A1C% w Est Avg Glu 5.1 % (4.0-6.0)
[2020-08-14 16:00] LABS: Vitamin B12 Reflex MMA if <400 361 pg/mL (239-931)
[2020-08-14 16:18] LABS: TSH w/ Reflex to FT4 0.58 uIU/mL (0.47-4.68)
[2020-08-16 00:07] LABS: Methylmalonic Acid,Serum 84 nmol/L (0-378)
== END ==
PROVIDERS: PCP Family Medicine; Referring Provider Family Medicine; Visit Provider Family Medicine
DX: N93.8 Other specified abnormal uterine and vaginal bleeding (principal); R53.83 Other fatigue; Z83.3 Family history of diabetes mellitus
CPT/HCPCS: 36415; 80053; 80061; 82607; 83036; 83921; 84443; 85025

== ENCOUNTER 2020-09-14 00:03 | Emergency (ER) | payer MEDICAID, SELFPAY ==
[2020-09-14 00:13] VITALS: BP 148/73; PULSE 82; RESP 20; TEMP 36.9; O2SAT 99; BMI 31.8
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
== END 2020-09-14 00:34 | disposition home or self-care (01) ==
PROVIDERS: Emergency Provider Emergency Medicine; PCP Family Medicine
DX: S06.0X9A Concussion with loss of consciousness of unspecified duration, initial encounter (principal); S00.83XA Contusion of other part of head, initial encounter; W19.XXXA Unspecified fall, initial encounter
CPT/HCPCS: 99281

== ENCOUNTER 2020-11-06 02:07 | Emergency (ER) | payer MEDICAID, SELFPAY ==
[2020-11-06 02:10] VITALS: BP 121/60; PULSE 77; RESP 18; TEMP 36.7; O2SAT 97; BMI 31.8
--- NOTE | 2020-11-06 02:48 | DI.RAD.S_ITS ---
PROCEDURE: XR CHEST 1V INDICATIONS: Cough cold congestion TECHNIQUE: One view of the chest was acquired. COMPARISON: [facility], CR, XR CHEST 1V, 02/09/2020, 17:51. FINDINGS: Surgical changes and devices: None. Lungs and pleura: Lungs are clear. No pleural effusions or pneumothorax. Mediastinum: Mediastinal contours appear normal. Heart size is normal. Bones and chest wall: No suspicious bony lesions. Overlying soft tissues appear unremarkable. IMPRESSION: No acute disease. Dictated by: Juanito Dempsey M.D. on 11/06/2020 at 8:51 Approved by: Juanito Dempsey M.D. on 11/06/2020 at 8:51
[2020-11-06 02:55] LABS: COVID19 -Nasal RAPID Negative (Negative)
--- NOTE | 2020-11-06 03:01 | ED.GENADULT ---
HPI - General Adult General Chief complaint: Shortness of Breath/Dyspnea Stated complaint: cough/congestion/hard to breath headache Time Seen by Provider: 11/06/20 02:48 Source: patient and family Mode of arrival: Ambulatory Limitations: no limitations History of Present Illness HPI narrative: Patient is a 40-year-old female here for evaluation of coughing congestion and here discomfort and problems breathing. She is also complaining of headache. On the symptoms been going on for the past 3 days. Has not tried anything for them prior to arrival. Related Data Home Medications Medication Instructions Recorded Confirmed epinephrine [EpiPen 2-Ant] 0.3 mg SQ X1 PRN 01/13/18 08/14/20 ibuprofen 1 tab PO Q6H PRN 01/13/18 08/14/20 levothyroxine 137 mcg capsule 137 mcg PO DAILY 05/06/19 08/14/20 Previous Rx's Medication Instructions Recorded codeine-guaifenesin [Guaifenesin 5 ml PO Q6H PRN #118 ml 11/06/20 AC] Allergies Allergy/AdvReac Type Severity Reaction Status Date / Time Iodinated Contrast Media Allergy Severe Anaphylaxis Verified 08/14/20 07:57 shellfish derived Allergy Severe ALL Verified 08/14/20 07:57 SEAFOOD, POSS ANAPHYLXIS R/T EXPOSURE @ WORK iodine Allergy Mild CONTRAST - Verified 08/14/20 07:57 BODY GOES NUMB Review of Systems Constitutional Constitutional: Reports headache(s) ENT Ears, Nose, Mouth, and Throat: Reports headache(s), Reports sinus pain and Denies sore throat Cardiovascular Cardiovascular: Reports system reviewed and no additional complaints, except as documented and Reports dyspnea Respiratory Respiratory: Reports chest congestion, Reports cough and Reports dyspnea Gastrointestinal Gastrointestinal: Reports system reviewed and no additional complaints, except as documented Genitourinary Genitourinary: Reports system reviewed and no additional complaints, except as documented Integumentary/Breasts Skin/Breast: Reports system reviewed and no additional complaints, except as documented Neurologic Neurologic: Reports system reviewed and no additional complaints, except as documented and Reports headache(s) Psychiatric Psychiatric: Reports system reviewed and no additional complaints, except as documented Hematologic/Lymphatic On Anticoagulants: No Allergic/Immunologic Allergic/Immunologic: Reports system reviewed and no additional complaints, except as documented Patient History Medical History Acute bronchitis Anxiety Chest wall pain Family history of diabetes mellitus Fatigue Hypothyroidism Postoperative abdominal pain Pyelonephritis Respiratory failure Upper respiratory infection Uterine fibroid (~2020) UTI (urinary tract infection) during Viral illness Vomiting and diarrhea Surgical History (Updated 09/07/20 @ 21:47 by Mary Zarate) Anesthesia History of cholecystectomy History of dilatation and curettage Status post delivery (02/02/13) Status post knee surgery Status post tubal ligation (06/17/16) Family History (Updated 09/07/20 @ 21:48 by Mary Zarate) Father Diabetes mellitus History of heart disease Hypertension Grandmother Cancer Diabetes mellitus History of heart disease Social History Smoking Status: Current some day smoker alcohol intake: never Smoking Status: Current some day smoker alcohol intake frequency: 0-2 drinks per day Substance Use Type: does not use Exam Initial Vital Signs Initial Vital Signs: Vital Signs Temperature 98.1 F 11/06/20 02:10 Pulse Rate 77 11/06/20 02:10 Respiratory Rate 18 11/06/20 02:10 Blood Pressure 121/60 11/06/20 02:10 Pulse Oximetry 97 11/06/20 02:10 Const General: cooperative and comfortable HENMT Head: normal to inspection and atraumatic Ears: TM abnormal bulging bilaterally; not with effusion, not erythematous and with no fluid behind the TM Resp Effort & Inspection: normal respiratory effort Auscultation: clear to auscultation bilaterally Cardio Rate: regular rate Rhythm: regular rhythm Skin Lesions: no lesions Rashes: no rashes Neuro General: patient alert and patient awake Cognition: normal cognition Speech: speech normal Extrem General: normal to inspection and capillary refill normal Psych Appearance: grossly normal and well kempt Course Orders Ordered: ED Orders 11/06/20 02:33 COVID19 -Nasal swab/Pre-Proc Stat 11/06/20 02:48 XR chest 1V Stat EKG-12 Lead Stat Vital Signs Vital signs: Vital Signs - 8 hr 11/06/20 02:10 11/06/20 03:54 Temperature 98.1 F Pulse Rate 77 82 Respiratory Rate 18 16 Blood Pressure 121/60 108/58 L Pulse Oximetry 97 100 Medical Decision Making Lab Data Lab results reviewed: Yes I reviewed the patient's lab results. Labs: Lab Results 11/06/20 Range/Units 02:33 SARS-CoV-2 (PCR) Negative (Negative) Imaging Data Chest x-ray: Radiologist's Impression: No acute findings ECG Data Attestation: I personally reviewed and interpreted this ECG as follows: Prior ECG tracings: not available for review Interpretation: Sinus rhythm Ventricular rate is 77 Left axis deviation Normal QRS Normal QTC MDM Narrative Medical decision making narrative: COVID is negative. Chest x-ray shows no signs of pneumonia. She does have bilateral bulging tympanic membranes without erythema. With a cough and other symptoms she is having a do suspect an upper respiratory infection. No indication for antibiotics. She states that Tessalon Perles do not help her cough and the Robitussin with codeine has helped her in the past. She was given return precautions and follow-up instructions. Patient is safe for home discharge. She expressed understanding and agreement. Discharge Plan Departure Patient Disposition: Home Clinical Impression: Upper respiratory infection, Cough Instructions: DI for Cough -- Adult Activity Restrictions/Additional Instructions: I recommend that you start on a antihistamine such as Claritin or Mireya or Zyrtec. These medicines can be purchased [id number]. A prescription for Robitussin with codeine was transmitted to look on a drug. Take it as directed and as needed. Contact your primary provider for follow-up. Prescriptions: New codeine-guaifenesin [Guaifenesin AC] 10-100 mg/5 mL liquid 5 ml PO Q6H PRN (Reason: cough) Qty: 118 RF: 0 No Action levothyroxine 137 mcg capsule 137 mcg PO DAILY RF: 0 ibuprofen 400 mg tablet 1 tab PO Q6H PRN (Reason: Pain, Moderate) RF: 0 epinephrine [EpiPen 2-Ant] 0.3 MG/0.3 ML auto-injector 0.3 mg SQ X1 PRN (Reason: Allergic Reaction) RF: 0 Referrals: Maco Perkins, DO [Primary Care Provider] -
[2020-11-06 03:54] VITALS: BP 108/58; PULSE 82; RESP 16; O2SAT 100
== END 2020-11-06 03:54 | disposition home or self-care (01) ==
PROVIDERS: Emergency Provider Emergency Medicine; PCP Family Medicine
DX: J06.9 Acute upper respiratory infection, unspecified (principal); R05 Cough; R51.9 Headache, unspecified; R06.00 Dyspnea, unspecified; Z20.822 Contact with and (suspected) exposure to COVID-19
CPT/HCPCS: 71045; 87635; 93005; 93010; 99283; 99284; C9803

== ENCOUNTER 2021-01-18 00:14 | Emergency (ER) | payer MEDICAID, SELFPAY ==
[2021-01-18 00:19] VITALS: BP 129/81; PULSE 90; O2SAT 97
[2021-01-18 00:22] VITALS: BP 129/75; BP 129/81; PULSE 85; PULSE 89; RESP 14; RESP 17; TEMP 36.8; O2SAT 96; O2SAT 98; BMI 30.1
--- NOTE | 2021-01-18 00:26 | DI.RAD.S_ITS ---
PROCEDURE: XR CHEST 1V INDICATIONS: chest pain TECHNIQUE: One view of the chest was acquired. COMPARISON: [facility], CR, XR CHEST 1V, 11/06/2020, 2:50. FINDINGS: Surgical changes and devices: None. Lungs and pleura: Lungs are clear. No pleural effusions or pneumothorax. Mediastinum: Mediastinal contours appear normal. Heart size is normal. Bones and chest wall: No suspicious bony lesions. Overlying soft tissues appear unremarkable. IMPRESSION: No acute cardiopulmonary disease process. Dictated by: Effie Fournier MD, PhD on 01/18/2021 at 8:18 Approved by: Effie Fournier MD, PhD on 01/18/2021 at 8:20
[2021-01-18 00:30] VITALS: BP 131/72; PULSE 84; RESP 25; O2SAT 96
--- NOTE | 2021-01-18 00:39 | ED.CHESTPAIN ---
HPI - Chest Pain General Chief Complaint: Chest Pain Stated Complaint: feels heart is irregular Time Seen by Provider: 01/18/21 00:22 Source: patient Mode of arrival: Ambulatory Limitations: no limitations History of Present Illness HPI narrative: Patient is a 40-year-old female with history of hypothyroid presenting with palpitations. She says that they have been adjusting her thyroid they brought her medication from 150 mcg to 125 mcg 30 days ago. The last 2 days she has had palpitations she felt like this evening it was worse. She denies any dizziness or lightheadedness no shortness of breath. She has not had any fever or chills. She is worried about her thyroid she said it was actually checked today but she does not remember her numbers. She did receive 1 of 2 doses of her COVID vaccine. Related Data Home Medications Medication Instructions Recorded Confirmed epinephrine 0.3 mg/0.3 mL 0.3 mg SQ X1 PRN 01/13/18 08/14/20 injection, auto-injector (EpiPen 2-Ant) ibuprofen 400 mg tablet 1 tab PO Q6H PRN 01/13/18 08/14/20 levothyroxine 137 mcg capsule 137 mcg PO DAILY 05/06/19 08/14/20 Previous Rx's Medication Instructions Recorded codeine 10 mg-guaifenesin 100 mg/5 5 ml PO Q6H PRN #118 ml 11/06/20 mL oral liquid (Guaifenesin AC) Allergies Allergy/AdvReac Type Severity Reaction Status Date / Time Iodinated Contrast Media Allergy Severe Anaphylaxis Verified 08/14/20 07:57 shellfish derived Allergy Severe ALL Verified 08/14/20 07:57 SEAFOOD, POSS ANAPHYLXIS R/T EXPOSURE @ WORK iodine Allergy Mild CONTRAST - Verified 08/14/20 07:57 BODY GOES NUMB Review of Systems Review of Systems Narrative: GENERAL: Denies chills, fatigue, malaise, fever, sweats, travel HEENT: Denies sinus pain, ear pain, sore throat, difficulty swallowing, neck pain RESPIRATORY: Denies dyspnea, cough, wheezing, hemoptysis, sputum. CARDIOVASCULAR: Palpitations, see HPI GASTROINTESTINAL: Denies nausea, vomiting, abdominal pain, diarrhea, constipation, melena. : Denies dysuria, frequency, incontinence, hematuria, urinary retention, flank pain. MUSCULOSKELETAL: Denies weakness, joint pain, or bony pain SKIN: No rash, no erythema, no pruritus NEUROLOGIC: Denies weakness, dizziness, headache, numbness, change in speech, confusion PSYCHIATRIC: No concerning psychosocial issues. 12 point review of systems is negative except for those stated above and HPI Patient History Medical History Acute bronchitis Anxiety Chest wall pain Family history of diabetes mellitus Fatigue Hypothyroidism Postoperative abdominal pain Pyelonephritis Respiratory failure Upper respiratory infection Uterine fibroid (~2020) UTI (urinary tract infection) during Viral illness Vomiting and diarrhea Surgical History (Updated 09/07/20 @ 21:47 by Mary Zarate) Anesthesia History of cholecystectomy History of dilatation and curettage Status post delivery (02/02/13) Status post knee surgery Status post tubal ligation (06/17/16) Family History (Updated 09/07/20 @ 21:48 by Mary Zarate) Father Diabetes mellitus History of heart disease Hypertension Grandmother Cancer Diabetes mellitus History of heart disease Social History Smoking Status: Current some day smoker alcohol intake: never Smoking Status: Current some day smoker tobacco type: vaping alcohol intake frequency: 0-2 drinks per day Substance Use Type: does not use Exam Initial Vital Signs Initial Vital Signs: Vital Signs Pulse Rate 90 01/18/21 00:19 Blood Pressure 129/81 01/18/21 00:19 Pulse Oximetry 97 01/18/21 00:19 GENERAL: Alert well-appearing 40-year-old female and in [no acute] distress. HEENT: Head atraumatic,EOMI, pupils reactive, face symmetric, [moist] mucous membranes CARDIOVASCULAR: Regular rate and rhythm without murmurs, rubs or gallops. RESPIRATORY: Breath sounds equal bilaterally, no wheezes rales or rhonchi. ABDOMEN: Soft, nontender. Normoactive bowel sounds all 4 quadrants. No guarding or rebound. : No CVA tenderness EXTREMITIES: Normal range of motion, no clubbing or edema. Neurovascularly intact NEUROLOGICAL: Alert and oriented x4.Normal gait and speech. SKIN: Warm, dry, no laceration, no petechiae, no rashes or lesions. Course Orders Ordered: ED Orders 01/18/21 00:21 EKG-12 Lead Routine 01/18/21 00:26 XR chest 1V Stat 01/18/21 00:31 Complete Blood Count AUTO DIFF Stat Comprehensive Metabolic Panel Stat Lipase Stat Thyroid Stimulating Hormone Stat Troponin & CK Cardiac Panel Stat Vital Signs Vital signs: Vital Signs - 8 hr 01/18/21 00:19 01/18/21 00:22 01/18/21 00:30 Temperature 98.2 F Pulse Rate 90 85 84 Respiratory Rate 14 25 H Blood Pressure 129/81 129/75 131/72 Pulse Oximetry 97 96 96 01/18/21 01:00 01/18/21 01:30 Temperature Pulse Rate 84 80 Respiratory Rate 23 20 Blood Pressure 113/67 108/66 Pulse Oximetry 95 96 MDM - Chest Pain Lab Data Result diagrams: 01/18/21 00:31 01/18/21 00:31 Labs: Lab Results 01/18/21 01/18/21 01/18/21 Range/Units 00:31 00:31 00:31 WBC 11.0 (4.5-11.0) X10^3/uL RBC 4.47 (4.0-5.2) X10^6/uL Hgb 14.2 (12.0-16.0) g/dL Hct 41.4 (36-46) % MCV 92.5 (80-100) fL MCH 31.7 (26-34) PG MCHC 34.3 (30-36) % RDW 12.4 (11.6-14.8) % Plt Count 317 (150-400) X10^3/uL Neut % (Auto) 65.7 (50-75) % Lymph % (Auto) 22.4 L (25-40) % [place] % (Auto) 7.7 (3-14) % Eos % (Auto) 3.3 (2-4) % Baso % (Auto) 0.9 (0-2) % Neut # (Auto) 7200 H (9100-8770) /uL Lymph # (Auto) 2500 (9969-9972) /uL [place] # (Auto) 800 (0-900) /uL Eos # (Auto) 400 (0-450) /uL Baso # (Auto) 100 (0-100) /uL Sodium 140 (137-145) mmol/L Potassium 3.7 (3.4-5.1) mmol/L Chloride 108 H (98-107) mmol/L Carbon Dioxide 24 (22-32) mmol/L BUN 7 (7-17) mg/dL Creatinine 0.57 (0.52-1.04) mg/dL Estimated GFR > 60.0 (>60) mL/min BUN/Creatinine Ratio 12.3 (6-22) Glucose 113 H (70-100) mg/dL Calcium 8.4 (8.4-10.2) mg/dL Total Bilirubin 0.6 (0.2-1.3) mg/dL AST 31 (14-36) IU/L ALT 38 H (<35) IU/L Alkaline Phosphatase 85 (38-126) U/L Total Creatine Kinase 53 (30-135) U/L CK-MB (CK-2) TNP CK-MB (CK-2) Rel Index TNP Troponin I < 0.012 (0.01-0.034) ng/mL Total Protein 6.9 (6.3-8.2) g/dL Albumin 3.9 (3.5-5.0) g/dL Globulin 3.0 (1.7-4.1) g/dL Albumin/Globulin Ratio 1.3 (1.0-2.8) Lipase 85 (23-300) U/L TSH 0.768 (0.47-4.68) uIU/mL Imaging Data Chest x-ray: Radiologist's Impression: No significant abnormalities ECG Data Interpretation: Normal sinus rhythm rate 86 PA interval 148 QRS [address] changes no T-wave inversions no PVCs MDM Narrative Medical decision making narrative: Patient is on the monitor for her entire emergency department she remains in normal sinus rhythm without PVCs. Blood work is overall reassuring. TSH is 0.7 which is higher than what it was previously at this hospital although it sounds like she just had blood work done and her primary care provider is monitoring her thyroid. She certainly is not on any thyroid storm. At this time patient is reassured home in her recommend she follow up with primary care provider she may need a Holter monitor as outpatient as well. Discharge Plan Departure Patient Disposition: Home Clinical Impression: Heart palpitations Instructions: DI for Arrhythmias Activity Restrictions/Additional Instructions: *You have been diagnosed with heart palpitations *What to do: At this time blood work and heart rate are all reassuring. He has been on the monitor and there have been no abnormalities. Your thyroid numbers are still low but are probably moving in the right direction. Please follow-up with your primary care provider in regards to your medication. You may also need what is called a Holter monitor to monitor your heart rate if you continued to have palpitations. *Continue to take medications as directed *Follow up with your primary care provider in 2-3 days *Return to ER if you should have increasing palpitations chest pain, dizziness, lightheaded or any new, worsening or concerning symptoms Prescriptions: No Action levothyroxine 137 mcg capsule 137 mcg PO DAILY RF: 0 ibuprofen 400 mg tablet 1 tab PO Q6H PRN (Reason: Pain, Moderate) RF: 0 epinephrine [EpiPen 2-Ant] 0.3 MG/0.3 ML auto-injector 0.3 mg SQ X1 PRN (Reason: Allergic Reaction) RF: 0 codeine-guaifenesin [Guaifenesin AC] 10-100 mg/5 mL liquid 5 ml PO Q6H PRN (Reason: cough) Qty: 118 RF: 0 Referrals: Maco Perkins, [Primary Care Provider] -
[2021-01-18 00:43] LABS: Add Manual Diff / Slide Review NO; Basophils Absolute Auto 100 /uL (0-100); Basophils Percent Auto 0.9 % (0-2); Eosinophils Absolute Auto 400 /uL (0-450); Eosinophils Percent Auto 3.3 % (2-4); Hematocrit 41.4 % (36-46); Hemoglobin 14.2 g/dL (12.0-16.0); Lymphocytes Absolute Auto 2500 /uL (1100-4500); Lymphocytes Percent Auto 22.4 % (25-40); Mean Corpuscular HGB Conc 34.3 % (30-36); Mean Corpuscular Hemoglobin 31.7 PG (26-34); Mean Corpuscular Volume 92.5 fL (80-100); Monocytes Absolute Auto 800 /uL (0-900); Monocytes Percent Auto 7.7 % (3-14); Neutrophils Absolute Auto 7200 /uL (1500-7000); Neutrophils Percent Auto 65.7 % (50-75); Platelet Count 317 X10^3/uL (150-400); Red Blood Cell Count 4.47 X10^6/uL (4.0-5.2); Red Cell Distribution Width 12.4 % (11.6-14.8)
[2021-01-18 00:50] LABS: Alanine Aminotransferase 38 IU/L (<35); Albumin 3.9 g/dL (3.5-5.0); Albumin Globulin Ratio 1.3 (1.0-2.8); Alkaline Phosphatase 85 U/L (38-126); Aspartate Aminotransferase 31 IU/L (14-36); BUN Creatinine Ratio 12.3 (6-22); Bilirubin Total 0.6 mg/dL (0.2-1.3); Blood Urea Nitrogen 7 mg/dL (7-17); Calcium 8.4 mg/dL (8.4-10.2); Carbon Dioxide 24 mmol/L (22-32); Chloride 108 mmol/L (98-107); Creatine Kinase 53 U/L (30-135); Estimated Glomerular Filt Rate > 60.0 mL/min (>60); Glucose 113 mg/dL (70-100); HEMOLYSIS < 15 (0-50); Lipase 85 U/L (23-300); Potassium 3.7 mmol/L (3.4-5.1); Sodium 140 mmol/L (137-145); Total Protein 6.9 g/dL (6.3-8.2)
[2021-01-18 01:00] VITALS: BP 113/67; PULSE 84; RESP 23; O2SAT 95
[2021-01-18 01:01] LABS: Troponin I < 0.012 ng/mL (0.01-0.034)
[2021-01-18 01:30] VITALS: BP 108/66; PULSE 80; RESP 20; O2SAT 96
[2021-01-18 01:43] LABS: Thyroid Stimulating Hormone 0.768 uIU/mL (0.47-4.68)
== END 2021-01-18 02:03 | disposition home or self-care (01) ==
PROVIDERS: Emergency Provider Emergency Medicine; PCP Family Medicine
DX: R00.2 Palpitations (principal)
CPT/HCPCS: 36415; 71045; 80053; 82550; 83690; 84443; 84484; 85025; 93005; 93010; 99284

== ENCOUNTER 2021-03-16 14:11 | Emergency (ER) | payer MEDICAID, SELFPAY ==
[2021-03-16 14:51] VITALS: BP 118/76; PULSE 91; RESP 18; TEMP 37.2; O2SAT 98; BMI 30.1
[2021-03-16 15:39] LABS: COVID19 -Nasal RAPID Negative (Negative)
--- NOTE | 2021-03-16 15:42 | ED_ITS ---
HPI - URI/Sore Throat <Alis Barker, [facility] - Last Filed: 03/16/21 17:17> General Chief Complaint: Upper Respiratory Symptoms Stated Complaint: Cough, Sneezing, congestion, nausea Time Seen by Provider: 03/16/21 14:49 Source: patient Mode of arrival: Ambulatory Limitations: no limitations History of Present Illness HPI Narrative: 40-year-old female with past medical history of hypothyroidism and anxiety presents to the emergency department with complaint of cough, sneezing, congestion, and nausea which started 1 week ago. She reports that 1 of her 5 children is sick with pneumonia, and she has been sick for a couple weeks at. Patient reports she is vaccinated for COVID, she was concerned about having COVID and requested testing today. Patient endorses having nausea, vomiting, and diarrhea for the last few days. She endorses being fatigued, feels dehydrated, and having frequent coughing which is keeping her up at night. She denies any chest pain, shortness of breath, wheezing, dizziness, back pain, dysuria, abdominal pain, or fevers. She states her cough is nonproductive, she endorses being a smoker Related Data Home Medications Medication Instructions Recorded Confirmed epinephrine 0.3 mg/0.3 mL 0.3 mg SQ X1 PRN 01/13/18 08/14/20 injection, auto-injector (EpiPen 2-Ant) ibuprofen 400 mg tablet 1 tab PO Q6H PRN 01/13/18 08/14/20 levothyroxine 137 mcg capsule 137 mcg PO DAILY 05/06/19 08/14/20 Previous Rx's Medication Instructions Recorded codeine 10 mg-guaifenesin 100 mg/5 5 ml PO Q6H PRN #118 ml 11/06/20 mL oral liquid (Guaifenesin AC) codeine 10 mg-guaifenesin 100 mg/5 5 ml PO Q6H PRN #118 ml 03/16/21 mL oral liquid ondansetron 4 mg disintegrating 4 mg PO Q8H PRN #14 tab 03/16/21 tablet sulfamethoxazole 800 1 tab PO BID 7 Days #14 tab 03/16/21 mg-trimethoprim 160 mg tablet (Bactrim DS) Allergies Allergy/AdvReac Type Severity Reaction Status Date / Time Iodinated Contrast Media Allergy Severe Anaphylaxis Verified 08/14/20 07:57 shellfish derived Allergy Severe ALL Verified 08/14/20 07:57 SEAFOOD, POSS ANAPHYLXIS R/T EXPOSURE @ WORK iodine Allergy Mild CONTRAST - Verified 08/14/20 07:57 BODY GOES NUMB Review of Systems <JOSEPH Kaufman - Last Filed: 03/16/21 17:17> Review of Systems Narrative: General: denies fever, chills Head/Neck: denies headache, neck pain Eyes: denies visual changes, eye pain Cardio: denies chest pain, palpitations Respiratory: denies shortness of breath, cough GI: denies abdominal pain, but does complain of nausea, vomiting, and diarrhea : denies dysuria, hematuria MSK: denies joint pain, muscle weakness Skin: denies rash, itching Neuro: denies numbness, tingling Patient History <JOSEPH Kaufman - Last Filed: 03/16/21 17:17> Medical History Acute bronchitis Anxiety Chest wall pain Family history of diabetes mellitus Fatigue Hypothyroidism Postoperative abdominal pain Pyelonephritis Respiratory failure Upper respiratory infection Uterine fibroid (~2020) UTI (urinary tract infection) during Viral illness Vomiting and diarrhea Surgical History Anesthesia History of cholecystectomy History of dilatation and curettage Status post delivery (02/02/13) Status post knee surgery Status post tubal ligation (06/17/16) Family History Father Diabetes mellitus History of heart disease Hypertension Grandmother Cancer Diabetes mellitus History of heart disease Social History Smoking Status: Current some day smoker alcohol intake: never Smoking Status: Current some day smoker tobacco type: vaping alcohol intake frequency: a few times a month Substance Use Type: marijuana Exam <JOSEPH Kaufman - Last Filed: 03/16/21 17:17> Narrative Exam Narrative: Independently reviewed vitals signs and nursing notes. General: Awake, alert, nontoxic, no cardiorespiratory distress Head/Neck: Atraumatic, neck full range of motion Eyes: EOMI, conjunctiva normal Ears: bulging TMs bilaterally without purulence or erythema, no drainage or cerumen in canal, Nose: nares patent, + rhinorrhea, no purulent discharge, no sinus tenderness to palpation Mouth/Throat: moist mucus membranes, has a vertical lesion in her posterior pharynx with exudate and is approximately 2 cm by 0.5 cm with erythema, no oral lesions, tonsils without swelling or exudate, no lymphadenopathy Cardio: Regular rate and rhythm, no peripheral edema Respiratory: respirations unlabored without wheezing, stridor, or rales. No retractions. regular rate and rhythm GI: Abdomen soft, nontender, no masses MSK: Moves all extremities, neurovascularly intact Skin: Normal capillary refill, no rash Neuro: Normal speech and cognition, normal gait Initial Vital Signs Initial Vital Signs: Vital Signs Temperature 98.9 F 03/16/21 14:51 Pulse Rate 91 H 03/16/21 14:51 Respiratory Rate 18 03/16/21 14:51 Blood Pressure 118/76 03/16/21 14:51 Pulse Oximetry 98 03/16/21 14:51 <Khadijah Oden DO - Last Filed: 03/20/21 07:18> Initial Vital Signs Initial Vital Signs: Vital Signs Temperature 98.9 F 03/16/21 14:51 Pulse Rate 91 H 03/16/21 14:51 Respiratory Rate 18 03/16/21 14:51 Blood Pressure 118/76 03/16/21 14:51 Pulse Oximetry 98 03/16/21 14:51 Course <JOSEPH Kaufman - Last Filed: 03/16/21 17:17> Orders Ordered: Discontinued Medications Guaifenesin/Codeine Phosphate (Codeine/Guaifenesin Liquid 5ml Udc) 10 ml PO NOW ONE Stop: 03/16/21 16:15 Last Admin: 03/16/21 16:49 Dose: 10 ml Documented by: DO Ondansetron HCl (Ondansetron 4 Mg Odt) 4 mg SL NOW ONE Stop: 03/16/21 16:12 Last Admin: 03/16/21 16:49 Dose: 4 mg Documented by: DO Trimethoprim/Sulfamethoxazole (Trimeth/Sulfa 160/800 (Ds) Tablet) 1 tab PO NOW ONE Stop: 03/16/21 16:52 Last Admin: 03/16/21 16:54 Dose: 1 tab Documented by: DO Vital Signs Vital signs: Vital Signs - 8 hr 03/16/21 14:51 03/16/21 16:55 Temperature 98.9 F 99.1 F Pulse Rate 91 H 87 Respiratory Rate 18 22 Blood Pressure 118/76 141/75 H Pulse Oximetry 98 99 <Khadijah Oden DO - Last Filed: 03/20/21 07:18> Orders Ordered: Discontinued Medications Guaifenesin/Codeine Phosphate (Codeine/Guaifenesin Liquid 5ml Udc) 10 ml PO NOW ONE Stop: 03/16/21 16:15 Last Admin: 03/16/21 16:49 Dose: 10 ml Documented by: DO Ondansetron HCl (Ondansetron 4 Mg Odt) 4 mg SL NOW ONE Stop: 03/16/21 16:12 Last Admin: 03/16/21 16:49 Dose: 4 mg Documented by: DO Trimethoprim/Sulfamethoxazole (Trimeth/Sulfa 160/800 (Ds) Tablet) 1 tab PO NOW ONE Stop: 03/16/21 16:52 Last Admin: 03/16/21 16:54 Dose: 1 tab Documented by: DO Vital Signs Vital signs: Vital Signs - 8 hr 03/16/21 14:51 03/16/21 16:55 Temperature 98.9 F 99.1 F Pulse Rate 91 H 87 Respiratory Rate 18 22 Blood Pressure 118/76 141/75 H Pulse Oximetry 98 99 MDM - URI/Sore Throat <JOSEPH Kaufman - Last Filed: 03/16/21 17:17> Lab Data Labs: Lab Results 03/16/21 03/16/21 Range/Units 14:56 16:25 Urine Color Yellow Urine Appearance Cloudy Urine pH 7.0 (4.5-8.0) Ur Specific [place] 1.020 (1.000-1.035) Urine Protein 1+ H (Negative) Urine Glucose (UA) Trace H (Negative) g/dL Urine Ketones Negative (NEGATIVE) Urine Occult Blood Negative (Negative) Urine Nitrate Positive H (Negative) Urine Bilirubin Negative (NEGATIVE) Urine Urobilinogen 1.0 (0.2) E.U./dL Ur Leukocyte Esterase Trace H (NEGATIVE) Urine RBC 0-1/hpf (0-5/HPF) Urine WBC 10-30/hpf H (0-5/HPF) Ur Squamous Epith Cells 1-5 /hpf (0-5/HPF) Ur Transition Epith Cell 5-10/hpf H (0-5/HPF) Urine Bacteria Many (>30) H (None) Ur Culture Indicated? Specimen cultured SARS-CoV-2 (PCR) Negative (Negative) Point of Care Testing Test Results Negative Rapid Strep A Negative Urine Dip Bedside Urine Glucose Negative Bedside Urine Bilirubin - Negative Bedside Urine Ketone - Negative Urine Specific [place] 1.020 Bedside Urine Occult Blood - Negative Bedside Urine pH 7.0 Bedside Urine Protein +/- 15 Bedside Urine Urobilinogen 1+ 2mg Bedside Urine Nitrite + Positive Bedside Urine Leukocytes +/- 15 Esterase MDM Narrative Medical decision making narrative: 40-year-old female with upper respiratory congestion, cough, sore throat, intermittent headache, and reports nausea and vomiting for the last 5 days. COVID is negative, strep test Negative, GC chlamydia throat swab for suspicious lesion which is still pending. Had low suspicion for strep although suspicious lesion in posterior pharynx, considering gonorrhea or chlamydia with test pending. She does have bilateral bulging tympanic membranes without erythema, a nonproductive cough and other symptoms she is having, I suspect this is an upper respiratory illness. No indication for antibiotics. On previous visits she has reported that Tessalon Perles do not help her cough, and she was requesting Robitussin with codeine and something for her nausea. her urine was negative, her urine dip was positive for leukocytes and nitrates and sent to lab for microscopy. She has history of complicated UTIs with failed treatment on Macrobid. Because of this I opted to start her on Bactrim for a 7 day course with a follow-up visit to her PCP in the next 2-3 days. Patient is appropriate and amenable to discharge home. Vital signs are stable on repeat examination is unremarkable. Patient has been informed of results. Patient has been given strict return to ER precautions for any new or worsening symptoms. Patient understands to follow up closely with outpatient providers as instructed. Patient understands plan and agrees to discharge home. All questions and concerns answered at this time. <Khadijah Oden, DO - Last Filed: 03/20/21 07:18> Lab Data Labs: Lab Results 03/16/21 03/16/21 Range/Units 14:56 16:25 Urine Color Yellow Urine Appearance Cloudy Urine pH 7.0 (4.5-8.0) Ur Specific [place] 1.020 (1.000-1.035) Urine Protein 1+ H (Negative) Urine Glucose (UA) Trace H (Negative) g/dL Urine Ketones Negative (NEGATIVE) Urine Occult Blood Negative (Negative) Urine Nitrate Positive H (Negative) Urine Bilirubin Negative (NEGATIVE) Urine Urobilinogen 1.0 (0.2) E.U./dL Ur Leukocyte Esterase Trace H (NEGATIVE) Urine RBC 0-1/hpf (0-5/HPF) Urine WBC 10-30/hpf H (0-5/HPF) Ur Squamous Epith Cells 1-5 /hpf (0-5/HPF) Ur Transition Epith Cell 5-10/hpf H (0-5/HPF) Urine Bacteria Many (>30) H (None) Ur Culture Indicated? Specimen cultured SARS-CoV-2 (PCR) Negative (Negative) Point of Care Testing Test Results Negative Rapid Strep A Negative Urine Dip Bedside Urine Glucose Negative Bedside Urine Bilirubin - Negative Bedside Urine Ketone - Negative Urine Specific [place] 1.020 Bedside Urine Occult Blood - Negative Bedside Urine pH 7.0 Bedside Urine Protein +/- 15 Bedside Urine Urobilinogen 1+ 2mg Bedside Urine Nitrite + Positive Bedside Urine Leukocytes +/- 15 Esterase Discharge Plan Departure Patient Disposition: Home Clinical Impression: Complicated urinary tract infection Upper respiratory infection Qualifiers: URI type: unspecified URI Qualified Code(s): J06.9 - Acute upper respiratory infection, unspecified Instructions: Common Cold, DI for Urinary Tract Infection (UTI), DI for Viral Upper Respiratory Infection -- Adult Activity Restrictions/Additional Instructions: *You have been diagnosed with an upper respiratory infection which is most likely viral in nature. respiratory viruses do cause nausea and sometimes vomiting. If this is worsening or you develop abdominal pain or persistent vomiting with a fever please return to the emergency department as there may be another cause for these symptoms. There appears to be an infection in your urine, And you have a history complicated UTIs. Your COVID test was negative today, your breath sounds are clear which is reassuring. I am sorry for your bothersome cough. I noticed that you had Robitussin with codeine for this in the past, I am willing to write you for this again however it is important that you quit smoking if you are having a sore throat and cough symptoms to help her self get better sooner. Your strep test was negative, the throat culture is pending, we will call you if this is positive and I can call in antibiotics if necessary. Please use Zofran as needed for nausea over the next couple of days, try to get hydrated with Gatorade and water, take ibuprofen and Tylenol for pain, use the cough syrup sparingly and keep it away from other members in your family as this is a controlled substance. Please follow-up with your primary care provider Kristopher Perkins in the next few days for a follow-up. *What to do: *Please continue to take your regular medications as directed. [x ] New medication prescriptions sent to your pharmacy: [[facility] ] [ ] New medication written as a paper prescription [ ] No new medications given *Please follow up with your primary care provider in 2-3 days, call for an appointment. Let them know you were seen in the Emergency Department and that we ask that you be seen in follow up. We will electronically transmit a record of today's note if your PCP is in our system *If you do not have a primary care provider please contact the [facility] Resource line at [phone]. They will ask some questions about your medical history and help get you set up with a doctor in the community. *Return to Emergency Department if you should have any new, worsening or concerning symptoms, such as [fever greater than 101F, chills, worsening pain, persistent vomiting or other bothersome symptoms] Prescriptions: New codeine-guaifenesin 10-100 mg/5 mL liquid 5 ml PO Q6H PRN (Reason: cough) Qty: 118 RF: 0 sulfamethoxazole-trimethoprim [Bactrim DS] 800-160 mg tablet 1 tab PO BID 7 Days Qty: 14 RF: 0 ondansetron 4 mg tablet,disintegrating 4 mg PO Q8H PRN (Reason: nausea and vomiting) Qty: 14 RF: 0 No Action levothyroxine 137 mcg capsule 137 mcg PO DAILY RF: 0 ibuprofen 400 mg tablet 1 tab PO Q6H PRN (Reason: Pain, Moderate) RF: 0 epinephrine [EpiPen 2-Ant] 0.3 MG/0.3 ML auto-injector 0.3 mg SQ X1 PRN (Reason: Allergic Reaction) RF: 0 codeine-guaifenesin [Guaifenesin AC] 10-100 mg/5 mL liquid 5 ml PO Q6H PRN (Reason: cough) Qty: 118 RF: 0 Referrals: Maco Perkins DO [Primary Care Provider] - 3-5 days <Khadijah Oden DO - Last Filed: 03/20/21 07:18> Cosign ED Attending Josr Attestation: I was immediately available in the department for consultation. Documentation has been reviewed. I agree with assessment and plan.
[2021-03-16 16:42] LABS: Appearance Urine UA CLOUDY; Bilirubin Urine UA NEGATIVE (NEGATIVE); Color Urine UA YELLOW; Glucose Urine UA TRACE g/dL (Negative); Ketones Urine UA NEGATIVE (NEGATIVE); Leukocyte Esterase Urine UA TRACE (NEGATIVE); Nitrite Urine UA POSITIVE (Negative); Occult Blood Urine UA NEGATIVE (Negative); Protein Urine UA 1+ (Negative)
[2021-03-16] MEDS: CODEINE/GUAIFENESIN LIQUID 5ML UDC 10 ML PO (16:49)
[2021-03-16] MEDS: ONDANSETRON 4 MG ODT SL (16:49)
[2021-03-16] MEDS: TRIMETH/SULFA 160/800 (DS) TABLET 1 TAB PO (16:54)
[2021-03-16 16:55] VITALS: BP 141/75; PULSE 87; RESP 22; TEMP 37.3; O2SAT 99
[2021-03-16 17:06] LABS: Bacteria Urine Many (>30); Culture Indicated Urine Specimen Cultured; RBC Urine 0-1/HPF (0-5/HPF); Squamous Epithelial Cell Urine 1-5 /HPF (0-5/HPF); Transitional Epi Cells Urine 5-10/HPF (0-5/HPF); WBC Urine 10-30/HPF (0-5/HPF)
== END 2021-03-16 17:04 | disposition home or self-care (01) ==
PROVIDERS: Emergency Medicine; Emergency Provider Nurse Practitioner Critical Care Medicine; PCP Family Medicine
DX: J06.9 Acute upper respiratory infection, unspecified (principal); N39.0 Urinary tract infection, site not specified; R11.2 Nausea with vomiting, unspecified; F17.290 Nicotine dependence, other tobacco product, uncomplicated; Z20.822 Contact with and (suspected) exposure to COVID-19
CPT/HCPCS: 81001; 81003; 81025; 87077; 87081; 87086; 87186; 87635; 87880; 99283; C9803

== ENCOUNTER 2021-04-23 19:07 | Emergency (ER) | payer MEDICAID, SELFPAY ==
[2021-04-23 19:18] VITALS: BP 145/76; PULSE 124; RESP 18; TEMP 37.8; O2SAT 94
--- NOTE | 2021-04-23 19:26 | DI.RAD.S_ITS ---
PROCEDURE: XR CHEST 2V INDICATIONS: fever/cough TECHNIQUE: 2 views of the chest were acquired. COMPARISON: [facility], CR, XR CHEST 1V, 01/18/2021, 0:28. FINDINGS: Surgical changes and devices: None. Lungs and pleura: Lungs are clear. No pleural effusions or pneumothorax. Mediastinum: Mediastinal contours are normal. Heart size is normal. Bones and chest wall: No suspicious bony abnormalities. Soft tissues appear unremarkable. IMPRESSION: No acute cardiopulmonary disease process. Dictated by: Effie Fournier MD, PhD on 04/23/2021 at 20:06 Approved by: Effie Fournier MD, PhD on 04/23/2021 at 20:07
[2021-04-23 19:46] LABS: COVID19 -Nasal RAPID POSITIVE (Negative)
== END 2021-04-23 21:53 | disposition left against medical advice (07) ==
PROVIDERS: Emergency Provider Emergency Medicine; PCP Family Medicine
DX: R50.9 Fever, unspecified (principal); R05.9 Cough, unspecified; Z20.822 Contact with and (suspected) exposure to COVID-19
CPT/HCPCS: 71046; 87635; 99283; C9803

== ENCOUNTER 2021-07-31 15:59 | Emergency (ER) | payer MEDICAID, OTHER, SELFPAY ==
[2021-07-31 16:13] VITALS: BP 145/82; PULSE 95; RESP 20; TEMP 36.9; O2SAT 97; BMI 30.1
[2021-07-31 17:03] LABS: Add Manual Diff / Slide Review NO; Basophils Absolute Auto 100 /uL (0-100); Eosinophils Absolute Auto 400 /uL (0-450); Eosinophils Percent Auto 3.9 % (2-4); Hematocrit 42.1 % (36-46); Hemoglobin 14.8 g/dL (12.0-16.0); Lymphocytes Absolute Auto 1700 /uL (1100-4500); Lymphocytes Percent Auto 19.3 % (25-40); Mean Corpuscular HGB Conc 35.1 % (30-36); Mean Corpuscular Hemoglobin 32.9 PG (26-34); Mean Corpuscular Volume 93.8 fL (80-100); Monocytes Absolute Auto 600 /uL (0-900); Monocytes Percent Auto 6.7 % (3-14); Neutrophils Absolute Auto 6100 /uL (1500-7000); Neutrophils Percent Auto 69.1 % (50-75); Platelet Count 367 X10^3/uL (150-400); Red Blood Cell Count 4.49 X10^6/uL (4.0-5.2); Red Cell Distribution Width 12.6 % (11.6-14.8); White Blood Cell Count 8.9 X10^3/uL (4.5-11.0)
[2021-07-31 17:13] LABS: Pregnancy Test Urine Negative (Negative)
[2021-07-31 17:25] LABS: Blood Urea Nitrogen 8 mg/dL (7-17); Calcium 8.6 mg/dL (8.4-10.2); Carbon Dioxide 30 mmol/L (22-32); Chloride 105 mmol/L (98-107); Estimated Glomerular Filt Rate > 60.0 mL/min (>60); Glucose 99 mg/dL (70-100); HEMOLYSIS < 15 (0-50); Potassium 3.9 mmol/L (3.4-5.1); Sodium 138 mmol/L (137-145)
[2021-07-31 17:29] LABS: Appearance Urine UA CLOUDY; Bilirubin Urine UA NEGATIVE (NEGATIVE); Color Urine UA RED; Glucose Urine UA NEGATIVE (Negative); Ketones Urine UA TRACE (NEGATIVE); Leukocyte Esterase Urine UA TRACE (NEGATIVE); Nitrite Urine UA NEGATIVE (Negative); Occult Blood Urine UA 3+ (Negative); Protein Urine UA 2+ (Negative); Specific Gravity Urine UA 1.015 (1.000-1.035); Urobilinogen Urine UA 0.2 E.U./dL (0.2)
[2021-07-31 17:30] LABS: pH Urine UA 8.5 (4.5-8.0)
[2021-07-31 17:42] LABS: RBC Urine >100/HPF (0-5/HPF); WBC Urine 0-1/HPF (0-5/HPF)
[2021-07-31 17:43] LABS: Bacteria Urine Few (2-10); Squamous Epithelial Cell Urine 10-30 /HPF (0-5/HPF)
[2021-07-31 17:45] LABS: Culture Indicated Urine Cult Not Indicated
--- NOTE | 2021-07-31 19:30 | ED.FEMALEGU ---
HPI - Female Genitourinary General Chief complaint: Urogenital-Female Stated complaint: BLOOD CLOTS BLEEDING SEVERE PAIN LOWER PART STOMAC Time Seen by Provider: 07/31/21 16:41 Source: patient Mode of arrival: Ambulatory History of Present Illness HPI Narrative: 41-year-old female smoker presents with her significant other and a chief complaint of lower pelvic cramping and episodes of intense vaginal bleeding in the passage of clots over the past few days. She states that she has been having a difficult time with her menstrual cycle and vaginal bleeding ever since she had her tubes tied about 6 years ago. She states yesterday she was bleeding much heavier than today and certainly is not saturating a pad per hour currently. She is not dizzy nor weak or lightheaded. She denies any fever or chills. She has had no nausea or vomiting. Her pain is worse when she moves and improves with rest Related Data Home Medications Medication Instructions Recorded Confirmed epinephrine 0.3 mg/0.3 mL 0.3 mg SQ X1 PRN 01/13/18 08/14/20 injection, auto-injector (EpiPen 2-Ant) ibuprofen 400 mg tablet 1 tab PO Q6H PRN 01/13/18 08/14/20 levothyroxine 137 mcg capsule 137 mcg PO DAILY 05/06/19 08/14/20 Previous Rx's Medication Instructions Recorded codeine 10 mg-guaifenesin 100 mg/5 5 ml PO Q6H PRN #118 ml 11/06/20 mL oral liquid (Guaifenesin AC) codeine 10 mg-guaifenesin 100 mg/5 5 ml PO Q6H PRN #118 ml 03/16/21 mL oral liquid ondansetron 4 mg disintegrating 4 mg PO Q8H PRN #14 tab 03/16/21 tablet Allergies Allergy/AdvReac Type Severity Reaction Status Date / Time Iodinated Contrast Media Allergy Severe Anaphylaxis Verified 08/14/20 07:57 shellfish derived Allergy Severe ALL Verified 08/14/20 07:57 SEAFOOD, POSS ANAPHYLXIS R/T EXPOSURE @ WORK iodine Allergy Mild CONTRAST - Verified 08/14/20 07:57 BODY GOES NUMB Review of Systems Review of Systems Narrative: GENERAL: Denies chills, fatigue, malaise, fever, sweats. HEENT: Denies sinus pain, ear pain, sore throat, difficulty swallowing, dizziness. RESPIRATORY: Denies dyspnea, cough, wheezing, hemoptysis, sputum. CARDIOVASCULAR: Denies chest pain, palpitations, orthopnea, edema, GASTROINTESTINAL: Denies nausea, vomiting, abdominal pain, diarrhea, constipation, melena. : See HPI MUSCULOSKELETAL: denies weakness, joint pain, or bony pain SKIN: Denies rash, skin lesions, or other NEUROLOGIC: Denies weakness, headache, numbness, change in speech, confusion, seizures, incoordination. PSYCHIATRIC: No concerning psychosocial issues. 12 point review of systems is negative except for those stated above Patient History Medical History Acute bronchitis Anxiety Chest wall pain Family history of diabetes mellitus Fatigue Hypothyroidism Postoperative abdominal pain Pyelonephritis Respiratory failure Upper respiratory infection Uterine fibroid (~2020) UTI (urinary tract infection) during Viral illness Vomiting and diarrhea Surgical History Anesthesia History of cholecystectomy History of dilatation and curettage Status post delivery (02/02/13) Status post knee surgery Status post tubal ligation (06/17/16) Family History Father Diabetes mellitus History of heart disease Hypertension Grandmother Cancer Diabetes mellitus History of heart disease tobacco type: cigarettes alcohol intake frequency: a few times a month Substance Use Type: does not use Exam Narrative Exam Narrative: GENERAL: [41 year old patient appears stated age. Well-developed patient, in mild distress. HEAD: Atraumatic. Normocephalic. EYES: Pupils equal round and reactive. Extraocular motions intact. No scleral icterus. No injection or drainage. ENT: Nose without bleeding, purulent drainage. Throat without erythema, tonsillar hypertrophy or exudate. Airway patent. NECK: Trachea midline. Non tender CARDIOVASCULAR: Regular rate and rhythm without murmurs, gallops, or rubs. RESPIRATORY: Clear to auscultation. Breath sounds equal bilaterally. No wheezes, rales, or rhonchi. GASTROINTESTINAL: Abdomen soft, mild suprapubic tenderness, nondistended. Bowel sounds present EXTREMITIES: No edema or joint tenderness. BACK: Nontender without deformity or crepitance. No flank tenderness. NEURO: AOx3. SKIN: No rash or erythema of visible areas Initial Vital Signs Initial Vital Signs: Vital Signs Temperature 98.5 F 07/31/21 16:13 Pulse Rate 95 H 07/31/21 16:13 Respiratory Rate 20 07/31/21 16:13 Blood Pressure 145/82 H 07/31/21 16:13 Pulse Oximetry 97 07/31/21 16:13 Course Orders Ordered: ED Orders 07/31/21 19:39 US pelvic complete Stat Discontinued Medications Ketorolac Tromethamine (Ketorolac 30 Mg/Ml Vial) 15 mg IV NOW ONE Stop: 07/31/21 20:34 Last Admin: 07/31/21 20:39 Dose: 15 mg Documented by: BIPIN Reevaluation(s) Reevaluation #1: Very minimal bleeding if any currently, per report from 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 Vital Signs Vital signs: Vital Signs - 8 hr 07/31/21 20:33 07/31/21 20:34 07/31/21 21:00 Pulse Rate 93 H 90 80 Respiratory Rate 18 Blood Pressure 129/60 Pulse Oximetry 96 96 97 07/31/21 21:26 Pulse Rate 90 Respiratory Rate Blood Pressure 118/58 L Pulse Oximetry 97 MDM - Female Genitourinary Lab Data Result diagrams: 07/31/21 16:44 07/31/21 16:44 Labs: Lab Results 07/31/21 07/31/21 07/31/21 Range/Units 16:44 16:44 16:44 WBC 8.9 (4.5-11.0) X10^3/uL RBC 4.49 (4.0-5.2) X10^6/uL Hgb 14.8 (12.0-16.0) g/dL Hct 42.1 (36-46) % MCV 93.8 (80-100) fL MCH 32.9 (26-34) PG MCHC 35.1 (30-36) % RDW 12.6 (11.6-14.8) % Plt Count 367 (150-400) X10^3/uL Neut % (Auto) 69.1 (50-75) % Lymph % (Auto) 19.3 L (25-40) % [place] % (Auto) 6.7 (3-14) % Eos % (Auto) 3.9 (2-4) % Baso % (Auto) 1.0 (0-2) % Neut # (Auto) 6100 (9264-2444) /uL Lymph # (Auto) 1700 (8674-5182) /uL [place] # (Auto) 600 (0-900) /uL Eos # (Auto) 400 (0-450) /uL Baso # (Auto) 100 (0-100) /uL Sodium 138 (137-145) mmol/L Potassium 3.9 (3.4-5.1) mmol/L Chloride 105 (98-107) mmol/L Carbon Dioxide 30 (22-32) mmol/L BUN 8 (7-17) mg/dL Creatinine 0.73 (0.52-1.04) mg/dL Estimated GFR > 60.0 (>60) mL/min BUN/Creatinine Ratio 11.0 (6-22) Glucose 99 (70-100) mg/dL Calcium 8.6 (8.4-10.2) mg/dL Urine Color Red Urine Appearance Cloudy Urine pH 8.5 H (4.5-8.0) Ur Specific [place] 1.015 (1.000-1.035) Urine Protein 2+ H (Negative) Urine Glucose (UA) Negative (Negative) g/dL Urine Ketones Trace H (NEGATIVE) Urine Occult Blood 3+ H (Negative) Urine Nitrate Negative (Negative) Urine Bilirubin Negative (NEGATIVE) Urine Urobilinogen 0.2 (0.2) E.U./dL Ur Leukocyte Esterase Trace H (NEGATIVE) Urine RBC >100/hpf H (0-5/HPF) Urine WBC 0-1/hpf (0-5/HPF) Ur Squamous Epith Cells 10-30 /hpf H D (0-5/HPF) Urine Bacteria Few (2-10) H (None) Ur Culture Indicated? Cult not indicated Urine Test (Negative) 07/31/21 Range/Units 16:44 WBC (4.5-11.0) X10^3/uL RBC (4.0-5.2) X10^6/uL Hgb (12.0-16.0) g/dL Hct (36-46) % MCV (80-100) fL MCH (26-34) PG MCHC (30-36) % RDW (11.6-14.8) % Plt Count (150-400) X10^3/uL Neut % (Auto) (50-75) % Lymph % (Auto) (25-40) % [place] % (Auto) (3-14) % Eos % (Auto) (2-4) % Baso % (Auto) (0-2) % Neut # (Auto) (6601-1171) /uL Lymph # (Auto) (6980-4630) /uL [place] # (Auto) (0-900) /uL Eos # (Auto) (0-450) /uL Baso # (Auto) (0-100) /uL Sodium (137-145) mmol/L Potassium (3.4-5.1) mmol/L Chloride (98-107) mmol/L Carbon Dioxide (22-32) mmol/L BUN (7-17) mg/dL Creatinine (0.52-1.04) mg/dL Estimated GFR (>60) mL/min BUN/Creatinine Ratio (6-22) Glucose (70-100) mg/dL Calcium (8.4-10.2) mg/dL Urine Color Urine Appearance Urine pH (4.5-8.0) Ur Specific [place] (1.000-1.035) Urine Protein (Negative) Urine Glucose (UA) (Negative) g/dL Urine Ketones (NEGATIVE) Urine Occult Blood (Negative) Urine Nitrate (Negative) Urine Bilirubin (NEGATIVE) Urine Urobilinogen (0.2) E.U./dL Ur Leukocyte Esterase (NEGATIVE) Urine RBC (0-5/HPF) Urine WBC (0-5/HPF) Ur Squamous Epith Cells (0-5/HPF) Urine Bacteria (None) Ur Culture Indicated? Urine Test Negative (Negative) Imaging Data US - CHILD AND FAMILY SERVICES SPECIALIST: Radiologist's Impression: Launch?[place] [address] Ultrasound Report Signed Patient: Imelda Wilder MR#: [id number] : 1980 Acct:[id number] Age/Sex: 41 / F Date of Service: 07/31/21 Loc: ED Accession Number: [id number] ?? Procedure: US pelvic complete Ordering Provider: Efe Caraballo D.O. PROCEDURE:? US PELVIC COMPLETE ? INDICATIONS:? PAIN, BLEEDING ? TECHNIQUE:? Real-time scanning was performed of the pelvic organs, with image documentation.? Additional endovaginal scanning was necessary due to incomplete visualization of the adnexal and endometrial structures by transabdominal scanning.? ? COMPARISON:? [facility], , US PELVIC COMPLETE, 07/11/2020, 8:17. ? FINDINGS:? ?? Uterus:? Uterus is anteverted and normal in size at 8.4 x 4.7 x 5.2 cm. The myometrium is heterogeneous due to the presence of fibroids.? A midline anterior intramural fibroid measures 1.4 x 1.3 x 2.1 cm.? The endometrium measures 6 mm combined thickness.? Nabothian cysts are present. ? Ovaries:? The right ovary is not seen. The left ovary measures 3.4 x 2.1 x 3.5 cm, with a calculated ovarian volume of 13 cc, seen on transabdominal images only.? A 2.6 x 1.6 x 2.5 cm simple cyst is seen in the left ovary.? No adnexal masses are seen. ? Other:? No pathologic free abdominal or pelvic fluid. ? ? IMPRESSION:? 1. No acute sonographic abnormality is seen in the pelvis. 2. Uterine fibroids.? No definite submucosal fibroid is seen. 3. Right ovary is not visualized.? Left ovary is within normal limits. ? We strive to produce accurate, complete, and clear reports of imaging services. To assist us in improving patient care, this report was composed using standard report templates and voice recognition software. Therefore, it may contain abnormal punctuation, insertions and/or omissions. Occasional wrong-word or sound-alike substitutions may occur. Though we review the report and make efforts to correct it, we do recommend that the report be read carefully in proper context to recognize any text inaccuracies. ? ? Dictated by: Giancarlo Rivas M.D. on 07/31/2021 at 20:52 ? ? Approved by: Giancarlo Rivas M.D. on 07/31/2021 at 20:57 ? MDM Narrative Medical decision making narrative: Patient with reassuring history and physical exam, vitals are stable and H&H demonstrates no sign of anemia. There is minimal if any bleeding currently and no indication for medroxyprogesterone. Abdomen is soft, pain is well controlled patient is tolerating orals. Return precautions given and questions answered to her apparent satisfaction Discharge Plan Departure Patient Disposition: Home Clinical Impression: Dysfunctional uterine bleeding, Fibroid, uterine Activity Restrictions/Additional Instructions: *You have been diagnosed with [vaginal bleeding, likely due to uterine fibroids noted on ultrasound. Your vital signs, physical exam and labs are very reassuring *What to do: *Please continue to take your regular medications as directed. [ ] New medication prescriptions sent to your pharmacy: [ ] [ ] New medication written as a paper prescription [x ] No new medications given *Please follow up with your primary care provider in 2-3 days, call for an appointment. Let them know you were seen in the Emergency Department and that we ask that you be seen in follow up. We will electronically transmit a record of today's note if your PCP is in our system *If you do not have a primary care provider please contact the [facility] Resource line at [phone]. They will ask some questions about your medical history and help get you set up with a doctor in the community. *Return to Emergency Department if you should have any new, worsening or concerning symptoms, such as [fever greater than 101 F, shaking chills, worsening pain, persistent vomiting, heavy vaginal bleeding which requires more than 1 pad per hour for multiple hours, bothersome symptoms] Prescriptions: No Action levothyroxine 137 mcg capsule 137 mcg PO DAILY 0RF ibuprofen 400 mg tablet 1 tab PO Q6H PRN (Reason: Pain, Moderate) 0RF Label Comments: TAKE 1 TABLET BY MOUTH EVERY 6 HOURS NEEDED FOR MODERATE PAIN FOR UP TO 10 DAYS epinephrine [EpiPen 2-Ant] 0.3 MG/0.3 ML auto-injector 0.3 mg SQ X1 PRN (Reason: Allergic Reaction) 0RF codeine-guaifenesin [Guaifenesin AC] 10-100 mg/5 mL liquid 5 ml PO Q6H PRN (Reason: cough) Qty: 118 0RF codeine-guaifenesin 10-100 mg/5 mL liquid 5 ml PO Q6H PRN (Reason: cough) Qty: 118 0RF ondansetron 4 mg tablet,disintegrating 4 mg PO Q8H PRN (Reason: nausea and vomiting) Qty: 14 0RF Referrals: Aviva Escobedo MD [Physician] - Maco Perkins DO [Primary Care Provider] -
--- NOTE | 2021-07-31 19:39 | DI.US.S_ITS ---
PROCEDURE: US PELVIC COMPLETE INDICATIONS: PAIN, BLEEDING TECHNIQUE: Real-time scanning was performed of the pelvic organs, with image documentation. Additional endovaginal scanning was necessary due to incomplete visualization of the adnexal and endometrial structures by transabdominal scanning. COMPARISON: [facility], , US PELVIC COMPLETE, 07/11/2020, 8:17. FINDINGS: Uterus: Uterus is anteverted and normal in size at 8.4 x 4.7 x 5.2 cm. The myometrium is heterogeneous due to the presence of fibroids. A midline anterior intramural fibroid measures 1.4 x 1.3 x 2.1 cm. The endometrium measures 6 mm combined thickness. Nabothian cysts are present. Ovaries: The right ovary is not seen. The left ovary measures 3.4 x 2.1 x 3.5 cm, with a calculated ovarian volume of 13 cc, seen on transabdominal images only. A 2.6 x 1.6 x 2.5 cm simple cyst is seen in the left ovary. No adnexal masses are seen. Other: No pathologic free abdominal or pelvic fluid. IMPRESSION: 1. No acute sonographic abnormality is seen in the pelvis. 2. Uterine fibroids. No definite submucosal fibroid is seen. 3. Right ovary is not visualized. Left ovary is within normal limits. We strive to produce accurate, complete, and clear reports of imaging services. To assist us in improving patient care, this report was composed using standard report templates and voice recognition software. Therefore, it may contain abnormal punctuation, insertions and/or omissions. Occasional wrong-word or sound-alike substitutions may occur. Though we review the report and make efforts to correct it, we do recommend that the report be read carefully in proper context to recognize any text inaccuracies. Dictated by: Giancarlo Rivas M.D. on 07/31/2021 at 20:52 Approved by: Giancarlo Rivas M.D. on 07/31/2021 at 20:57
--- NOTE | 2021-07-31 19:49 | PC.NURSE ---
vaginal bleeding with clots
[2021-07-31 20:33] VITALS: BP 129/60; PULSE 93; RESP 18; O2SAT 96
[2021-07-31 20:34] VITALS: PULSE 90; O2SAT 96
[2021-07-31] MEDS: KETOROLAC 30 MG/ML VIAL 15 MG IV (20:39)
[2021-07-31 21:00] VITALS: PULSE 80; O2SAT 97
[2021-07-31 21:26] VITALS: BP 118/58; PULSE 90; O2SAT 97
--- NOTE | 2021-07-31 21:29 | PC.NURSE ---
started in triage prior to 190
== END 2021-07-31 21:30 | disposition home or self-care (01) ==
PROVIDERS: Emergency Medicine; Student in an Organized Health Care Education/Training Program; Emergency Provider Emergency Medicine; PCP Family Medicine
DX: N93.8 Other specified abnormal uterine and vaginal bleeding (principal); D25.1 Intramural leiomyoma of uterus
CPT/HCPCS: 76830; 76856; 80048; 81001; 81025; 85025; 96374; 99283; 99284; J1885

== ENCOUNTER 2021-08-15 18:05 | Emergency (ER) | payer MEDICAID, OTHER, SELFPAY ==
[2021-08-15 18:09] VITALS: BP 157/92; PULSE 94; RESP 18; TEMP 36.5; O2SAT 99
--- NOTE | 2021-08-15 18:16 | DI.RAD.S_ITS ---
PROCEDURE: XR CHEST 2V INDICATIONS: cough, runny nose, upper respiratory complaints TECHNIQUE: 2 views of the chest were acquired. COMPARISON: [facility], CR, XR CHEST 2V, 04/23/2021, 19:29. FINDINGS: Surgical changes and devices: None. Lungs and pleura: Lungs are clear. No pleural effusions or pneumothorax. Mediastinum: Mediastinal contours are normal. Heart size is normal. Bones and chest wall: No suspicious bony abnormalities. Soft tissues appear unremarkable. IMPRESSION: No acute process. Dictated by: Esteban Cooper M.D. on 08/15/2021 at 18:32 Approved by: Esteban Cooper M.D. on 08/15/2021 at 18:32
--- NOTE | 2021-08-15 18:23 | ED.SKABFB ---
HPI - Skin/Abscess/Foreign Bdy General Chief complaint: Skin/Abscess/Foreign Body Stated complaint: Lump on back of head Time Seen by Provider: 08/15/21 18:16 Source: patient Mode of arrival: Ambulatory History of Present Illness HPI narrative: 41F daily smoker with history of fibroids, hypothyroid, and anxiety presents with her significant other and a chief complaint of a few months of upper respiratory complaints including runny nose, nasal congestion, head congestion, dry cough presents with a small painful lump on her scalp that she just noticed today. She denies any trauma or injury. She has had no fever or chills. She denies GI symptoms such as nausea, vomiting or diarrhea. She states that she has been having symptoms off and on ever since having COVID in April. She saw her primary care provider a week or so ago and was given little information answered decision to come see us. She denies exposure to ill persons. Related Data Home Medications Medication Instructions Recorded Confirmed epinephrine 0.3 mg/0.3 mL 0.3 mg SQ X1 PRN 01/13/18 08/14/20 injection, auto-injector (EpiPen 2-Ant) ibuprofen 400 mg tablet 1 tab PO Q6H PRN 01/13/18 08/14/20 levothyroxine 137 mcg capsule 137 mcg PO DAILY 05/06/19 08/14/20 Previous Rx's Medication Instructions Recorded codeine 10 mg-guaifenesin 100 mg/5 5 ml PO Q6H PRN #118 ml 11/06/20 mL oral liquid (Guaifenesin AC) codeine 10 mg-guaifenesin 100 mg/5 5 ml PO Q6H PRN #118 ml 03/16/21 mL oral liquid ondansetron 4 mg disintegrating 4 mg PO Q8H PRN #14 tab 03/16/21 tablet doxycycline hyclate 100 mg tablet 100 mg PO BID #20 tab 08/15/21 Allergies Allergy/AdvReac Type Severity Reaction Status Date / Time Iodinated Contrast Media Allergy Severe Anaphylaxis Verified 08/14/20 07:57 shellfish derived Allergy Severe ALL Verified 08/14/20 07:57 SEAFOOD, POSS ANAPHYLXIS R/T EXPOSURE @ WORK iodine Allergy Mild CONTRAST - Verified 08/14/20 07:57 BODY GOES NUMB Review of Systems Review of Systems Narrative: GENERAL: See HPI HEENT: See HPI RESPIRATORY: See HPI CARDIOVASCULAR: Denies chest pain, palpitations, orthopnea, edema, GASTROINTESTINAL: Denies nausea, vomiting, abdominal pain, diarrhea, constipation, melena. : Denies dysuria, frequency, incontinence, hematuria, urinary retention. MUSCULOSKELETAL: denies weakness, joint pain, or bony pain SKIN: See HPI NEUROLOGIC: Denies weakness, headache, numbness, change in speech, confusion, seizures, incoordination. PSYCHIATRIC: No concerning psychosocial issues. 12 point review of systems is negative except for those stated above Patient History Medical History Acute bronchitis Anxiety Chest wall pain Family history of diabetes mellitus Fatigue Hypothyroidism Postoperative abdominal pain Pyelonephritis Respiratory failure Upper respiratory infection Uterine fibroid (~2020) UTI (urinary tract infection) during Viral illness Vomiting and diarrhea Surgical History Anesthesia History of cholecystectomy History of dilatation and curettage Status post delivery (02/02/13) Status post knee surgery Status post tubal ligation (06/17/16) Family History Father Diabetes mellitus History of heart disease Hypertension Grandmother Cancer Diabetes mellitus History of heart disease Social History Smoking Status: Current some day smoker alcohol intake: never Smoking Status: Current some day smoker tobacco type: cigarettes alcohol intake frequency: a few times a month Substance Use Type: does not use Exam Narrative Exam Narrative: GENERAL: [41] year old patient appears stated age. Well-developed patient, in mild distress. HEAD: Atraumatic. Small pea sized, freely mobile mass on left parietal region. No erythema or fluctuance, no surrounding erythema or induration. Most consistent with reactive lymph node EYES: Pupils equal round and reactive. Extraocular motions intact. No scleral icterus. No injection or drainage. ENT: Nose without bleeding, purulent drainage. Throat without erythema, tonsillar hypertrophy or exudate. Moderate post nasal drip. Airway patent. NECK: Trachea midline. Non tender CARDIOVASCULAR: Regular rate and rhythm without murmurs, gallops, or rubs. RESPIRATORY: Clear to auscultation. Breath sounds equal bilaterally. No wheezes, rales, or rhonchi. GASTROINTESTINAL: Abdomen soft, non-tender, nondistended. EXTREMITIES: No edema or joint tenderness. BACK: Nontender without deformity or crepitance. No flank tenderness. NEURO: AOx3. SKIN: No rash or erythema of visible areas Initial Vital Signs Initial Vital Signs: Vital Signs Temperature 97.7 F 08/15/21 18:09 Pulse Rate 94 H 08/15/21 18:09 Respiratory Rate 18 08/15/21 18:09 Blood Pressure 157/92 H 08/15/21 18:09 Pulse Oximetry 99 08/15/21 18:09 Course Orders Ordered: ED Orders 08/15/21 18:16 Chest [XR chest 2V] Stat Vital Signs Vital signs: Vital Signs - 8 hr 08/15/21 18:09 08/15/21 19:02 Temperature 97.7 F Pulse Rate 94 H 67 Respiratory Rate 18 18 Blood Pressure 157/92 H 110/59 L Pulse Oximetry 99 98 MDM - Skin/Abscess/Foreign Bdy Imaging Data Chest x-ray: Radiologist's Impression: [place] [address] XRay Report Signed Patient: Imelda Wilder MR#: [id number] : 1980 Acct:[id number] Age/Sex: 41 / F Date of Service: 08/15/21 Loc: ED Accession Number: [id number] ?? Procedure: XR chest 2V Ordering Provider: Efe Caraballo D.O. PROCEDURE:? XR CHEST 2V ? INDICATIONS:? cough, runny nose, upper respiratory complaints ? TECHNIQUE:? 2 views of the chest were acquired.? ? COMPARISON:? [facility], , XR CHEST 2V, 04/23/2021, 19:29. ? FINDINGS:? ? Surgical changes and devices:? None.? ? Lungs and pleura:? Lungs are clear.? No pleural effusions or pneumothorax.? ? Mediastinum:? Mediastinal contours are normal.? Heart size is normal.? ? Bones and chest wall:? No suspicious bony abnormalities.? Soft tissues appear unremarkable.? ? IMPRESSION:? No acute process. ? ? Dictated by: Esteban Cooper M.D. on 08/15/2021 at 18:32 ? ? Approved by: Esteban Cooper M.D. on 08/15/2021 at 18:32 ? Discharge Plan Departure Patient Disposition: Home Clinical Impression: Reactive lymphadenopathy Instructions: DI for Viral Upper Respiratory Infection -- Adult Activity Restrictions/Additional Instructions: *You have been diagnosed with [reactive lymphadenopathy. As we discussed your symptoms are likely due to a combination of things such as post COVID, seasonal allergies, possible viral upper respiratory infection and potentially even the mold you mentioned in your attic. *What to do: *Please continue to take your regular medications as directed. [ x] New medication prescriptions sent to your pharmacy: [ [facility]] [ ] New medication written as a paper prescription [ ] No new medications given *Please consider taking over the counter antihistamines such as Mireya/Zyrtec and decongestants such as phenylephrine or sudafed *Given the history of your symptoms and the fact that you have a history of smoking we will try a course of antibiotics *Please follow up with your primary care provider in 2-3 days, call for an appointment. Let them know you were seen in the Emergency Department and that we ask that you be seen in follow up. We will electronically transmit a record of today's note if your PCP is in our system *If you do not have a primary care provider please contact the [facility] Resource line at [phone]. They will ask some questions about your medical history and help get you set up with a doctor in the community. *Return to Emergency Department if you should have any new, worsening or concerning symptoms, such as [fever greater than 101 F, shaking chills, worsening pain, persistent vomiting or other bothersome symptoms] Prescriptions: New doxycycline hyclate 100 mg tablet 100 mg PO BID Qty: 20 0RF No Action levothyroxine 137 mcg capsule 137 mcg PO DAILY 0RF ibuprofen 400 mg tablet 1 tab PO Q6H PRN (Reason: Pain, Moderate) 0RF Label Comments: TAKE 1 TABLET BY MOUTH EVERY 6 HOURS NEEDED FOR MODERATE PAIN FOR UP TO 10 DAYS epinephrine [EpiPen 2-Ant] 0.3 MG/0.3 ML auto-injector 0.3 mg SQ X1 PRN (Reason: Allergic Reaction) 0RF codeine-guaifenesin [Guaifenesin AC] 10-100 mg/5 mL liquid 5 ml PO Q6H PRN (Reason: cough) Qty: 118 0RF codeine-guaifenesin 10-100 mg/5 mL liquid 5 ml PO Q6H PRN (Reason: cough) Qty: 118 0RF ondansetron 4 mg tablet,disintegrating 4 mg PO Q8H PRN (Reason: nausea and vomiting) Qty: 14 0RF Referrals: Maco Perkins DO [Primary Care Provider] -
--- NOTE | 2021-08-15 18:42 | PC.NURSE ---
Baby given two containers of Pedialyte, tolerated well.
--- NOTE | 2021-08-15 18:47 | PC.NURSE ---
Pt c/o sore throat, sinus/ear discomfort, chills and general malaise x 3 days. States she had Covid in April.
[2021-08-15 19:02] VITALS: BP 110/59; PULSE 67; RESP 18; O2SAT 98
== END 2021-08-15 19:02 | disposition home or self-care (01) ==
PROVIDERS: Emergency Provider Emergency Medicine; PCP Family Medicine
DX: R59.0 Localized enlarged lymph nodes (principal); F17.210 Nicotine dependence, cigarettes, uncomplicated
CPT/HCPCS: 71046; 99281; 99283

== ENCOUNTER 2021-08-28 21:29 | Emergency (ER) | payer MEDICAID, OTHER, SELFPAY ==
[2021-08-28] VITALS (8 sets, daily range): BP systolic 124–146; BP diastolic 75–80; PULSE 76–100; RESP 14–22; TEMP 36.8; O2SAT 91–96; BMI 30.1
--- NOTE | 2021-08-28 21:38 | DI.RAD.S_ITS ---
PROCEDURE: XR CHEST 1V INDICATIONS: chest pain TECHNIQUE: One view of the chest was acquired. COMPARISON: [facility], CR, XR CHEST 2V, 08/15/2021, 18:15. FINDINGS: Surgical changes and devices: None. Lungs and pleura: Lungs are clear. No pleural effusions or pneumothorax. Mediastinum: Mediastinal contours appear normal. Heart size is normal. Bones and chest wall: No suspicious bony lesions. Overlying soft tissues appear unremarkable. IMPRESSION: 1. No acute cardiopulmonary disease. Dictated by: Vasyl Magana M.D. on 08/28/2021 at 23:24 Approved by: Vasyl Magana M.D. on 08/28/2021 at 23:25
[2021-08-28 21:58] LABS: Add Manual Diff / Slide Review NO; Basophils Absolute Auto 100 /uL (0-100); Basophils Percent Auto 0.7 % (0-2); Eosinophils Absolute Auto 500 /uL (0-450); Eosinophils Percent Auto 5.4 % (2-4); Hematocrit 41.4 % (36-46); Hemoglobin 14.6 g/dL (12.0-16.0); Lymphocytes Absolute Auto 2200 /uL (1100-4500); Lymphocytes Percent Auto 22.4 % (25-40); Mean Corpuscular HGB Conc 35.4 % (30-36); Mean Corpuscular Hemoglobin 32.5 PG (26-34); Mean Corpuscular Volume 91.9 fL (80-100); Monocytes Absolute Auto 900 /uL (0-900); Monocytes Percent Auto 8.9 % (3-14); Neutrophils Absolute Auto 6000 /uL (1500-7000); Neutrophils Percent Auto 62.6 % (50-75); Platelet Count 334 X10^3/uL (150-400); White Blood Cell Count 9.6 X10^3/uL (4.5-11.0)
[2021-08-28 22:09] LABS: Alanine Aminotransferase 32 IU/L (<35); Albumin 4.3 g/dL (3.5-5.0); Albumin Globulin Ratio 1.3 (1.0-2.8); Alkaline Phosphatase 69 U/L (38-126); Aspartate Aminotransferase 29 IU/L (14-36); BUN Creatinine Ratio 13.4 (6-22); Bilirubin Total 0.4 mg/dL (0.2-1.3); Blood Urea Nitrogen 9 mg/dL (7-17); Calcium 8.6 mg/dL (8.4-10.2); Carbon Dioxide 24 mmol/L (22-32); Chloride 107 mmol/L (98-107); Creatine Kinase 53 U/L (30-135); Estimated Glomerular Filt Rate > 60.0 mL/min (>60); Globulin 3.3 g/dL (1.7-4.1); Glucose 106 mg/dL (70-100); HEMOLYSIS < 15 (0-50); Lipase 100 U/L (23-300); Potassium 3.6 mmol/L (3.4-5.1); Sodium 140 mmol/L (137-145); Total Protein 7.6 g/dL (6.3-8.2)
[2021-08-28 22:19] LABS: Troponin I < 0.012 ng/mL (0.01-0.034)
--- NOTE | 2021-08-28 23:23 | ED_ITS ---
HPI - Chest Pain General Chief Complaint: Chest Pain Stated Complaint: chest pressure Time Seen by Provider: 08/28/21 21:53 Source: patient Mode of arrival: Ambulatory Limitations: no limitations History of Present Illness HPI narrative: The patient presents with central sternal a left upper chest wall pain this st arted last night. She complains dyspnea. She has no productive cough, no hemoptysis. She is a former smoker. She has no RAD. She was seen here about 1 week ago with URI symptoms. Chest x-ray was clear. Adenopathy was noted. She has a recent history of COVID-19. She was started on doxycycline. He has no history of heart disease or chronic respiratory disease. She has no leg pain. She has no history of PE. Related Data Home Medications Medication Instructions Recorded Confirmed epinephrine 0.3 mg/0.3 mL 0.3 mg SQ X1 PRN 01/13/18 08/14/20 injection, auto-injector (EpiPen 2-Ant) ibuprofen 400 mg tablet 1 tab PO Q6H PRN 01/13/18 08/14/20 levothyroxine 137 mcg capsule 137 mcg PO DAILY 05/06/19 08/14/20 Previous Rx's Medication Instructions Recorded codeine 10 mg-guaifenesin 100 mg/5 5 ml PO Q6H PRN #118 ml 11/06/20 mL oral liquid (Guaifenesin AC) codeine 10 mg-guaifenesin 100 mg/5 5 ml PO Q6H PRN #118 ml 03/16/21 mL oral liquid ondansetron 4 mg disintegrating 4 mg PO Q8H PRN #14 tab 03/16/21 tablet doxycycline hyclate 100 mg tablet 100 mg PO BID #20 tab 08/15/21 Allergies Allergy/AdvReac Type Severity Reaction Status Date / Time Iodinated Contrast Media Allergy Severe Anaphylaxis Verified 08/28/21 21:41 shellfish derived Allergy Severe ALL Verified 08/28/21 21:41 SEAFOOD, POSS ANAPHYLXIS R/T EXPOSURE @ WORK iodine Allergy Mild CONTRAST - Verified 08/28/21 21:41 BODY GOES NUMB Review of Systems Constitutional Constitutional: Denies body ache(s), Denies chills, Reports fatigue, Denies fever(s), Denies malaise and Reports weakness ENT Ears, Nose, Mouth, and Throat: Denies vertigo, Denies dizziness, Denies mouth lesions, Denies neck pain, Denies sinus pressure and Denies sore throat Cardiovascular Cardiovascular: Reports as per HPI, Denies syncope and Reports dyspnea Respiratory Respiratory: Denies chest congestion, Denies cough, Reports pain on inspiration and Reports dyspnea Gastrointestinal Gastrointestinal: Denies abdominal pain and Denies nausea Genitourinary Genitourinary: Denies dysuria Musculoskeletal Musculoskeletal: Denies arthralgias, Denies back pain and Denies neck pain Integumentary/Breasts Skin/Breast: Denies change in pigmentation, Denies lesions and Denies rash Neurologic Neurologic: Denies confusion, Denies vertigo, Denies dizziness, Denies syncope and Reports weakness Psychiatric Psychiatric: Denies anxiety, Denies confusion and Denies depression Endocrine Endocrine: Reports fatigue and Denies flushing Hematologic/Lymphatic On Anticoagulants: No Patient History Medical History Acute bronchitis Anxiety Chest wall pain Family history of diabetes mellitus Fatigue Hypothyroidism Postoperative abdominal pain Pyelonephritis Respiratory failure Upper respiratory infection Uterine fibroid (~2020) UTI (urinary tract infection) during Viral illness Vomiting and diarrhea Surgical History Anesthesia History of cholecystectomy History of dilatation and curettage Status post delivery (02/02/13) Status post knee surgery Status post tubal ligation (06/17/16) Family History Father Diabetes mellitus History of heart disease Hypertension Grandmother Cancer Diabetes mellitus History of heart disease Social History Smoking Status: Former smoker alcohol intake: never Smoking Status: Former smoker tobacco type: cigarettes alcohol intake frequency: a few times a month Substance Use Type: does not use Exam Initial Vital Signs Initial Vital Signs: Vital Signs Temperature 98.3 F 08/28/21 21:30 Pulse Rate 93 H 08/28/21 21:30 Respiratory Rate 20 08/28/21 21:30 Blood Pressure 146/80 H 08/28/21 21:30 Pulse Oximetry 96 08/28/21 21:30 Const General: cooperative, comfortable, well developed and well groomed [facility] Head: normocephalic and atraumatic Face and sinus: normal facial exam and sinuses nontender Mouth: oral mucosae normal Throat: posterior oropharynx normal Eyes General: appearance normal, both eyes and all related structures Neck Neck: normal visual inspection and No lymphadenopathy Chest Chest: tenderness (In the central sternal and left upper chest wall.) Resp Effort & Inspection: normal respiratory effort Auscultation: clear to auscultation bilaterally Cardio Rate: regular rate Rhythm: regular rhythm Heart Sounds: S1 normal, S2 normal, no click, no gallops and no murmurs GI Inspection: normal to inspection Palpation: soft, No mass and No tender Auscultation: normal bowel sounds Back/Spine/Pelvis Back: normal to inspection and No back tenderness Skin General: no rashes or lesions noted Neuro General: patient alert, patient awake, patient oriented x3 and no focal motor deficits Extrem General: normal to inspection, full ROM, no pedal edema and no calf tenderness Psych Mental Status: mental status grossly normal Course Course Course Narrative: Her chest x-ray is clear. Cardiovascular evaluation is negative. D-dimer is negative. Toradol has improved chest wall pain. She is still taking the doxycycline prescribed at her last visit. Orders Ordered: ED Orders 08/28/21 21:38 XR chest 1V Stat EKG-12 Lead Stat 08/28/21 21:50 Complete Blood Count AUTO DIFF Stat Comprehensive Metabolic Panel Stat D Dimer Stat Lipase Stat Magnesium Stat Troponin & CK Cardiac Panel Stat Discontinued Medications Ketorolac Tromethamine (Ketorolac 30 Mg/Ml Vial) 30 mg IV NOW ONE Stop: 08/28/21 23:28 Last Admin: 08/28/21 23:39 Dose: 30 mg Documented by: AUDONNIE Vital Signs Vital signs: Vital Signs - 8 hr 08/28/21 21:30 08/28/21 21:32 08/28/21 21:33 Temperature 98.3 F Pulse Rate 93 H 100 H 93 H Respiratory Rate 20 Blood Pressure 146/80 H 146/80 H Pulse Oximetry 96 91 95 08/28/21 22:00 08/28/21 22:30 08/28/21 23:00 Temperature Pulse Rate 82 85 77 Respiratory Rate 22 14 18 Blood Pressure Pulse Oximetry 94 94 95 08/28/21 23:06 08/28/21 23:30 08/29/21 00:00 Temperature Pulse Rate 76 80 65 Respiratory Rate 22 21 Blood Pressure 126/75 124/78 116/73 Pulse Oximetry 96 96 97 08/29/21 00:30 08/29/21 00:59 08/29/21 01:00 Temperature Pulse Rate 63 61 Respiratory Rate 19 20 Blood Pressure 112/65 101/57 L Pulse Oximetry 97 96 MDM - Chest Pain Lab Data Result diagrams: 08/28/21 21:50 08/28/21 21:50 Labs: Lab Results 08/28/21 08/28/21 08/28/21 Range/Units 21:50 21:50 21:50 WBC 9.6 (4.5-11.0) X10^3/uL RBC 4.50 (4.0-5.2) X10^6/uL Hgb 14.6 (12.0-16.0) g/dL Hct 41.4 (36-46) % MCV 91.9 (80-100) fL MCH 32.5 (26-34) PG MCHC 35.4 (30-36) % RDW 12.0 (11.6-14.8) % Plt Count 334 (150-400) X10^3/uL Neut % (Auto) 62.6 (50-75) % Lymph % (Auto) 22.4 L (25-40) % [place] % (Auto) 8.9 (3-14) % Eos % (Auto) 5.4 H (2-4) % Baso % (Auto) 0.7 (0-2) % Neut # (Auto) 6000 (7318-9045) /uL Lymph # (Auto) 2200 (4329-5579) /uL [place] # (Auto) 900 (0-900) /uL Eos # (Auto) 500 H (0-450) /uL Baso # (Auto) 100 (0-100) /uL D-Dimer < 200 (<230) ng/mL Sodium 140 (137-145) mmol/L Potassium 3.6 (3.4-5.1) mmol/L Chloride 107 (98-107) mmol/L Carbon Dioxide 24 (22-32) mmol/L BUN 9 (7-17) mg/dL Creatinine 0.67 (0.52-1.04) mg/dL Estimated GFR > 60.0 (>60) mL/min BUN/Creatinine Ratio 13.4 (6-22) Glucose 106 H (70-100) mg/dL Calcium 8.6 (8.4-10.2) mg/dL Magnesium 2.0 (1.6-2.3) mg/dL Total Bilirubin 0.4 (0.2-1.3) mg/dL AST 29 (14-36) IU/L ALT 32 (<35) IU/L Alkaline Phosphatase 69 (38-126) U/L Total Creatine Kinase 53 (30-135) U/L CK-MB (CK-2) TNP CK-MB (CK-2) Rel Index TNP Troponin I < 0.012 (0.01-0.034) ng/mL Total Protein 7.6 (6.3-8.2) g/dL Albumin 4.3 (3.5-5.0) g/dL Globulin 3.3 (1.7-4.1) g/dL Albumin/Globulin Ratio 1.3 (1.0-2.8) Lipase 100 (23-300) U/L Discharge Plan Departure Patient Disposition: Home Clinical Impression: Anterior chest wall pain Instructions: DI for Atypical Chest Pain Activity Restrictions/Additional Instructions: Your heart and lungs have been checked thoroughly. Your heart and lungs are healthy. The pain appears to be coming from the muscles and ribs in your chest wall. Continue the doxycycline recently prescribed for infection. Advil 3 tabs every 6 hours for recurrent pain. If you havefever, cough, or increased chest discomfort return here. Prescriptions: No Action levothyroxine 137 mcg capsule 137 mcg PO DAILY 0RF ibuprofen 400 mg tablet 1 tab PO Q6H PRN (Reason: Pain, Moderate) 0RF Label Comments: TAKE 1 TABLET BY MOUTH EVERY 6 HOURS NEEDED FOR MODERATE PAIN FOR UP TO 10 DAYS epinephrine [EpiPen 2-Ant] 0.3 MG/0.3 ML auto-injector 0.3 mg SQ X1 PRN (Reason: Allergic Reaction) 0RF doxycycline hyclate 100 mg tablet 100 mg PO BID Qty: 20 0RF codeine-guaifenesin [Guaifenesin AC] 10-100 mg/5 mL liquid 5 ml PO Q6H PRN (Reason: cough) Qty: 118 0RF codeine-guaifenesin 10-100 mg/5 mL liquid 5 ml PO Q6H PRN (Reason: cough) Qty: 118 0RF ondansetron 4 mg tablet,disintegrating 4 mg PO Q8H PRN (Reason: nausea and vomiting) Qty: 14 0RF Referrals: Maco Perkins, [Primary Care Provider] -
[2021-08-28 23:39] LABS: D Dimer < 200 ng/mL (<230)
[2021-08-28] MEDS: KETOROLAC 30 MG/ML VIAL IV (23:39)
[2021-08-29] VITALS: BP 116/73; PULSE 65; RESP 21; O2SAT 97
[2021-08-29 00:30] VITALS: BP 112/65; PULSE 63; RESP 19; O2SAT 97
[2021-08-29 00:59] VITALS: PULSE 61; RESP 20; O2SAT 96
[2021-08-29 01:00] VITALS: BP 101/57
== END 2021-08-29 01:08 | disposition home or self-care (01) ==
PROVIDERS: Emergency Provider Emergency Medicine; PCP Family Medicine
DX: R07.89 Other chest pain (principal); Z87.891 Personal history of nicotine dependence
CPT/HCPCS: 36415; 71045; 80053; 82550; 83690; 83735; 84484; 85025; 85379; 93005; 93010; 96374; 99284; J1885

== ENCOUNTER 2021-09-27 23:33 | Emergency (ER) | payer MEDICAID, OTHER, SELFPAY ==
--- NOTE | 2021-09-27 23:38 | DI.RAD.S_ITS ---
PROCEDURE: XR TIBIA FUBULA RT 2V INDICATIONS: prox fibula pain after fall TECHNIQUE: 2 views of the tibia and fibula were acquired. COMPARISON: [facility], CR, XR TIBIA FIBULA LT 2V, 05/10/2018, 2:00. FINDINGS: Bones: There is a mildly displaced fracture through the lateral malleolus as seen on the concurrent study of the ankle. There is minimal widening of the ankle mortise laterally which may reflect ligamentous injury. There is a curvilinear lucency in the fibular neck. Soft tissues: No suspicious soft tissue calcifications or masses. IMPRESSION: 1. Mildly displaced fracture of the lateral malleolus as seen on the concurrent study of the ankle. 2. No displaced fracture of the proximal fibula. There is a curvilinear lucency in the neck of the fibula which may represent a nondisplaced fracture. Further evaluation may be obtained with CT if clinically indicated. 3. Small knee joint effusion. Dictated by: Vasyl Magana M.D. on 09/28/2021 at 0:52 Approved by: Vasyl Magana M.D. on 09/28/2021 at 0:55
--- NOTE | 2021-09-27 23:38 | DI.RAD.S_ITS ---
PROCEDURE: XR ANKLE RT MIN 3V INDICATIONS: pain after fall TECHNIQUE: 3 views of the ankle were acquired. COMPARISON: [facility], , ANKLE 3 VIEWS RIGHT, 05/08/2017, 22:58. FINDINGS: Bones: There is a mildly displaced fracture of the lateral malleolus. Minimal widening of the lateral ankle mortise is demonstrated. No suspicious bony lesions. Soft tissues: There is periarticular soft tissue swelling laterally. There is a suspected tibiotalar joint effusion. Achilles tendon appears grossly intact. IMPRESSION: 1. Mildly displaced fracture of the lateral malleolus. 2. Slight widening of the ankle mortise laterally suggesting ligamentous injury. Dictated by: Vasyl Magana M.D. on 09/28/2021 at 0:50 Approved by: Vasyl Magana M.D. on 09/28/2021 at 0:52
--- NOTE | 2021-09-27 23:40 | ED.GENADULT ---
HPI - General Adult General Chief complaint: Extremity Injury, Lower Stated complaint: rolled ankle, possible fracture Time Seen by Provider: 09/27/21 23:36 Source: patient and EMS Mode of arrival: EMS History of Present Illness HPI narrative: 41-year-old female who is brought in by EMS for evaluation of a right ankle injury. Supported by EMS when the patient that she was running and had a twisting injury. She is complaining of right knee pain and also right ankle pain. She was placed in a pillow splint by EMS prior to arrival. She reports most of her discomfort in her right ankle. No other injuries from the event. Related Data Home Medications Medication Instructions Recorded Confirmed epinephrine 0.3 mg/0.3 mL 0.3 mg SQ X1 PRN 01/13/18 09/11/21 injection, auto-injector (EpiPen 2-Ant) ibuprofen 400 mg tablet 1 tab PO Q6H PRN 01/13/18 09/11/21 levothyroxine 137 mcg capsule 137 mcg PO DAILY 05/06/19 09/11/21 Previous Rx's Medication Instructions Recorded codeine 10 mg-guaifenesin 100 mg/5 5 ml PO Q6H PRN #118 ml 11/06/20 mL oral liquid (Guaifenesin AC) codeine 10 mg-guaifenesin 100 mg/5 5 ml PO Q6H PRN #118 ml 03/16/21 mL oral liquid ondansetron 4 mg disintegrating 4 mg PO Q8H PRN #14 tab 03/16/21 tablet doxycycline hyclate 100 mg tablet 100 mg PO BID #20 tab 08/15/21 alprazolam 0.5 mg tablet (Xanax) 0.5 mg PO DAILY #1 tab 09/05/21 Allergies Allergy/AdvReac Type Severity Reaction Status Date / Time Iodinated Contrast Media Allergy Severe Anaphylaxis Verified 09/11/21 08:37 shellfish derived Allergy Severe ALL Verified 09/11/21 08:37 SEAFOOD, POSS ANAPHYLXIS R/T EXPOSURE @ WORK iodine Allergy Mild CONTRAST - Verified 09/11/21 08:37 BODY GOES NUMB Review of Systems Constitutional Constitutional: Reports system reviewed and no additional complaints, except as documented Musculoskeletal Musculoskeletal: Reports system reviewed and no additional complaints, except as documented and Reports as per HPI Integumentary/Breasts Skin/Breast: Reports system reviewed and no additional complaints, except as documented and Reports as per HPI Neurologic Neurologic: Reports system reviewed and no additional complaints, except as documented Patient History Medical History Acute bronchitis Anxiety Chest wall pain Family history of diabetes mellitus Fatigue Hypothyroidism Postoperative abdominal pain Pyelonephritis Respiratory failure Upper respiratory infection Uterine fibroid (~2020) UTI (urinary tract infection) during Viral illness Vomiting and diarrhea Surgical History Anesthesia History of cholecystectomy History of dilatation and curettage Status post delivery (02/02/13) Status post knee surgery Status post tubal ligation (06/17/16) Family History Father Diabetes mellitus History of heart disease Hypertension Grandmother Cancer Diabetes mellitus History of heart disease Social History Smoking Status: Former smoker alcohol intake: never Smoking Status: Former smoker tobacco type: cigarettes alcohol intake frequency: a few times a month Substance Use Type: does not use Exam Initial Vital Signs Initial Vital Signs: Vital Signs Temperature 97.6 F 09/27/21 23:43 Pulse Rate 106 H 09/27/21 23:43 Respiratory Rate 18 09/27/21 23:43 Blood Pressure 130/91 H 09/27/21 23:43 Pulse Oximetry 91 09/27/21 23:43 HENMT Head: normal to inspection and normocephalic Cardio Pulses: dorsalis pedis present on the right Skin General: no rashes or lesions noted Neuro General: patient alert, patient awake and moves all extremities Extrem Other: Patient does have tenderness to palpation throughout her right ankle med specifically in the lateral aspect. Her foot is unremarkable. She does have some mild discomfort at the proximal fibula on the right. Procedures Orthopedic Splinting/Casting Injury #1: Side: right Lower Extremity Injury Location: upper leg Lower Extremity Immobilizer: boot orthosis Other Orthopedic Equipment: crutches Post splinting neuro exam: no change Post splinting vascular exam: no change Placed by: Nursing Course Orders Ordered: ED Orders 09/27/21 23:38 XR ankle RT min 3V Stat XR tibia fibula RT 2V Stat Discontinued Medications Hydrocodone Bitart/Acetaminophen (Hydrocodone/Acet 5/325 Prepack) 1 bottle MISC SEEINSTR ONE Stop: 09/28/21 01:20 Last Admin: 09/28/21 01:29 Dose: 1 bottle Documented by: ROSA Vital Signs Vital signs: Vital Signs - 8 hr 09/27/21 23:43 09/28/21 00:00 09/28/21 00:30 Temperature 97.6 F Pulse Rate 109 H 105 H 100 H Respiratory Rate 16 20 15 Blood Pressure 130/91 H 122/87 113/65 Pulse Oximetry 94 93 96 09/28/21 01:00 09/28/21 01:30 Temperature Pulse Rate 85 92 H Respiratory Rate 21 16 Blood Pressure 109/55 L 112/75 Pulse Oximetry 93 95 Medical Decision Making Imaging Data Extremity x-ray #1: Radiologist's Impression: [address] [address] XRay Report Signed Patient: Imelda Wilder MR#: [id number] : 1980 Acct:[id number] Age/Sex: 41 / F Date of Service: 09/27/21 Loc: ED Accession Number: [id number] ?? Procedure: XR ankle RT min 3V Ordering Provider: Jamie Coates D.O. PROCEDURE:? XR ANKLE RT MIN 3V ? INDICATIONS:? pain after fall ? TECHNIQUE:? 3 views of the ankle were acquired.? ? COMPARISON:? [facility], , ANKLE 3 VIEWS RIGHT, 05/08/2017, 22:58. ? FINDINGS:? ? Bones:? There is a mildly displaced fracture of the lateral malleolus.? Minimal widening of the lateral ankle mortise is demonstrated.? No suspicious bony lesions.? ? Soft tissues:? There is periarticular soft tissue swelling laterally.? There is a suspected tibiotalar joint effusion.? Achilles tendon appears grossly intact.? ? IMPRESSION:? ? 1. Mildly displaced fracture of the lateral malleolus. ? 2. Slight widening of the ankle mortise laterally suggesting ligamentous injury. ? ? Dictated by: Vasyl Magana M.D. on 09/28/2021 at 0:50 ? ? Approved by: Vasyl Magana M.D. on 09/28/2021 at 0:52?? Extremity x-ray #2: Radiologist's Impression: [address] [address] XRay Report Signed Patient: Imelda Wilder MR#: [id number] : 1980 Acct:[id number] Age/Sex: 41 / F Date of Service: 09/27/21 Loc: ED Accession Number: [id number] ?? Procedure: XR tibia fibula RT 2V Ordering Provider: Jamie Coaets D.O. PROCEDURE:? XR TIBIA FUBULA RT 2V ? INDICATIONS:? prox fibula pain after fall ? TECHNIQUE:? 2 views of the tibia and fibula were acquired.? ? COMPARISON:? [facility], CR, XR TIBIA FIBULA LT 2V, 05/10/2018, 2:00. ? FINDINGS:? ? Bones:? There is a mildly displaced fracture through the lateral malleolus as seen on the concurrent study of the ankle.? There is minimal widening of the ankle mortise laterally which may reflect ligamentous injury.? There is a curvilinear lucency in the fibular neck. ? Soft tissues:? No suspicious soft tissue calcifications or masses.? ? IMPRESSION:? ? 1. Mildly displaced fracture of the lateral malleolus as seen on the concurrent study of the ankle. ? 2. No displaced fracture of the proximal fibula.? There is a curvilinear lucency in the neck of the fibula which may represent a nondisplaced fracture.? Further evaluation may be obtained with CT if clinically indicated. ? 3. Small knee joint effusion.? ? ? Dictated by: Vasyl Magana M.D. on 09/28/2021 at 0:52 ? ? Approved by: Vasyl Magana M.D. on 09/28/2021 at 0:55?? MDM Narrative Medical decision making narrative: The x-ray does show a distal fibula fracture. Given her presentation there is also concern about ligamentous injury. She is neurovascularly intact. I did inform her of the x-ray findings. We will place her in a orthopedic boot and also give her crutches because of the discomfort that she is having. I did inform her that there are potentially is a ligament injury and that she does need to leave the boot on and treat it like a cast and contact the orthopedic providers for a follow-up. She was provided information for this. She did expressed understanding and agreement with plan. Discharge Plan Departure Patient Disposition: Home Clinical Impression: Fracture, fibula Instructions: How to Use Crutches, How to Use a Walking Boot, Fibula Shaft Fracture Activity Restrictions/Additional Instructions: The x-ray today does show that you fractures your fibula. There potentially could be ligament injury as well. You can walk on your right lower extremity has tolerated but use the orthopedic boot for this. You can use the crutches as needed. Contact the orthopedic provider at the number provided below is you do need follow-up. Return to the emergency department for any new or worsening symptoms. Prescriptions: No Action levothyroxine 137 mcg capsule 137 mcg PO DAILY 0RF alprazolam [Xanax] 0.5 mg tablet 0.5 mg PO DAILY Qty: 1 0RF Rx Instructions: Take prior to procedure. ibuprofen 400 mg tablet 1 tab PO Q6H PRN (Reason: Pain, Moderate) 0RF Label Comments: TAKE 1 TABLET BY MOUTH EVERY 6 HOURS NEEDED FOR MODERATE PAIN FOR UP TO 10 DAYS epinephrine [EpiPen 2-Ant] 0.3 MG/0.3 ML auto-injector 0.3 mg SQ X1 PRN (Reason: Allergic Reaction) 0RF doxycycline hyclate 100 mg tablet 100 mg PO BID Qty: 20 0RF codeine-guaifenesin [Guaifenesin AC] 10-100 mg/5 mL liquid 5 ml PO Q6H PRN (Reason: cough) Qty: 118 0RF codeine-guaifenesin 10-100 mg/5 mL liquid 5 ml PO Q6H PRN (Reason: cough) Qty: 118 0RF ondansetron 4 mg tablet,disintegrating 4 mg PO Q8H PRN (Reason: nausea and vomiting) Qty: 14 0RF Referrals: Marybeth Galvan MD [Physician] - Maco Perkins DO [Primary Care Provider] -
[2021-09-27 23:43] VITALS: BP 130/91; PULSE 106; PULSE 109; RESP 16; RESP 18; TEMP 36.4; O2SAT 91; O2SAT 94; BMI 30.1
[2021-09-28] VITALS: BP 122/87; PULSE 105; RESP 20; O2SAT 93
[2021-09-28 00:30] VITALS: BP 113/65; PULSE 100; RESP 15; O2SAT 96
[2021-09-28 01:00] VITALS: BP 109/55; PULSE 85; RESP 21; O2SAT 93
[2021-09-28] MEDS: HYDROCODONE/ACET 5/325 PREPACK 1 BOTTLE MISC (01:29)
[2021-09-28 01:30] VITALS: BP 112/75; PULSE 92; RESP 16; O2SAT 95
== END 2021-09-28 01:52 | disposition home or self-care (01) ==
PROVIDERS: Emergency Provider Emergency Medicine; PCP Family Medicine
DX: S82.61XA Displaced fracture of lateral malleolus of right fibula, initial encounter for closed fracture (principal); X50.1XXA Overexertion from prolonged static or awkward postures, initial encounter; Y93.02 Activity, running
CPT/HCPCS: 73590; 73610; 99283

== ENCOUNTER → 2021-10-25 11:11 | Outpatient (CLI) | payer MEDICAID, OTHER, SELFPAY ==
[2021-10-25 11:58] LABS: COVID19 -Nasal RAPID Negative (Negative)
== END ==
PROVIDERS: PCP Family Medicine; Visit Provider Obstetrics & Gynecology
DX: Z20.822 Contact with and (suspected) exposure to COVID-19; Z01.812 Encounter for preprocedural laboratory examination
CPT/HCPCS: 87635; C9803

== ENCOUNTER 2021-10-26 09:06 | Day surgery (SDC) | payer MEDICAID, OTHER, SELFPAY ==
[2021-10-23 12:27] VITALS: BMI 30.2
[2021-10-26] VITALS (8 sets, daily range): BP systolic 105–130; BP diastolic 64–87; PULSE 71–91; RESP 14–20; TEMP 36.2–36.8; O2SAT 95–98; BMI 30.2
[2021-10-26] MEDS: LACTATED RINGERS 1,000 ML 100 ML IV (09:37)
--- NOTE | 2021-10-26 10:23 | SUR.OPER ---
Patient has broken right fibula. Pre-op RN and patient spoke with Dr. Galvan about lithotomy positioning and was okay'ed by Dr. Galvan.
--- NOTE | 2021-10-26 10:32 | PM.PREOP ---
Pre-operative Note COVID-19 COVID-19 status: Negative Result date/Date tested (Pos, Neg/Pending): 10/25/21 Criteria for continued procedure: Non-surgical alternatives not available or appropriate per current SOC Interval Note History & Physical reviewed/Exam performed by Physician: Yes Changes to H&P: No
--- NOTE | 2021-10-26 10:52 | SUR.OPER ---
Lithotomy on padded OR bed, head on pillow, arms secured on padded arm boards at <90 degrees abduction. Legs secured in padded yellow fins stirrups.
[2021-10-26] MEDS: SILVER NITRATE STICK 2 EACH TOP (11:03)
--- NOTE | 2021-10-26 11:11 | PM.OP.1 ---
Operative Date/Time/Diagnoses Date of procedure: 10/26/21 Time of procedure: 11:11 Pre-op diagnosis: menorrhagia Post-op diagnosis: same Procedure & Clinicians Procedure: hysteroscopy, endometrial ablation Same procedure as scheduled: Yes Indications: menorrhagia Surgeon: Aviva Escobedo Anesthesia Type: MAC +/- Operative Notes Findings: Normal vulva and vagina. Patulous cervix. Uterus mildly bicornuate, no abnormalities within endometrial cavity. Closure Type: not applicable Specimen(s): none sent Estimated Blood Loss (mL): 5 Procedure in detail: After informed consent was obtained, the patient was taken to the operating room where IV sedation was obtained. She was placed in the dorsal lithotomy position and prepped and draped in the normal sterile fashion. She had previously tolerated betadine prep in clinic without ill effect, and so betadine was used as per usual. A straight catheterization was performed during the prep. A speculum was placed in the vagina, the anterior lip of the cervix grasped, and the cervix dilated to 6mm with hegar dilators. The diagnostic hysteroscope was gently advanced into the uterus with hydrodilation, and the above findings noted. No other abnormalities were noted. The hysteroscope was removed, and the uterus sounded with the Novasure sound. The endometrial cavity was found to measure 4cm in length. The Novasure was gently advanced into the uterus and to the fundus by feel, then withdrawn 0.5cm and the Novasure deployed. The endometrial cavity width was 3.0cm. The cavity assessment was performed and passed, and the ablation performed with the Novasure device. The power was 66w and the time was 81 seconds. Once the ablation was complete, the Novasure was removed. The tenaculum was removed and hemostasis achieved with silver nitrate and pressure, and the speculum removed from the vagina. The patient tolerated the procedure well and was taken to the PACU in stable condition. IVF 600ccs LR Complications: none Post-operative Condition: stable Disposition: PACU Plan for aftercare: Routine postop care
[2021-10-26] MEDS: OXYCODONE/ACETAMINOPHEN 5/325 TABLET 1 TAB PO (11:31)
== END 2021-10-26 12:05 | disposition home or self-care (01) ==
PROVIDERS: PCP Family Medicine; Referring Provider Obstetrics & Gynecology; Visit Provider Obstetrics & Gynecology
PROC: 0U5B8ZZ Destruction of Endometrium, Via Natural or Artificial Opening Endoscopic (ICD-10-PCS; CPT 58563; principal; 2021-10-26 10:45)
DX: N92.0 Excessive and frequent menstruation with regular cycle (principal); E03.9 Hypothyroidism, unspecified; Q51.3 Bicornate uterus
CPT/HCPCS: 58563; J1100; J1885; J2250; J2405; J2704; J3010

== ENCOUNTER 2021-12-13 12:20 | Emergency (ER) | payer MEDICAID, OTHER, SELFPAY ==
[2021-12-13 12:33] VITALS: BP 136/85; PULSE 83; RESP 14; TEMP 36.9; O2SAT 97; BMI 28.0
--- NOTE | 2021-12-13 12:37 | DI.RAD.S_ITS ---
PROCEDURE: XR CHEST 1V INDICATIONS: chest pain TECHNIQUE: One view of the chest was acquired. COMPARISON: [facility], CR, XR CHEST 1V, 08/28/2021, 21:52. [facility], CR, XR CHEST 2V, 08/15/2021, 18:15. FINDINGS: Surgical changes and devices: None. Lungs and pleura: Lungs are clear. No pleural effusions or pneumothorax. Mediastinum: Mediastinal contours appear normal. Heart size is normal. Bones and chest wall: No suspicious bony lesions. Overlying soft tissues appear unremarkable. IMPRESSION: No acute cardiothoracic abnormality. Dictated by: Derek Parsons M.D. on 12/13/2021 at 13:04 Approved by: Derek Parsons M.D. on 12/13/2021 at 13:05
[2021-12-13 12:56] VITALS: BP 124/80; PULSE 78; RESP 20; O2SAT 95
[2021-12-13 13:17] VITALS: BP 146/86; PULSE 74; RESP 18; O2SAT 97
[2021-12-13 13:22] LABS: Add Manual Diff / Slide Review NO; Basophils Absolute Auto 0 /uL (0-100); Basophils Percent Auto 0.5 % (0-2); Eosinophils Absolute Auto 200 /uL (0-450); Eosinophils Percent Auto 1.9 % (2-4); Hematocrit 43.4 % (36-46); Hemoglobin 15.2 g/dL (12.0-16.0); Lymphocytes Absolute Auto 1600 /uL (1100-4500); Mean Corpuscular Hemoglobin 31.4 PG (26-34); Mean Corpuscular Volume 89.9 fL (80-100); Monocytes Absolute Auto 500 /uL (0-900); Neutrophils Absolute Auto 6700 /uL (1500-7000); Neutrophils Percent Auto 73.6 % (50-75); Platelet Count 358 X10^3/uL (150-400); Red Blood Cell Count 4.82 X10^6/uL (4.0-5.2); Red Cell Distribution Width 12.9 % (11.6-14.8); White Blood Cell Count 9.1 X10^3/uL (4.5-11.0)
[2021-12-13 13:28] LABS: Alanine Aminotransferase 24 IU/L (<35); Albumin 4.8 g/dL (3.5-5.0); Albumin Globulin Ratio 1.4 (1.0-2.8); Alkaline Phosphatase 108 U/L (38-126); Aspartate Aminotransferase 28 IU/L (14-36); BUN Creatinine Ratio 10.8 (6-22); Bilirubin Total 0.9 mg/dL (0.2-1.3); Blood Urea Nitrogen 7 mg/dL (7-17); Calcium 8.9 mg/dL (8.4-10.2); Carbon Dioxide 25 mmol/L (22-32); Chloride 105 mmol/L (98-107); Creatine Kinase 44 U/L (30-135); Estimated Glomerular Filt Rate > 60 mL/min (>60); Globulin 3.5 g/dL (1.7-4.1); Glucose 95 mg/dL (70-100); HEMOLYSIS < 15 (0-50); Lipase 54 U/L (23-300); Magnesium 2.3 mg/dL (1.6-2.3); Potassium 4.1 mmol/L (3.4-5.1); Sodium 138 mmol/L (137-145); Total Protein 8.3 g/dL (6.3-8.2)
--- NOTE | 2021-12-13 13:37 | ED.CHESTPAIN ---
HPI - Chest Pain General Chief Complaint: Chest Pain Stated Complaint: chest pain/sob Time Seen by Provider: 12/13/21 13:37 Source: patient Mode of arrival: Ambulatory Limitations: no limitations History of Present Illness HPI narrative: This is a 41-year-old female with history of hypothyroidism who presents with complaint of chest pain which she describes as substernal radiates a little bit to the left but also to the upper abdomen. Patient denies any radiation to the neck or back. She states it started yesterday sort of comes and goes nothing seems to exacerbate or alleviate it. She denies similar symptoms although has had visits before for chest pain. Patient denies any syncope or lightheadedness. She states she feels a little bit short of breath. She had a fever last night subjectively. She had 1 episode of nausea and vomiting last night. No diarrhea, no constipation that is different or new. No urinary symptoms. She states they did recently drop her thyroid supplementation 125 mcg from 137 on her last. Patient states no daily medications. She is had a uterine ablation in the past no other surgeries. 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 Her primary care is Dr. Perkins. She notes her dad had cardiac issues she is unsure exactly what was wrong but he at age 78. No other known cardiac, pulmonary embolic history reported. She does not take any estrogen, no long distance travel. No cramping or lower extremity pain or swelling. Related Data Home Medications Medication Instructions Recorded Confirmed epinephrine 0.3 mg/0.3 mL 0.3 mg SQ X1 PRN Allergic Reaction 01/13/18 11/19/21 injection, auto-injector (EpiPen 2-Ant) ibuprofen 400 mg tablet 1 tab PO Q6H PRN Pain, Moderate 01/13/18 11/19/21 levothyroxine 137 mcg capsule 137 mcg PO DAILY 05/06/19 11/19/21 Previous Rx's Medication Instructions Recorded ondansetron 4 mg disintegrating 4 mg PO Q8H PRN nausea and 03/16/21 tablet vomiting #14 tabs oxycodone 5 mg tablet 5 mg PO Q6H PRN pain #14 tabs 10/23/21 Allergies Allergy/AdvReac Type Severity Reaction Status Date / Time Iodinated Contrast Media Allergy Severe Anaphylaxis Verified 12/13/21 12:35 shellfish derived Allergy Severe ALL Verified 12/13/21 12:35 SEAFOOD, POSS ANAPHYLXIS R/T EXPOSURE @ WORK iodine Allergy Mild CONTRAST - Verified 12/13/21 12:35 BODY GOES NUMB Review of Systems Review of Systems ROS Unobtainable: All systems reviewed & are unremarkable except as noted in HPI and below Patient History Medical History Acute bronchitis Anxiety Chest wall pain Family history of diabetes mellitus Fatigue Hypothyroidism Postoperative abdominal pain Pyelonephritis Respiratory failure Upper respiratory infection Uterine fibroid (~2020) UTI (urinary tract infection) during Viral illness Vomiting and diarrhea Surgical History Anesthesia History of cholecystectomy History of dilatation and curettage Status post delivery (02/02/13) Status post knee surgery Status post tubal ligation (06/17/16) Family History Father Diabetes mellitus History of heart disease Hypertension Grandmother Cancer Diabetes mellitus History of heart disease Social History household members: spouse Smoking Status: Former smoker alcohol intake: never Smoking Status: Former smoker tobacco type: cigarettes alcohol intake frequency: a few times a month Alcohol type: hard liquor Substance Use Type: does not use Exam Narrative Exam Narrative: GENERAL: Alert and oriented x three, female in mild distress HEENT: Head normocephalic, atraumatic, EOMI, pupils reactive, face symmetric, moist mucous membranes NECK: Supple, full range of motion CARDIOVASCULAR: Regular rate and rhythm without murmurs, rubs or gallops. RESPIRATORY: Breath sounds equal bilaterally, no wheezes rales or rhonchi. Chest pain on palpation. ABDOMEN: Soft, nontender. Normoactive bowel sounds all 4 quadrants. No guarding or rebound, rigidity, no mass, no bruit or pulsatile mass. : No CVA tenderness EXTREMITIES: Normal range of motion, no clubbing or edema. Neurovascularly intact NEUROLOGICAL: Cranial nerves II through XII grossly intact. Moving all extremities SKIN: Warm, dry, no petechiae, no rashes or lesions. Initial Vital Signs Initial Vital Signs: Vital Signs Temperature 98.5 F 12/13/21 12:33 Pulse Rate 83 12/13/21 12:33 Respiratory Rate 14 12/13/21 12:33 Blood Pressure 136/85 12/13/21 12:33 Pulse Oximetry 97 12/13/21 12:33 Oxygen Delivery Method 12/13/21 12:33 Scores HEART Score Heart Score history: Slightly Suspicious Heart Score EKG: Normal Heart Score Age: < 45 years old Heart Score risk factors: 1-2 risk factors (father/family hx) Heart Score troponin: < or = to normal limit Heart Score Total: 1 PERC Score Age greater than or equal to 50 years: No Heart rate greater than or equal to 100 bpm: No Room Air O2 Sat less than 95%: No Unilateral leg swelling: No Recent trauma or surgery: No Hemoptysis: No Prior PE or DVT: No Hormone Use: No Total PERC Score: 0 Course Orders Ordered: ED Orders 12/13/21 12:37 XR chest 1V Stat EKG-12 Lead Stat 12/13/21 13:00 Complete Blood Count AUTO DIFF Stat Comprehensive Metabolic Panel Stat Lipase Stat Magnesium Stat Troponin & CK Cardiac Panel Stat 12/13/21 14:55 Trop I [Troponin I] Stat 12/13/21 14:58 COVID19 -Nasal RAPID/Pre-Proc Stat 12/13/21 15:10 EKG-12 Lead Routine EKG-12 Lead Routine Discontinued Medications Ketorolac Tromethamine (Ketorolac 30 Mg/Ml Vial) 15 mg IV NOW ONE Stop: 12/13/21 15:01 Last Admin: 12/13/21 15:14 Dose: 15 mg Documented By: NR Vital Signs Vital signs: Vital Signs - 8 hr 12/13/21 12:33 12/13/21 12:56 12/13/21 13:17 Temperature 98.5 F Pulse Rate 83 78 74 Respiratory Rate 14 20 18 Blood Pressure 136/85 124/80 146/86 H Pulse Oximetry 97 95 97 Oxygen Delivery Method Room Air Room Air Room Air 12/13/21 14:30 12/13/21 15:29 12/13/21 16:27 Temperature Pulse Rate 81 80 76 Respiratory Rate 18 18 18 Blood Pressure 110/64 123/68 124/73 Pulse Oximetry 97 97 96 Oxygen Delivery Method Room Air Room Air Room Air MDM - Chest Pain Lab Data Result diagrams: 12/13/21 13:00 12/13/21 13:00 Labs: Lab Results 12/13/21 12/13/21 12/13/21 Range/Units 13:00 13:00 14:55 WBC 9.1 (4.5-11.0) X10^3/uL RBC 4.82 (4.0-5.2) X10^6/uL Hgb 15.2 (12.0-16.0) g/dL Hct 43.4 (36-46) % MCV 89.9 (80-100) fL MCH 31.4 (26-34) PG MCHC 35.0 (30-36) % RDW 12.9 (11.6-14.8) % Plt Count 358 (150-400) X10^3/uL Neut % (Auto) 73.6 (50-75) % Lymph % (Auto) 18.0 L (25-40) % [place] % (Auto) 6.0 (3-14) % Eos % (Auto) 1.9 L (2-4) % Baso % (Auto) 0.5 (0-2) % Neut # (Auto) 6700 (7999-0241) /uL Lymph # (Auto) 1600 (3494-1482) /uL [place] # (Auto) 500 (0-900) /uL Eos # (Auto) 200 (0-450) /uL Baso # (Auto) 0 (0-100) /uL Sodium 138 (137-145) mmol/L Potassium 4.1 (3.4-5.1) mmol/L Chloride 105 (98-107) mmol/L Carbon Dioxide 25 (22-32) mmol/L BUN 7 (7-17) mg/dL Creatinine 0.65 (0.52-1.04) mg/dL Estimated GFR > 60 (>60) mL/min BUN/Creatinine Ratio 10.8 (6-22) Glucose 95 (70-100) mg/dL Calcium 8.9 (8.4-10.2) mg/dL Magnesium 2.3 (1.6-2.3) mg/dL Total Bilirubin 0.9 (0.2-1.3) mg/dL AST 28 (14-36) IU/L ALT 24 (<35) IU/L Alkaline Phosphatase 108 (38-126) U/L Total Creatine Kinase 44 (30-135) U/L CK-MB (CK-2) TNP CK-MB (CK-2) Rel Index TNP Troponin I < 0.012 < 0.012 (0.01-0.034) ng/mL Total Protein 8.3 H (6.3-8.2) g/dL Albumin 4.8 (3.5-5.0) g/dL Globulin 3.5 (1.7-4.1) g/dL Albumin/Globulin Ratio 1.4 (1.0-2.8) Lipase 54 (23-300) U/L SARS-CoV-2 (PCR) (Negative) 12/13/21 Range/Units 14:58 WBC (4.5-11.0) X10^3/uL RBC (4.0-5.2) X10^6/uL Hgb (12.0-16.0) g/dL Hct (36-46) % MCV (80-100) fL MCH (26-34) PG MCHC (30-36) % RDW (11.6-14.8) % Plt Count (150-400) X10^3/uL Neut % (Auto) (50-75) % Lymph % (Auto) (25-40) % [place] % (Auto) (3-14) % Eos % (Auto) (2-4) % Baso % (Auto) (0-2) % Neut # (Auto) (3570-7327) /uL Lymph # (Auto) (4192-4454) /uL [place] # (Auto) (0-900) /uL Eos # (Auto) (0-450) /uL Baso # (Auto) (0-100) /uL Sodium (137-145) mmol/L Potassium (3.4-5.1) mmol/L Chloride (98-107) mmol/L Carbon Dioxide (22-32) mmol/L BUN (7-17) mg/dL Creatinine (0.52-1.04) mg/dL Estimated GFR (>60) mL/min BUN/Creatinine Ratio (6-22) Glucose (70-100) mg/dL Calcium (8.4-10.2) mg/dL Magnesium (1.6-2.3) mg/dL Total Bilirubin (0.2-1.3) mg/dL AST (14-36) IU/L ALT (<35) IU/L Alkaline Phosphatase (38-126) U/L Total Creatine Kinase (30-135) U/L CK-MB (CK-2) CK-MB (CK-2) Rel Index Troponin I (0.01-0.034) ng/mL Total Protein (6.3-8.2) g/dL Albumin (3.5-5.0) g/dL Globulin (1.7-4.1) g/dL Albumin/Globulin Ratio (1.0-2.8) Lipase (23-300) U/L SARS-CoV-2 (PCR) Negative (Negative) Imaging Data Chest x-ray: Radiologist's Impression: Close Chest X-Ray (Signed) Derek Parsons - 12/13/21 Telemetry Strips 10/26/21 Tibia/Fibula X-Ray (Signed) MaganaVasyl chris - 09/27/21 Ankle X-Ray (Signed) Magana,Vasyl - 09/27/21 Chest X-Ray (Signed) MaganaVasyl chris - 08/28/21 Chest X-Ray (Signed) Esteban Cooper - 08/15/21 Pelvis Ultrasound (Signed) Giancarlo Rivas - 07/31/21 Chest X-Ray (Signed) Effie Fournier - 04/23/21 Chest X-Ray (Signed) Effie Fournier - 01/18/21 Chest X-Ray (Signed) Juanito Dempsey - 11/06/20 Pelvis Ultrasound (Signed) Miguel Wilson - 07/11/20 Abdomen/Pelvis CT (Signed) Arcelia Quintero - 06/29/20 Chest X-Ray (Signed) Nicola Sanchez - 02/09/20 Pelvis Ultrasound (Signed) Juanito Dempsey - 10/12/18 Tibia/Fibula X-Ray (Signed) Cyrus Luna - 05/10/18 Abdomen/Pelvis CT (Signed) Arcelia Quintero - 05/07/18 Chest X-Ray (Signed) Arcelia Quintero - 02/05/18 Chest X-Ray (Signed) MaganaVasyl chris - 01/13/18 Chest X-Ray (Signed) Effie Fournier - 01/13/18 Abdomen Ultrasound (Signed) Alonso Hodge - 10/17/17 Abdomen X-Ray (Signed) Arcelia Quintero - 10/16/17 Launch?Image [address] [id number] XRay Report Signed Patient: Imelda Wilder MR#: [id number] : 1980 Acct:[id number] Age/Sex: 41 / F Date of Service: 12/13/21 Loc: ED Accession Number: [id number] ?? Procedure: XR chest 1V Ordering Provider: Tesha Schmitz D.O. PROCEDURE:? XR CHEST 1V ? INDICATIONS:? chest pain ? TECHNIQUE:? One view of the chest was acquired.? ? COMPARISON:? [facility], CR, XR CHEST 1V, 08/28/2021, 21:52.? [facility], CR, XR CHEST 2V, 08/15/2021, 18:15. ? FINDINGS:? ? Surgical changes and devices:? None.? ? Lungs and pleura:? Lungs are clear.? No pleural effusions or pneumothorax.? ? Mediastinum:? Mediastinal contours appear normal.? Heart size is normal.? ? Bones and chest wall:? No suspicious bony lesions.? Overlying soft tissues appear unremarkable.? ? IMPRESSION:? No acute cardiothoracic abnormality. ? ? Dictated by: Derek Parsons M.D. on 12/13/2021 at 13:04 ? ? Approved by: Derek Parsons M.D. on 12/13/2021 at 13:05?? ECG Data Attestation: I personally reviewed and interpreted this ECG as follows: Interpretation: Sinus rhythm rate of 83, P are 136, QRS is 76 QTC 425. No acute changes appreciated comparison to prior from 08/28/21. EKG 2., sinus rhythm, rate of 75 NV 144 QRS 82 and QTC of 417. No acute ST changes appreciated. No elevation or depression noted. MDM Narrative Medical decision making narrative: This is a 41-year-old female history of hypothyroidism with complaint of substernal chest pain radiates to the epigastric region. Patient's CBC, CMP lipase and troponin are initially negative. She was COVID positive in March of 2021. Chest x-ray today is negative. Vital signs do not show any acute changes with no acute EKG changes. Patient defers anything for discomfort at this time. Plan for repeat EKG/troponin at 2 hour noble and COVID swab. These are found to be negative as well with no acute EKG changes. COVID swab is also negative. Patient had improvement of her pain with Toradol. Discussed continuing with NSAIDs as needed for pain. Plan for patient to follow up with primary care she follows through the [facility] clinic. Discharge Plan Departure Patient Disposition: Home Clinical Impression: Chest pain Instructions: DI for Chest Pain Activity Restrictions/Additional Instructions: Follow-up with primary care for recheck. Your labs, imaging and EKG today do not show any major abnormalities. You can take Tylenol and/or ibuprofen as needed for pain. Please return for fevers, worsening chest pain, passing out, increasing shortness of breath, coughing up blood, new swelling in her extremities or other new or concerning symptoms. Prescriptions: No Action levothyroxine 137 mcg capsule 137 mcg PO DAILY oxycodone 5 mg tablet 5 mg PO Q6H PRN (Reason: pain) Qty: 14 0RF Rx Instructions: Take as often as every 6 hours for pain after endometrial ablation. ibuprofen 400 mg tablet 1 tab PO Q6H PRN (Reason: Pain, Moderate) Label Comments: TAKE 1 TABLET BY MOUTH EVERY 6 HOURS NEEDED FOR MODERATE PAIN FOR UP TO 10 DAYS epinephrine [EpiPen 2-Ant] 0.3 MG/0.3 ML auto-injector 0.3 mg SQ X1 PRN (Reason: Allergic Reaction) ondansetron 4 mg tablet,disintegrating 4 mg PO Q8H PRN (Reason: nausea and vomiting) Qty: 14 0RF Referrals: Maco Perkins DO [Primary Care Provider] - Visit Report Forms: Patient Portal/API
[2021-12-13 13:39] LABS: Troponin I < 0.012 ng/mL (0.01-0.034)
[2021-12-13 14:30] VITALS: BP 110/64; PULSE 81; RESP 18; O2SAT 97
[2021-12-13] MEDS: KETOROLAC 30 MG/ML VIAL 15 MG IV (15:14)
[2021-12-13 15:16] LABS: COVID19 -Nasal RAPID Negative (Negative)
[2021-12-13 15:25] LABS: Troponin I < 0.012 ng/mL (0.01-0.034)
[2021-12-13 15:29] VITALS: BP 123/68; PULSE 80; RESP 18; O2SAT 97
[2021-12-13 16:27] VITALS: BP 124/73; PULSE 76; RESP 18; O2SAT 96
== END 2021-12-13 16:28 | disposition home or self-care (01) ==
PROVIDERS: Emergency Provider Emergency Medicine; PCP Family Medicine
DX: R07.9 Chest pain, unspecified (principal); Z20.822 Contact with and (suspected) exposure to COVID-19; Z86.16 Personal history of COVID-19
CPT/HCPCS: 36415; 71045; 80053; 82550; 83690; 83735; 84484; 85025; 87635; 93005; 93010; 96374; 99284; C9803; J1885

== ENCOUNTER → 2022-02-06 13:59 | Outpatient (CLI) | payer MEDICAID, OTHER, SELFPAY ==
--- NOTE | 2022-02-06 | DI.RAD.S_ITS ---
PROCEDURE: XR ELBOW RT MIN 3V INDICATIONS: Unspecified injury of right elbow, initial encounter. Trauma, pain. TECHNIQUE: 3 views of the elbow were acquired. COMPARISON: None. FINDINGS: Bones: No fractures or dislocations. No suspicious bony lesions. Soft tissues: No elbow joint effusion. No suspicious soft tissue calcifications. IMPRESSION: No acute osseous abnormality. If symptoms persist, follow-up radiographs and/or CT may be helpful for further evaluation. Dictated by: Giancarlo Telles M.D. on 02/06/2022 at 18:49 Approved by: Giancarlo Telles M.D. on 02/06/2022 at 18:55
== END ==
PROVIDERS: PCP Family Medicine; Referring Provider Registered Nurse; Visit Provider Registered Nurse
DX: S59.901A Unspecified injury of right elbow, initial encounter (principal)
CPT/HCPCS: 73080

== ENCOUNTER 2022-03-26 10:43 | Emergency (ER) | payer MEDICAID, OTHER, SELFPAY ==
[2022-03-26 10:47] VITALS: BP 119/67; PULSE 74; RESP 15; TEMP 36.8; O2SAT 98; BMI 26.5
[2022-03-26 11:08] LABS: Appearance Urine UA CLEAR; Bilirubin Urine UA NEGATIVE (NEGATIVE); Color Urine UA YELLOW; Glucose Urine UA NEGATIVE (Negative); Ketones Urine UA NEGATIVE (NEGATIVE); Leukocyte Esterase Urine UA TRACE (NEGATIVE); Nitrite Urine UA NEGATIVE (Negative); Occult Blood Urine UA NEGATIVE (Negative); Protein Urine UA NEGATIVE (Negative); Specific Gravity Urine UA <=1.005 (1.000-1.035); Urobilinogen Urine UA 0.2 E.U./dL (0.2); pH Urine UA 6.5 (4.5-8.0)
[2022-03-26 11:13] LABS: Bacteria Urine None Seen; RBC Urine None Seen (0-5/HPF); Squamous Epithelial Cell Urine 5-10 /HPF (0-5/HPF); WBC Urine 0-1/HPF (0-5/HPF)
[2022-03-26 11:14] LABS: Culture Indicated Urine Specimen Cultured
== END 2022-03-26 11:34 | disposition left against medical advice (07) ==
PROVIDERS: Emergency Provider Family Medicine Addiction Medicine; PCP Family Medicine
DX: R10.9 Unspecified abdominal pain (principal)
CPT/HCPCS: 81001; 87086; 99281

== ENCOUNTER 2022-03-27 10:37 | Emergency (ER) | payer MEDICAID, OTHER, SELFPAY ==
[2022-03-27] VITALS (7 sets, daily range): BP systolic 107–129; BP diastolic 58–75; PULSE 67–80; RESP 15; TEMP 36.7–37; O2SAT 95–98; BMI 26.5
--- NOTE | 2022-03-27 16:10 | ED_ITS ---
HPI - Female Genitourinary <JOSEPH Kaufman - Last Filed: 03/27/22 20:11> General Chief complaint: Urogenital-Female Stated complaint: had UTI last week, took abx, pain in R kidney Time Seen by Provider: 03/27/22 15:42 Source: patient Mode of arrival: Ambulatory History of Present Illness HPI Narrative: This is a 41-year-old female with history of UTIs, states that she has 5 children, states that she recently completed ciprofloxacin for a UTI, urine culture from yesterday/03/26/2022 shows mixed Gram-positive abner, patient states that her primary care provider told her that her urine looked fine. She states that she was on ciprofloxacin for the full course any took a long time for her symptoms to improve. Urine culture from 03/16/2021 is the most recent before this which shows E coli and resistance to ampicillin only. Related Data Home Medications Medication Instructions Recorded Confirmed epinephrine 0.3 mg/0.3 mL 0.3 mg SQ X1 PRN Allergic Reaction 01/13/18 11/19/21 injection, auto-injector (EpiPen 2-Ant) ibuprofen 400 mg tablet 1 tab PO Q6H PRN Pain, Moderate 01/13/18 11/19/21 levothyroxine 137 mcg capsule 137 mcg PO DAILY 05/06/19 11/19/21 Previous Rx's Medication Instructions Recorded ondansetron 4 mg disintegrating 4 mg PO Q8H PRN nausea and 03/16/21 tablet vomiting #14 tabs oxycodone 5 mg tablet 5 mg PO Q6H PRN pain #14 tabs 10/23/21 Allergies Allergy/AdvReac Type Severity Reaction Status Date / Time Iodinated Contrast Media Allergy Severe Anaphylaxis Verified 03/27/22 11:14 shellfish derived Allergy Severe ALL Verified 03/27/22 11:14 SEAFOOD, POSS ANAPHYLXIS R/T EXPOSURE @ WORK iodine Allergy Mild CONTRAST - Verified 03/27/22 11:14 BODY GOES NUMB Review of Systems <JOSEPH Kaufman - Last Filed: 03/27/22 20:11> Review of Systems Narrative: Review of systems is negative for acute abnormalities unless otherwise noted in HPI Patient History <JOSEPH Kaufman - Last Filed: 03/27/22 20:11> Medical History Acute bronchitis Anxiety Chest wall pain Family history of diabetes mellitus Fatigue Hypothyroidism Postoperative abdominal pain Pyelonephritis Respiratory failure Upper respiratory infection Uterine fibroid (~2020) UTI (urinary tract infection) during Viral illness Vomiting and diarrhea Surgical History Anesthesia History of cholecystectomy History of dilatation and curettage Status post delivery (02/02/13) Status post knee surgery Status post tubal ligation (06/17/16) Family History Father Diabetes mellitus History of heart disease Hypertension Grandmother Cancer Diabetes mellitus History of heart disease tobacco type: cigarettes alcohol intake frequency: other Alcohol type: hard liquor Last Alcoholic Drink: today Substance Use Type: does not use Exam <JOSEPH Kaufman - Last Filed: 03/27/22 20:11> Narrative Exam Narrative: Reviewed vitals signs and nursing notes. General: cooperative, comfortable, in no acute distress, well groomed HEENT: symmetrical facial expressions, moist mucous membranes Cardiovascular: regular rate and rhythm, no peripheral edema, warm extremities Respiratory: normal effort, able to speak in complete sentences, without wheezing, stridor, or abnormal breath sounds. No retractions or tachypnea. GI: abdomen soft, nontender to palpation, nondistended, without masses, rebound tenderness or exquisite tenderness with exam. PATIENT ENDORSES CVA TENDERNESS ON THE RIGHT MSK: moves all extremities, neurovascularly intact, no weakness, normal tone Skin: brisk capillary refill, without pallor or erythema Neuro: normal speech and cognition, A&O x3, ambulatory, clear speech Psych: mental status is grossly normal, congruent mood, normal affect, pleasant and cooperative Initial Vital Signs Initial Vital Signs: Vital Signs Temperature 98.0 F 03/27/22 11:15 Pulse Rate 80 03/27/22 11:15 Respiratory Rate 15 03/27/22 11:15 Blood Pressure 122/75 03/27/22 11:15 Pulse Oximetry 97 03/27/22 11:15 Oxygen Delivery Method 03/27/22 11:15 <Efe Caraballo DO - Last Filed: 03/28/22 07:14> Initial Vital Signs Initial Vital Signs: Vital Signs Temperature 98.0 F 03/27/22 11:15 Pulse Rate 80 03/27/22 11:15 Respiratory Rate 15 03/27/22 11:15 Blood Pressure 122/75 03/27/22 11:15 Pulse Oximetry 97 03/27/22 11:15 Oxygen Delivery Method 03/27/22 11:15 Course <JOSEPH Kaufman - Last Filed: 03/27/22 20:11> Course Course Narrative: [facility] CLIA ID [id number] [address] [place] [address] RUN DATE: 03/27/22 Specimen Inquiry PAGE 1 RUN TIME: 1604 Name: Imelda Wilder Age/Sex: 41/F Attend Dr: Oswald Ardon MD Unit#: [id number] : 1980Location: ED Re03/26/22 Disch: Status: DEP ER SPEC #: [id number] SOSA: 03/26/22 STATUS: COMP REQ #: [id number] SPDESC: RECD: 03/26/22-[address]: Oswald Ardon MD SOURCE: UA Reflex ENTR: 03/26/[address]: Tessa De León MD FAX TO: ORDERED: URINE CULTURE Procedure Result Verified Site Urine Culture Final 03/27/22812 3 or more colony types Mixed gram + abner. Deemed unsuitable for further studies. END OF REPORT Orders Ordered: Discontinued Medications Ceftriaxone Sodium 1,000 mg/ (Sodium Chloride) 100 mls @ 200 mls/hr IV NOW ONE Stop: 03/27/22 16:06 Last Infusion: 03/27/22 17:19 Dose: 0 mls/hr Documented By: Admin: 03/27/22 16:23 Dose: 200 mls/hr Documented By: EGRARDO Ketorolac Tromethamine (Ketorolac 30 Mg/Ml Vial) 15 mg IV NOW ONE Stop: 03/27/22 16:15 Last Admin: 03/27/22 16:23 Dose: 15 mg Documented By: GERARDO Reevaluation(s) Reevaluation #1: SPEC #: [id number] SOSA: 03/27/22 STATUS: COMP REQ #: [id number] SPDESC: RECD: 03/27/[address]: Alis Barker SOURCE: Vaginal ENTR: 03/27/[address]: Tessa De León MD FAX TO: ORDERED: Wet Prep Procedure Result Verified Site Wet Prep Tric BV Jaye Final 03/27/221722 White blood cells No WBC seen Clue cells: None seen Yeast: None seen Trichomonas: None seen Vital Signs Vital signs: Vital Signs - 8 hr 03/27/22 14:15 03/27/22 15:49 03/27/22 15:49 Temperature 98.6 F Pulse Rate 74 71 Blood Pressure 128/58 L 129/67 Pulse Oximetry 95 97 Oxygen Delivery Method Room Air 03/27/22 16:00 03/27/22 16:00 03/27/22 16:20 Temperature Pulse Rate 77 67 Blood Pressure 118/63 Pulse Oximetry 97 96 Oxygen Delivery Method 03/27/22 16:20 03/27/22 18:01 03/27/22 18:02 Temperature Pulse Rate 74 68 Blood Pressure 107/68 Pulse Oximetry 98 98 Oxygen Delivery Method 03/27/22 18:02 Temperature Pulse Rate Blood Pressure 112/68 Pulse Oximetry Oxygen Delivery Method <Efe Caraballo DO - Last Filed: 03/28/22 07:14> Orders Ordered: Discontinued Medications Ceftriaxone Sodium 1,000 mg/ (Sodium Chloride) 100 mls @ 200 mls/hr IV NOW ONE Stop: 03/27/22 16:06 Last Infusion: 03/27/22 17:19 Dose: 0 mls/hr Documented By: Admin: 03/27/22 16:23 Dose: 200 mls/hr Documented By: GERARDO Ketorolac Tromethamine (Ketorolac 30 Mg/Ml Vial) 15 mg IV NOW ONE Stop: 03/27/22 16:15 Last Admin: 03/27/22 16:23 Dose: 15 mg Documented By: GERARDO Vital Signs Vital signs: Vital Signs - 8 hr 03/27/22 14:15 03/27/22 15:49 03/27/22 15:49 Temperature 98.6 F Pulse Rate 74 71 Blood Pressure 128/58 L 129/67 Pulse Oximetry 95 97 Oxygen Delivery Method Room Air 03/27/22 16:00 03/27/22 16:00 03/27/22 16:20 Temperature Pulse Rate 77 67 Blood Pressure 118/63 Pulse Oximetry 97 96 Oxygen Delivery Method 03/27/22 16:20 03/27/22 18:01 03/27/22 18:02 Temperature Pulse Rate 74 68 Blood Pressure 107/68 Pulse Oximetry 98 98 Oxygen Delivery Method 03/27/22 18:02 Temperature Pulse Rate Blood Pressure 112/68 Pulse Oximetry Oxygen Delivery Method MDM - Female Genitourinary <FAUSTO KaufmanP - Last Filed: 03/27/22 20:11> Lab Data Result diagrams: 03/27/22 15:43 03/27/22 15:43 Labs: Lab Results 03/27/22 03/27/22 03/27/22 Range/Units 15:36 15:43 15:43 WBC 8.2 (4.5-11.0) X10^3/uL RBC 4.71 (4.0-5.2) X10^6/uL Hgb 14.4 (12.0-16.0) g/dL Hct 41.9 (36-46) % MCV 88.9 (80-100) fL MCH 30.6 (26-34) PG MCHC 34.5 (30-36) % RDW 13.2 (11.6-14.8) % Plt Count 416 H (150-400) X10^3/uL Neut % (Auto) 50.6 (50-75) % Lymph % (Auto) 27.6 (25-40) % Wirt % (Auto) 8.0 (3-14) % Eos % (Auto) 13.5 H (2-4) % Baso % (Auto) 0.3 (0-2) % Neut # (Auto) 4100 (4786-3920) /uL Lymph # (Auto) 2300 (9403-1041) /uL Wirt # (Auto) 700 (0-900) /uL Eos # (Auto) 1100 H (0-450) /uL Baso # (Auto) 0 (0-100) /uL Sodium 141 (137-145) mmol/L Potassium 3.6 (3.4-5.1) mmol/L Chloride 106 (98-107) mmol/L Carbon Dioxide 27 (22-32) mmol/L BUN 8 (7-17) mg/dL Creatinine 0.77 (0.52-1.04) mg/dL Estimated GFR > 60 (>60) mL/min BUN/Creatinine Ratio 10.4 (6-22) Glucose 100 (70-100) mg/dL Lactate (0.7-2.1) mmol/L Calcium 8.6 (8.4-10.2) mg/dL Total Bilirubin 0.7 (0.2-1.3) mg/dL AST 28 (14-36) IU/L ALT 18 (<35) IU/L Alkaline Phosphatase 110 (38-126) U/L Total Protein 7.9 (6.3-8.2) g/dL Albumin 4.3 (3.5-5.0) g/dL Globulin 3.6 (1.7-4.1) g/dL Albumin/Globulin Ratio 1.2 (1.0-2.8) Urine Color Yellow Urine Appearance Clear Urine pH 6.0 (4.5-8.0) Ur Specific Nicollet 1.020 (1.000-1.035) Urine Protein Negative (Negative) Urine Glucose (UA) Negative (Negative) g/dL Urine Ketones Negative (NEGATIVE) Urine Occult Blood Negative (Negative) Urine Nitrate Negative (Negative) Urine Bilirubin Negative (NEGATIVE) Urine Urobilinogen 1.0 (0.2) E.U./dL Ur Leukocyte Esterase Negative (NEGATIVE) Urine RBC 0-1/hpf (0-5/HPF) Urine WBC None seen (0-5/HPF) Ur Squamous Epith Cells 10-30 /hpf H (0-5/HPF) Amorphous Sediment Urine Bacteria None seen (None) Ur Culture Indicated? Cult not indicated Ur Chlamydia DNA (PCR) SARS-CoV-2 (PCR) (Negative) Influenza A (RT-PCR) (NEGATIVE) Influenza B (RT-PCR) (NEGATIVE) RSV (PCR) (Negative) N gonorrhoeae DNA (PCR) 03/27/22 03/27/22 03/27/22 Range/Units 15:43 15:46 17:18 WBC (4.5-11.0) X10^3/uL RBC (4.0-5.2) X10^6/uL Hgb (12.0-16.0) g/dL Hct (36-46) % MCV (80-100) fL MCH (26-34) PG MCHC (30-36) % RDW (11.6-14.8) % Plt Count (150-400) X10^3/uL Neut % (Auto) (50-75) % Lymph % (Auto) (25-40) % Wirt % (Auto) (3-14) % Eos % (Auto) (2-4) % Baso % (Auto) (0-2) % Neut # (Auto) (2910-0868) /uL Lymph # (Auto) (8098-9196) /uL Wirt # (Auto) (0-900) /uL Eos # (Auto) (0-450) /uL Baso # (Auto) (0-100) /uL Sodium (137-145) mmol/L Potassium (3.4-5.1) mmol/L Chloride (98-107) mmol/L Carbon Dioxide (22-32) mmol/L BUN (7-17) mg/dL Creatinine (0.52-1.04) mg/dL Estimated GFR (>60) mL/min BUN/Creatinine Ratio (6-22) Glucose (70-100) mg/dL Lactate 0.8 (0.7-2.1) mmol/L Calcium (8.4-10.2) mg/dL Total Bilirubin (0.2-1.3) mg/dL AST (14-36) IU/L ALT (<35) IU/L Alkaline Phosphatase (38-126) U/L Total Protein (6.3-8.2) g/dL Albumin (3.5-5.0) g/dL Globulin (1.7-4.1) g/dL Albumin/Globulin Ratio (1.0-2.8) Urine Color Yellow Urine Appearance Clear Urine pH 6.5 (4.5-8.0) Ur Specific Nicollet 1.020 (1.000-1.035) Urine Protein Negative (Negative) Urine Glucose (UA) Trace H (Negative) g/dL Urine Ketones Negative (NEGATIVE) Urine Occult Blood Negative (Negative) Urine Nitrate Negative (Negative) Urine Bilirubin Negative (NEGATIVE) Urine Urobilinogen 1.0 (0.2) E.U./dL Ur Leukocyte Esterase Negative (NEGATIVE) Urine RBC None seen (0-5/HPF) Urine WBC None seen (0-5/HPF) Ur Squamous Epith Cells 5-10 /hpf H (0-5/HPF) Amorphous Sediment 1+ Urine Bacteria None seen (None) Ur Culture Indicated? Cult not indicated Ur Chlamydia DNA (PCR) SARS-CoV-2 (PCR) Negative (Negative) Influenza A (RT-PCR) Flu a negative (NEGATIVE) Influenza B (RT-PCR) Flu b negative (NEGATIVE) RSV (PCR) Negative (Negative) N gonorrhoeae DNA (PCR) 03/27/22 Range/Units 17:54 WBC (4.5-11.0) X10^3/uL RBC (4.0-5.2) X10^6/uL Hgb (12.0-16.0) g/dL Hct (36-46) % MCV (80-100) fL MCH (26-34) PG MCHC (30-36) % RDW (11.6-14.8) % Plt Count (150-400) X10^3/uL Neut % (Auto) (50-75) % Lymph % (Auto) (25-40) % Wirt % (Auto) (3-14) % Eos % (Auto) (2-4) % Baso % (Auto) (0-2) % Neut # (Auto) (4978-4186) /uL Lymph # (Auto) (1790-3030) /uL Wirt # (Auto) (0-900) /uL Eos # (Auto) (0-450) /uL Baso # (Auto) (0-100) /uL Sodium (137-145) mmol/L Potassium (3.4-5.1) mmol/L Chloride (98-107) mmol/L Carbon Dioxide (22-32) mmol/L BUN (7-17) mg/dL Creatinine (0.52-1.04) mg/dL Estimated GFR (>60) mL/min BUN/Creatinine Ratio (6-22) Glucose (70-100) mg/dL Lactate (0.7-2.1) mmol/L Calcium (8.4-10.2) mg/dL Total Bilirubin (0.2-1.3) mg/dL AST (14-36) IU/L ALT (<35) IU/L Alkaline Phosphatase (38-126) U/L Total Protein (6.3-8.2) g/dL Albumin (3.5-5.0) g/dL Globulin (1.7-4.1) g/dL Albumin/Globulin Ratio (1.0-2.8) Urine Color Urine Appearance Urine pH (4.5-8.0) Ur Specific Nicollet (1.000-1.035) Urine Protein (Negative) Urine Glucose (UA) (Negative) g/dL Urine Ketones (NEGATIVE) Urine Occult Blood (Negative) Urine Nitrate (Negative) Urine Bilirubin (NEGATIVE) Urine Urobilinogen (0.2) E.U./dL Ur Leukocyte Esterase (NEGATIVE) Urine RBC (0-5/HPF) Urine WBC (0-5/HPF) Ur Squamous Epith Cells (0-5/HPF) Amorphous Sediment Urine Bacteria (None) Ur Culture Indicated? Ur Chlamydia DNA (PCR) Not detected SARS-CoV-2 (PCR) (Negative) Influenza A (RT-PCR) (NEGATIVE) Influenza B (RT-PCR) (NEGATIVE) RSV (PCR) (Negative) N gonorrhoeae DNA (PCR) Not detected Imaging Data CT scan - abdomen/pelvis: Radiologist's Impression: PROCEDURE:? CT KIDNEY URETER BLADDER (KUB) ? INDICATIONS:? pelvic pain, nephrolithiasis? ? TECHNIQUE:? Axial sections were acquired from the lung bases to the pubic symphysis.? Coronal and sagittal reformats were performed.? For radiation dose reduction, the following was used: ?automated exposure control, adjustment of mA and/or kV according to patient size.? ? COMPARISON:? None. ? FINDINGS:? Image quality:? Excellent.? ? Lung bases:? Dependent atelectasis in posterior aspect of bilateral lung bases are seen.. ?? Heart:? No significant findings. ? URINARY: Right Kidney:? No stones or hydronephrosis.? Right Ureter:? No hydroureter. ? Left Kidney:? No stones or hydronephrosis. Left Ureter:? No hydroureter. ? Bladder:? Normal wall thickness. No stones. ? ? ? ABDOMEN: Liver:? Unremarkable.? ? Gallbladder:? Gallbladder is not visualized which may indicate prior cholecystectomy.? Biliary ducts:? Unremarkable.? ? Pancreas:? Unremarkable.? ? Spleen:? Unremarkable.? ? Adrenal Glands:? Unremarkable.? ? ? Stomach and Bowel:? There is no bowel obstruction.? No abnormal bowel wall thickening or mesenteric fat stranding.? No abscess collection. Peritoneum:? No abnormal intraperitoneal fluid.? No free air.? ? Ventral Wall: ? No hernia.? Abdominal Nodes:? No enlarged retroperitoneal or mesenteric lymph nodes.? Vessels:? Aorta and inferior vena cava are normal in size.? ? PELVIS: Pelvic Organs:? Bulky appearing uterus with heterogeneous myometrial density concerning for uterine fibroids.? There is suggestion of a right ovarian cyst measures 1.9 x 1.8 cm in size. Pelvic Nodes: Unremarkable. Miscellaneous: No inguinal hernias are seen. ? ? ? Bones:? No suspicious bony lesion.? No acute vertebral body compression fracture. ? IMPRESSION:? 1. No renal stones or hydronephrosis.? No hydroureter.? Normal appearing urinary bladder. 2. No bowel obstruction or abnormal bowel wall thickening.? No free fluid or free air. 3. Finding may represent uterine fibroids.? Suggestion of small right ovarian cyst as above.? ? Dictated by: Cyrus Luna M.D. on 03/27/2022 at 16:45 ? ? Approved by: Cyrus Luna M.D. on 03/27/2022 at 16:48 ? MDM Narrative Medical decision making narrative: THIS IS A 41-YEAR-OLD FEMALE PRESENTS TO THE EMERGENCY DEPARTMENT WITH RECENT COMPLETION OF CIPROFLOXACIN FOR A UTI, URINE CULTURE FROM 03/26/2022 SHOWS GRAM- POSITIVE ORGANISMS WITH A TRACE OF LEUKOCYTE ESTERASE. TODAY HER UA DOES NOT SHOW ANY LEUKOCYTE ESTERASE, CONTAMINANT PRESENT URINE SQUAMOUS EPITHELIAL CELLS WITH SEDIMENT, NO BACTERIA. Patient endorses right-sided flank pain, has been on ciprofloxacin for the last 10 days. No longer on this today. Lab work without leukocytosis, mildly elevated platelet count at 416, no electrolyte abnormalities, no elevation of liver enzymes CT KUB is negative for renal stone, hydronephrosis, no hydroureter with a normal-appearing bladder, no bowel obstruction or abnormal bowel wall thickening. No free fluid or free air, finding may represent uterine fibroids, suggestion of small right ovarian cyst as above. Bibasilar atelectasis, patient endorses congestion, runny nose, states that she is COVID vaccinated and recently vaccinated for influenza 2 weeks ago. COVID, influenza, and RSV panel is pending. Respiratory panel was n egative for influenza, RSV and COVID, gonorrhea and chlamydia were negative on PCR as well. Patient is appropriate and amenable to discharge home. Vital signs are stable on repeat examination is unremarkable. Patient has been informed of results. Patient has been given strict return to ER precautions for any new or worsening symptoms. Patient understands to follow up closely with outpatient providers as instructed. Patient understands plan and agrees to discharge home. All questions and concerns answered at this time. <Efe Caraballo DO - Last Filed: 03/28/22 07:14> Lab Data Labs: Lab Results 03/27/22 03/27/22 03/27/22 Range/Units 15:36 15:43 15:43 WBC 8.2 (4.5-11.0) X10^3/uL RBC 4.71 (4.0-5.2) X10^6/uL Hgb 14.4 (12.0-16.0) g/dL Hct 41.9 (36-46) % MCV 88.9 (80-100) fL MCH 30.6 (26-34) PG MCHC 34.5 (30-36) % RDW 13.2 (11.6-14.8) % Plt Count 416 H (150-400) X10^3/uL Neut % (Auto) 50.6 (50-75) % Lymph % (Auto) 27.6 (25-40) % Wirt % (Auto) 8.0 (3-14) % Eos % (Auto) 13.5 H (2-4) % Baso % (Auto) 0.3 (0-2) % Neut # (Auto) 4100 (9049-0239) /uL Lymph # (Auto) 2300 (7489-4965) /uL Wirt # (Auto) 700 (0-900) /uL Eos # (Auto) 1100 H (0-450) /uL Baso # (Auto) 0 (0-100) /uL Sodium 141 (137-145) mmol/L Potassium 3.6 (3.4-5.1) mmol/L Chloride 106 (98-107) mmol/L Carbon Dioxide 27 (22-32) mmol/L BUN 8 (7-17) mg/dL Creatinine 0.77 (0.52-1.04) mg/dL Estimated GFR > 60 (>60) mL/min BUN/Creatinine Ratio 10.4 (6-22) Glucose 100 (70-100) mg/dL Lactate (0.7-2.1) mmol/L Calcium 8.6 (8.4-10.2) mg/dL Total Bilirubin 0.7 (0.2-1.3) mg/dL AST 28 (14-36) IU/L ALT 18 (<35) IU/L Alkaline Phosphatase 110 (38-126) U/L Total Protein 7.9 (6.3-8.2) g/dL Albumin 4.3 (3.5-5.0) g/dL Globulin 3.6 (1.7-4.1) g/dL Albumin/Globulin Ratio 1.2 (1.0-2.8) Urine Color Yellow Urine Appearance Clear Urine pH 6.0 (4.5-8.0) Ur Specific Nicollet 1.020 (1.000-1.035) Urine Protein Negative (Negative) Urine Glucose (UA) Negative (Negative) g/dL Urine Ketones Negative (NEGATIVE) Urine Occult Blood Negative (Negative) Urine Nitrate Negative (Negative) Urine Bilirubin Negative (NEGATIVE) Urine Urobilinogen 1.0 (0.2) E.U./dL Ur Leukocyte Esterase Negative (NEGATIVE) Urine RBC 0-1/hpf (0-5/HPF) Urine WBC None seen (0-5/HPF) Ur Squamous Epith Cells 10-30 /hpf H (0-5/HPF) Amorphous Sediment Urine Bacteria None seen (None) Ur Culture Indicated? Cult not indicated Ur Chlamydia DNA (PCR) SARS-CoV-2 (PCR) (Negative) Influenza A (RT-PCR) (NEGATIVE) Influenza B (RT-PCR) (NEGATIVE) RSV (PCR) (Negative) N gonorrhoeae DNA (PCR) 03/27/22 03/27/22 03/27/22 Range/Units 15:43 15:46 17:18 WBC (4.5-11.0) X10^3/uL RBC (4.0-5.2) X10^6/uL Hgb (12.0-16.0) g/dL Hct (36-46) % MCV (80-100) fL MCH (26-34) PG MCHC (30-36) % RDW (11.6-14.8) % Plt Count (150-400) X10^3/uL Neut % (Auto) (50-75) % Lymph % (Auto) (25-40) % Wirt % (Auto) (3-14) % Eos % (Auto) (2-4) % Baso % (Auto) (0-2) % Neut # (Auto) (5450-4063) /uL Lymph # (Auto) (2406-5737) /uL Wirt # (Auto) (0-900) /uL Eos # (Auto) (0-450) /uL Baso # (Auto) (0-100) /uL Sodium (137-145) mmol/L Potassium (3.4-5.1) mmol/L Chloride (98-107) mmol/L Carbon Dioxide (22-32) mmol/L BUN (7-17) mg/dL Creatinine (0.52-1.04) mg/dL Estimated GFR (>60) mL/min BUN/Creatinine Ratio (6-22) Glucose (70-100) mg/dL Lactate 0.8 (0.7-2.1) mmol/L Calcium (8.4-10.2) mg/dL Total Bilirubin (0.2-1.3) mg/dL AST (14-36) IU/L ALT (<35) IU/L Alkaline Phosphatase (38-126) U/L Total Protein (6.3-8.2) g/dL Albumin (3.5-5.0) g/dL Globulin (1.7-4.1) g/dL Albumin/Globulin Ratio (1.0-2.8) Urine Color Yellow Urine Appearance Clear Urine pH 6.5 (4.5-8.0) Ur Specific Nicollet 1.020 (1.000-1.035) Urine Protein Negative (Negative) Urine Glucose (UA) Trace H (Negative) g/dL Urine Ketones Negative (NEGATIVE) Urine Occult Blood Negative (Negative) Urine Nitrate Negative (Negative) Urine Bilirubin Negative (NEGATIVE) Urine Urobilinogen 1.0 (0.2) E.U./dL Ur Leukocyte Esterase Negative (NEGATIVE) Urine RBC None seen (0-5/HPF) Urine WBC None seen (0-5/HPF) Ur Squamous Epith Cells 5-10 /hpf H (0-5/HPF) Amorphous Sediment 1+ Urine Bacteria None seen (None) Ur Culture Indicated? Cult not indicated Ur Chlamydia DNA (PCR) SARS-CoV-2 (PCR) Negative (Negative) Influenza A (RT-PCR) Flu a negative (NEGATIVE) Influenza B (RT-PCR) Flu b negative (NEGATIVE) RSV (PCR) Negative (Negative) N gonorrhoeae DNA (PCR) 03/27/22 Range/Units 17:54 WBC (4.5-11.0) X10^3/uL RBC (4.0-5.2) X10^6/uL Hgb (12.0-16.0) g/dL Hct (36-46) % MCV (80-100) fL MCH (26-34) PG MCHC (30-36) % RDW (11.6-14.8) % Plt Count (150-400) X10^3/uL Neut % (Auto) (50-75) % Lymph % (Auto) (25-40) % Wirt % (Auto) (3-14) % Eos % (Auto) (2-4) % Baso % (Auto) (0-2) % Neut # (Auto) (7485-1650) /uL Lymph # (Auto) (4329-9784) /uL Wirt # (Auto) (0-900) /uL Eos # (Auto) (0-450) /uL Baso # (Auto) (0-100) /uL Sodium (137-145) mmol/L Potassium (3.4-5.1) mmol/L Chloride (98-107) mmol/L Carbon Dioxide (22-32) mmol/L BUN (7-17) mg/dL Creatinine (0.52-1.04) mg/dL Estimated GFR (>60) mL/min BUN/Creatinine Ratio (6-22) Glucose (70-100) mg/dL Lactate (0.7-2.1) mmol/L Calcium (8.4-10.2) mg/dL Total Bilirubin (0.2-1.3) mg/dL AST (14-36) IU/L ALT (<35) IU/L Alkaline Phosphatase (38-126) U/L Total Protein (6.3-8.2) g/dL Albumin (3.5-5.0) g/dL Globulin (1.7-4.1) g/dL Albumin/Globulin Ratio (1.0-2.8) Urine Color Urine Appearance Urine pH (4.5-8.0) Ur Specific Nicollet (1.000-1.035) Urine Protein (Negative) Urine Glucose (UA) (Negative) g/dL Urine Ketones (NEGATIVE) Urine Occult Blood (Negative) Urine Nitrate (Negative) Urine Bilirubin (NEGATIVE) Urine Urobilinogen (0.2) E.U./dL Ur Leukocyte Esterase (NEGATIVE) Urine RBC (0-5/HPF) Urine WBC (0-5/HPF) Ur Squamous Epith Cells (0-5/HPF) Amorphous Sediment Urine Bacteria (None) Ur Culture Indicated? Ur Chlamydia DNA (PCR) Not detected SARS-CoV-2 (PCR) (Negative) Influenza A (RT-PCR) (NEGATIVE) Influenza B (RT-PCR) (NEGATIVE) RSV (PCR) (Negative) N gonorrhoeae DNA (PCR) Not detected Discharge Plan Departure Patient Disposition: Home Clinical Impression: Ovarian cyst Qualifiers: Laterality: right Qualified Code(s): N83.201 - Unspecified ovarian cyst, right side Instructions: DI for Ovarian Cyst Activity Restrictions/Additional Instructions: *You have been diagnosed with A resolved urinary tract infection. Please take ibuprofen 600 mg every 6-8 hours as needed, Tylenol in addition to this for pain not controlled by the ibup rofen. Please stay hydrated, drink plenty of clear fluids and ensure your emptying your bladder frequently. Please follow-up with your primary care provider regarding your urinary tract infection. Today your lab work overall is unremarkable, your CT of your abdomen does not show any abnormal findings, no kidney stones, no swelling of the ureters or inflammation of the bowel. You may have pain from uterine fibroids or a small right ovarian cyst. Please return for any new or worsening symptoms, hope you feel better soon. I assume that you have an upper respiratory viral infection, this could be symptoms from your vaccinations he received 2 weeks ago or a new upper respiratory viral illness. We will call you if your COVID, influenza, or RSV tests are positive. *What to do: *Please continue to take your regular medications as directed. [ ] New medication prescriptions sent to your pharmacy: [ ] [ ] New medication written as a paper prescription [x ] No new medications given *Please follow up with your primary care provider in 2-3 days, call for an appointment. Let them know you were seen in the Emergency Department and that we asked that you be seen for follow-up. We will electronically transmit a record of today's note if your PCP is in our system *If you do not have a primary care provider please contact [phone] to establish care with one of the [facility] primary care providers. *Return to Emergency Department if you should have any new, worsening, or concerning symptoms, such as [fever greater than 101F, chills, worsening pain, persistent vomiting or other bothersome symptoms]. Prescriptions: No Action levothyroxine 137 mcg capsule 137 mcg PO DAILY oxycodone 5 mg tablet 5 mg PO Q6H PRN (Reason: pain) Qty: 14 0RF Rx Instructions: Take as often as every 6 hours for pain after endometrial ablation. ibuprofen 400 mg tablet 1 tab PO Q6H PRN (Reason: Pain, Moderate) Label Comments: TAKE 1 TABLET BY MOUTH EVERY 6 HOURS NEEDED FOR MODERATE PAIN FOR UP TO 10 DAYS epinephrine [EpiPen 2-Ant] 0.3 MG/0.3 ML auto-injector 0.3 mg SQ X1 PRN (Reason: Allergic Reaction) ondansetron 4 mg tablet,disintegrating 4 mg PO Q8H PRN (Reason: nausea and vomiting) Qty: 14 0RF Referrals: Tessa De León MD [Primary Care Provider] - Visit Report Forms: Patient Portal/API <Efe Caraballo DO - Last Filed: 03/28/22 07:14> [facility] I was immediately available in the department for consultation. This documentation has been reviewed and I agree with assessment and plan. Supervised by Efe Caraballo DO
[2022-03-27 16:11] LABS: Appearance Urine UA CLEAR; Bilirubin Urine UA NEGATIVE (NEGATIVE); Color Urine UA YELLOW; Glucose Urine UA TRACE g/dL (Negative); Ketones Urine UA NEGATIVE (NEGATIVE); Leukocyte Esterase Urine UA NEGATIVE (NEGATIVE); Nitrite Urine UA NEGATIVE (Negative); Occult Blood Urine UA NEGATIVE (Negative); Protein Urine UA NEGATIVE (Negative)
[2022-03-27 16:13] LABS: pH Urine UA 6.5 (4.5-8.0)
[2022-03-27 16:14] LABS: Amorphous Sediment Urine 1+; Bacteria Urine None Seen; Culture Indicated Urine Cult Not Indicated; RBC Urine None Seen (0-5/HPF); Squamous Epithelial Cell Urine 5-10 /HPF (0-5/HPF); WBC Urine None Seen (0-5/HPF)
[2022-03-27 16:21] LABS: Add Manual Diff / Slide Review NO; Basophils Absolute Auto 0 /uL (0-100); Basophils Percent Auto 0.3 % (0-2); Eosinophils Absolute Auto 1100 /uL (0-450); Eosinophils Percent Auto 13.5 % (2-4); Hematocrit 41.9 % (36-46); Hemoglobin 14.4 g/dL (12.0-16.0); Lymphocytes Absolute Auto 2300 /uL (1100-4500); Lymphocytes Percent Auto 27.6 % (25-40); Mean Corpuscular HGB Conc 34.5 % (30-36); Mean Corpuscular Hemoglobin 30.6 PG (26-34); Mean Corpuscular Volume 88.9 fL (80-100); Monocytes Absolute Auto 700 /uL (0-900); Neutrophils Absolute Auto 4100 /uL (1500-7000); Neutrophils Percent Auto 50.6 % (50-75); Platelet Count 416 X10^3/uL (150-400); Red Blood Cell Count 4.71 X10^6/uL (4.0-5.2); Red Cell Distribution Width 13.2 % (11.6-14.8); White Blood Cell Count 8.2 X10^3/uL (4.5-11.0)
--- NOTE | 2022-03-27 16:22 | DI.CT.S_ITS ---
PROCEDURE: CT KIDNEY URETER BLADDER (KUB) INDICATIONS: pelvic pain, nephrolithiasis? TECHNIQUE: Axial sections were acquired from the lung bases to the pubic symphysis. Coronal and sagittal reformats were performed. For radiation dose reduction, the following was used: automated exposure control, adjustment of mA and/or kV according to patient size. COMPARISON: None. FINDINGS: Image quality: Excellent. Lung bases: Dependent atelectasis in posterior aspect of bilateral lung bases are seen.. Heart: No significant findings. URINARY: Right Kidney: No stones or hydronephrosis. Right Ureter: No hydroureter. Left Kidney: No stones or hydronephrosis. Left Ureter: No hydroureter. Bladder: Normal wall thickness. No stones. ABDOMEN: Liver: Unremarkable. Gallbladder: Gallbladder is not visualized which may indicate prior cholecystectomy. Biliary ducts: Unremarkable. Pancreas: Unremarkable. Spleen: Unremarkable. Adrenal Glands: Unremarkable. Stomach and Bowel: There is no bowel obstruction. No abnormal bowel wall thickening or mesenteric fat stranding. No abscess collection. Peritoneum: No abnormal intraperitoneal fluid. No free air. Ventral Wall: No hernia. Abdominal Nodes: No enlarged retroperitoneal or mesenteric lymph nodes. Vessels: Aorta and inferior vena cava are normal in size. PELVIS: Pelvic Organs: Bulky appearing uterus with heterogeneous myometrial density concerning for uterine fibroids. There is suggestion of a right ovarian cyst measures 1.9 x 1.8 cm in size. Pelvic Nodes: Unremarkable. Miscellaneous: No inguinal hernias are seen. Bones: No suspicious bony lesion. No acute vertebral body compression fracture. IMPRESSION: 1. No renal stones or hydronephrosis. No hydroureter. Normal appearing urinary bladder. 2. No bowel obstruction or abnormal bowel wall thickening. No free fluid or free air. 3. Finding may represent uterine fibroids. Suggestion of small right ovarian cyst as above. Dictated by: Cyrus Luna M.D. on 03/27/2022 at 16:45 Approved by: Cyrus Luna M.D. on 03/27/2022 at 16:48
[2022-03-27] MEDS: cefTRIAXone 1,000 MG in SODIUM CHLORIDE 0.9% 100 ML 200 MG IV (16:23)
[2022-03-27] MEDS: KETOROLAC 30 MG/ML VIAL 15 MG IV (16:23)
[2022-03-27 16:24] LABS: Lactate (Lactic Acid) 0.8 mmol/L (0.7-2.1)
[2022-03-27 16:25] LABS: Alanine Aminotransferase 18 IU/L (<35); Albumin 4.3 g/dL (3.5-5.0); Albumin Globulin Ratio 1.2 (1.0-2.8); Alkaline Phosphatase 110 U/L (38-126); Aspartate Aminotransferase 28 IU/L (14-36); BUN Creatinine Ratio 10.4 (6-22); Bilirubin Total 0.7 mg/dL (0.2-1.3); Blood Urea Nitrogen 8 mg/dL (7-17); Calcium 8.6 mg/dL (8.4-10.2); Carbon Dioxide 27 mmol/L (22-32); Chloride 106 mmol/L (98-107); Estimated Glomerular Filt Rate > 60 mL/min (>60); Globulin 3.6 g/dL (1.7-4.1); Glucose 100 mg/dL (70-100); HEMOLYSIS < 15 (0-50); Potassium 3.6 mmol/L (3.4-5.1); Sodium 141 mmol/L (137-145); Total Protein 7.9 g/dL (6.3-8.2)
[2022-03-27 16:39] LABS: Appearance Urine UA CLEAR; Bilirubin Urine UA NEGATIVE (NEGATIVE); Color Urine UA YELLOW; Glucose Urine UA NEGATIVE (Negative); Ketones Urine UA NEGATIVE (NEGATIVE); Leukocyte Esterase Urine UA NEGATIVE (NEGATIVE); Nitrite Urine UA NEGATIVE (Negative); Occult Blood Urine UA NEGATIVE (Negative); Protein Urine UA NEGATIVE (Negative)
[2022-03-27 16:49] LABS: RBC Urine 0-1/HPF (0-5/HPF)
[2022-03-27 16:50] LABS: Bacteria Urine None Seen; Culture Indicated Urine Cult Not Indicated; Squamous Epithelial Cell Urine 10-30 /HPF (0-5/HPF); WBC Urine None Seen (0-5/HPF)
[2022-03-27 17:45] LABS: Urine N gonorrhoeae NOT DETECTED
[2022-03-27 17:58] LABS: Urine Chlamydia NOT DETECTED
[2022-03-27 18:20] LABS: Influenza A - CEPHEID Flu A NEGATIVE (NEGATIVE); Influenza B - CEPHEID Flu B NEGATIVE (NEGATIVE); Respiratory Syncytial Virus Negative (Negative)
[2022-03-27 18:31] LABS: COVID-19 CEPHEID 4-PLEX PCR Negative (Negative)
== END 2022-03-27 18:06 | disposition home or self-care (01) ==
PROVIDERS: Emergency Provider Nurse Practitioner Critical Care Medicine; PCP Family Medicine
DX: N83.201 Unspecified ovarian cyst, right side (principal); Z20.822 Contact with and (suspected) exposure to COVID-19
CPT/HCPCS: 0241U; 36415; 74176; 80053; 81001; 83605; 85025; 87086; 87210; 87491; 87591; 96365; 96375; 99284; J0696; J1885

== ENCOUNTER → 2022-06-21 07:00 | Outpatient (CLI) | payer MEDICAID, OTHER, SELFPAY ==
--- NOTE | 2022-06-21 07:02 | DI.US.S_ITS ---
PROCEDURE: US PELVIC COMPLETE INDICATIONS: PAIN; FIBROIDS ON CT TECHNIQUE: Real-time scanning was performed of the pelvic organs, with image documentation. Additional endovaginal scanning was necessary due to incomplete visualization of the adnexal and endometrial structures by transabdominal scanning. COMPARISON: [facility], US, US PELVIC COMPLETE, 07/31/2021, 20:15. [facility], CT, CT KIDNEY URETER BLADDER (KUB), 03/27/2022, 16:29. FINDINGS: Uterus: Uterus is anteverted and upper limits of normal in size at 9.7 x 5.1 x 5.4 cm. The myometrium is homogeneous. The endometrium measures 17.1 mm combined thickness. There is a focus of decreased echogenicity within the endometrium measuring 1.0 x 0.6 x 0.7 cm. There is a mid anterior intramural focus of heterogeneous echogenicity within the uterus measuring 1.7 x 1.6 x 2.3 cm compared to 1.4 x 1.3 x 2.1 cm. Ovaries: The right ovary is not visualized. The left ovary measures 2.4 x 2.1 x 1.7 cm, with a calculated ovarian volume of 4.5 cc. The visualized ovaries and adnexal regions appear unremarkable. Other: No pathologic free abdominal or pelvic fluid. IMPRESSION: Cystic focus within the endometrium which is overall nonspecific. There is no associated increased vascularity. Etiology is considered on certain. Recommend 6 week ultrasound follow-up and correlate to test. Minimal interval increase in size of previously identified uterine fibroid. We strive to produce accurate, complete, and clear reports of imaging services. To assist us in improving patient care, this report was composed using standard report templates and voice recognition software. Therefore, it may contain abnormal punctuation, insertions and/or omissions. Occasional wrong-word or sound-alike substitutions may occur. Though we review the report and make efforts to correct it, we do recommend that the report be read carefully in proper context to recognize any text inaccuracies. Dictated by: Criselda Rubalcava M.D. on 06/21/2022 at 12:50 Approved by: Criselda Rubalcava M.D. on 06/21/2022 at 12:52
== END ==
PROVIDERS: PCP Family Medicine; Referring Provider Obstetrics & Gynecology; Visit Provider Obstetrics & Gynecology
DX: N94.6 Dysmenorrhea, unspecified (principal); R10.2 Pelvic and perineal pain; Z98.890 Other specified postprocedural states
CPT/HCPCS: 76830; 76856

== ENCOUNTER 2022-08-22 12:27 | Day surgery (SDC) | payer OTHER, MEDICAID, SELFPAY ==
[2022-08-15 08:15] VITALS: BMI 27.3
[2022-08-22] VITALS (9 sets, daily range): BP systolic 97–127; BP diastolic 51–78; PULSE 71–110; RESP 14–18; TEMP 36.5–37.3; O2SAT 93–99; BMI 27.3
--- NOTE | 2022-08-22 | PATH_ITS ---
[facility] Accession Number: [id number] No. of containers..01 Tissue . 01 Material submitted: . uterus - UTERUS WITH BILATERAL TUBES . 01 Diagnosis: Uterus with Bilateral Fallopian Tubes, Hysterectomy and Bilateral Salpingectomy: Adenomyosis. Benign leiomyoma. Cervix with no diagnostic abnormality. Bilateral fimbriated fallopian tubes with no diagnostic abnormality. No evidence of malignancy. [facility] 08/26/2022 1741 Local . 01 Electronically signed: . Aubrey Lambert MD, PhD, Pathologist NPI- [id number] . 01 Gross description: . The specimen is received in formalin labeled with the patient's name, , and uterus and bilateral tubes consists of an intact uterus (109 grams, 9.3 cm SI, 5.6 cm ML, and 4.5 cm AP) with attached cervix (3.2 x 2.5 cm), and two detached unoriented fimbriated fallopian tubes (5.1 x 0.7 cm and 3.9 x 1.2 cm, respectively). No additional adnexa identified. The ectocervix is pink-bates and glistening with a slit-like cervical os measuring 1.0 cm in diameter. The anterior paracervical margin is inked blue while the posterior paracervical margin is inked black. The serosa is bates and smooth with no evidence of adhesion or hemorrhage identified. The endocervical canal has bates herringbone mucosa and multiple thin smooth-walled cystic structures filled with cloudy gelatinous material measuring up to 1.1 cm in greatest dimension. The endocervical canal measures 2.9 cm in length. The endometrial cavity measures 1.7 cm from cornu to cornu and 3.4 cm in length with red velvety endometrium that averages 0.1 cm thick and is significant for multiple small pale bates striated areas extending from the mucosa measuring up to 1.0 cm in maximum length. Also identified near the fundus are several small hemorrhagic cavities measuring up to 0.3 cm in greatest dimension that grossly appear to extend into the cornua. The myometrium is pink-bates and trabecular measuring up to 2.2 cm in maximum thickness and significant for a single well-circumscribed pink whorled nodule measuring 2.1 cm in greatest dimension with no hemorrhage or necrosis identified. . The longer fallopian tube has bates smooth serosa with no cystic structures grossly identified, and sectioning reveals an unremarkable stellate lumen. The shorter fallopian tube has congested smooth serosa with a cystic structure near the fimbriated end measuring 0.4 cm in greatest dimension filled with cloudy serous fluid. Sectioning reveals an unremarkable stellate lumen. . [employer] sections are submitted as follows: A1: Anterior cervix. A2: Posterior cervix. A3: Anterior full-thickness section with striations and nodule. A4: Posterior full-thickness section with striations. A5-A6: Hemorrhagic cavities. A7: Serosa. A8: Longer fallopian tube to include one-half of bisected fimbriae and cross-sections. A9: [place] fallopian tube to include one-half of bisected fimbriae and cross-sections. ([id number]) /MRV 08/23/2022 1253 Local . 01 Pathologist provided ICD-10: N94.6, N99.85, N80.00 . 01 CPT . 818042 Specimen Comment: A courtesy copy of this report has been sent to [phone] Performed at: 01 [facility] [address] [place] [address], [place], [place] [id number] MD Vasyl Ortega MD Phone: [phone]
--- NOTE | 2022-08-22 13:06 | SUR.PREOP ---
Refusing test. Anesthesia and Dr. Savage to be made aware.
[2022-08-22] MEDS: LACTATED RINGERS 1,000 ML 42 ML IV ×2 (13:07→15:57)
--- NOTE | 2022-08-22 13:21 | PM.PREOP ---
Pre-operative Note COVID-19 COVID-19 status: Negative Result date/Date tested (Pos, Neg/Pending): 08/22/22 Criteria for continued procedure: Non-surgical alternatives not available or appropriate per current SOC Interval Note History & Physical reviewed/Exam performed by Physician: Yes Changes to H&P: No
[2022-08-22] MEDS: CEFAZOLIN 2 GM/100 ML PREMIX 100 ML IV (13:50)
--- NOTE | 2022-08-22 14:20 | SUR.OPER ---
Lithotomy on padded OR bed. Weldon Spring Pad Positioner under torso. Head on pillow, arms padded and tucked at sides. Legs secured in padded yellow fins stirrups.
[2022-08-22] MEDS: BUPIVACAINE 0.5% (PF) 10 ML VIAL 30 ML INJ (14:28)
[2022-08-22 15:37] LABS: COVID19 -Nasal RAPID Negative (Negative)
[2022-08-22] MEDS: ROPIVACAINE 0.2% PF 2 MG/ML 10ML AMP 20 ML INJ (15:41)
--- NOTE | 2022-08-22 16:45 | PM.GYNOP.1 ---
Operative Date/Time/Diagnoses Date of procedure: 08/22/22 Time of procedure: 13:50 Pre-op diagnosis: Post-endometrial ablation syndrome Uterine fibroids Stress urinary incontinence Post-op diagnosis: same Procedure & Clinicians Procedure: Procedures Operation Date: 08/22/22 13:30 Actual Procedure Side Surgeon p Laparoscopic Total Hysterectomy w. bilateral salpingectomy Uriel Savage MD s Mid urethral sling & cystoscopy Uriel Savage MD Indications: Imelda is a 41-year-old 8 para 5, LMP 08/06/2022 who presented with progressively severe midline pelvic pain with her menses following endometrial ablation and stress urinary incontinence. ? Patient experienced menarche at age 13 and had regular predictable periods throughout her reproductive years.? She is had 4 vaginal births and 1 section with her last delivery.? In addition she had a tubal sterilization procedure performed about 6 years ago.? Because of her heavy periods and severe dysmenorrhea, patient underwent endometrial ablation in October 2021 which has markedly lightened her periods.? She continues to have cyclic bleeding that is fairly light but she has 6 days of severe, incapacitating dysmenorrhea with little or no relief from use of Tylenol and/or ibuprofen.? She denies intermenstrual spotting or postcoital bleeding.? 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 Review of systems is positive for mixed incontinence with the urge component developing after performance of the hysteroscopy with endometrial ablation. We had an extended discussion about treatment options for her dysmenorrhea.? Use of a Mirena IUD is not feasible due to her prior ablation.? Use of Depo-Provera or Nexplanon is not something the patient wishes to pursue at this time because no assurance can be made that such treatment will definitively resolve her dysmenorrhea.? After extensive discussions, patient has decided to proceed with total laparoscopic hysterectomy with bilateral salpingectomy for treatment of her dysmenorrhea and post endometrial ablation syndrome.? In addition will perform mid urethral sling placement for her MARVIN.? She presents today for her scheduled surgery. Surgeon: Uriel Savage Laborer Driver: Vivian Arteaga Anesthesia Type: General Operative Notes Findings: The uterus is 8 weeks in size and myomatous, The tubes demonstrate changes consistent with prior laparoscopic tubal cautery. Both ovaries are normal in size and appearance. The is a sheet of adhesions involving the anterior abdominal peritoneum which was taken down during the course of the surgery. The appendix was not visible. The liver edges appear normal. Cystoscopy demonstrated diffuse small, rounded areas of erythema with central pallor. Vigorous jets of clear urine were see coming from each ureteral orifice. Closure Type: primary Specimen(s): left tube, right tube and uterus Applied: catheter Estimated blood loss (mL): 100 Procedure in detail: With the patient in modified dorsal lithotomy position preparations were made by prepping and draping the patient in usual manner for vaginal surgery and insertion of Faustin catheter.? A pre-surgical time-out was then taken in accordance with [facility] policy.? A Faustin catheter was inserted in the bladder.? A bivalve speculum was then placed in the vagina and the cervix visualized.? The anterior lip of the cervix was then grasped with a single-tooth tenaculum.? The uterus was sounded to 9 cm, the endocervical canal dilated slightly, and a [employer] uterine manipulator with a large colpotomy cup was placed.? The umbilicus was then infiltrated with 0.5% Marcaine with epinephrine.? A 2 cm umbilical incision was made transversely and the dissection carried down to the fascia which was incised transversely. Stay sutures of 0 vicryl were placed at each angle and the dissection was carried downward with the peritoneum entered under direct vision. A 12 mm Núñez cannula was then introduced through the incision into the abdominal cavity and the abdomen insufflated carbon dioxide.? The scope was placed through the trocar and the initial assessment of the intra-abdominal contents carried out.? A curtain of adhesions was then noted involving the anterior abdominal wall peritoneum to the right side of the midline and after a 5 mm trochar and sleeve were placed in the left mid-quadrant, the Power Seal device was used to coagulate and divide the sheet of adhesions from it's attachment to the anterior wall peritoneum. Once the adhesions were taken down a 2nd 5 mm trocar and sleeve were introduced in the right mid quadrant. Using a 3 puncture technique, the abdomen and pelvis were inspected laparoscopy with the findings noted above.? Uterus is mobilized with the VCare manipulator and attention turned to the left adnexa.? The distal tube was then grasped and the fimbria ovarica divided after coagulation with the PowerSeal device.? The dissection was then carried out toward the cornua and the fallopian tube amputated.? The tube was removed through a 5 mm port and dissection was then carried down using the PowerSeal device so as to divide the utero-ovarian ligament and the round ligament with blunt and sharp dissection of the broad down to the level of the uterine artery.? The uterine artery was then skeletonized after development of a bladder flap, coagulated, and divided.? Once hemostasis was assured on the left side attention was turned to the right and the tube, utero-ovarian ligament, round ligament, and broad ligament were dissected in a fashion exactly the same as it had been on the left.? The right uterine artery was then visualized after skeletonization and coagulated and divided.? The uterus was seen to epifanio after coagulation of both your arteries and the cup was identified through the vaginal muscularis at its insertion with the body of the cervix.? Circumferential excision of the vaginal cup was accomplished without difficulty using monopolar current and the uterus mobilized.? The uterus was then removed through the vagina and the vaginal cuff closed [id number] with a series of 0 Vicryl [id number] stitches.? Hemostasis was excellent, the abdomen was re-insufflated, and the pelvis inspected laparoscopically.? The pelvis was inspected again for any abnormality or bleeding, and the ureters were each seen to be peristalsing freely.? 20 cc of ropivacaine was instilled into the pelvis. With complete hemostasis assured, the pneumoperitoneum was vented and the ports removed.? All of the 5 mm ports incisions were then closed with 4-0 Monocryl on the skin using inverted interrupted sutures.? Skin glue was placed and after the glue was dried, an appropriate dressing was applied.? Attention was then turned to performance of the mid urethral sling placement.? The patient was repositioned and a weighted speculum was placed in the vagina.? The mid urethra was identified by palpation of the Faustin bulb and the vaginal mucosa underlying the mid urethra was infiltrated with 0.5% Marcaine with epinephrine.? A 2 cm longitudinal incision of the vaginal mucosa was then made with the scalpel and dissection laterally on both sides was carried out with Metzenbaum scissors.? The retropubic tension-free vaginal tape was then introduced 1st on the right side and then the left and both were brought out through the skin of the mons on either side of the midline.? The TVT was then from the trochars used for introduction and appropriately tension.? Plastic sleeve was then removed, redundant portion of TVT excised, and final positioning determined to be correct.? The vaginal mucosa was then closed with 3-0 vicryl in a running interlocking stitch.? Retropubic pressure was held for proximally 5 minutes both digitally and with sponge sticks.? Minimal bleeding was noted.? The weighted speculum was then removed from the vagina, the case was then terminated, the patient awakened, and then transferred to PACU after having tolerated the procedure well. Complications: none Post-operative Condition: stable Disposition: PACU Plan for aftercare: Routine post-op care
[2022-08-22] MEDS: HYDROMORPHONE 2 MG INJ IV (16:58)
[2022-08-22] MEDS: ONDANSETRON 4 MG/2 ML INJ IV (17:00)
[2022-08-22] MEDS: OXYCODONE/ACETAMINOPHEN 5/325 TABLET 1 TAB PO (17:11)
[2022-08-22] MEDS: LACTATED RINGERS 1,000 ML 100 ML IV (17:46)
[2022-08-22] MEDS: OXYCODONE IR 5 MG TABLET PO (20:30)
[2022-08-22] MEDS: ONDANSETRON 4 MG/2 ML INJ 8 MG IV (20:30)
[2022-08-22] MEDS: DOCUSATE 100 MG CAPSULE 200 MG PO (20:31)
[2022-08-23] VITALS: BP 93/52; PULSE 82; RESP 14; TEMP 37.4; O2SAT 95
[2022-08-23 04:00] VITALS: BP 94/51; PULSE 67; RESP 14; TEMP 37; O2SAT 94
[2022-08-23 04:57] LABS: Add Manual Diff / Slide Review NO; Basophils Absolute Auto 100 /uL (0-100); Basophils Percent Auto 0.4 % (0-2); Eosinophils Absolute Auto 0 /uL (0-450); Hematocrit 34.3 % (36-46); Lymphocytes Absolute Auto 1100 /uL (1100-4500); Lymphocytes Percent Auto 8.1 % (25-40); Mean Corpuscular HGB Conc 34.9 % (30-36); Mean Corpuscular Hemoglobin 31.3 PG (26-34); Mean Corpuscular Volume 89.5 fL (80-100); Monocytes Absolute Auto 600 /uL (0-900); Monocytes Percent Auto 4.7 % (3-14); Neutrophils Absolute Auto 11300 /uL (1500-7000); Neutrophils Percent Auto 86.8 % (50-75); Platelet Count 300 X10^3/uL (150-400); Red Blood Cell Count 3.84 X10^6/uL (4.0-5.2); Red Cell Distribution Width 12.7 % (11.6-14.8); White Blood Cell Count 13.1 X10^3/uL (4.5-11.0)
[2022-08-23] MEDS: MORPHINE 4 MG/ML INJ IV (05:04)
[2022-08-23] MEDS: ONDANSETRON 4 MG/2 ML INJ 8 MG IV (05:05)
[2022-08-23] MEDS: LIOTHYRONINE 5 MCG TABLET PO (05:53)
[2022-08-23] MEDS: LEVOTHYROXINE 112 MCG TABLET PO (05:53)
[2022-08-23 08:04] VITALS: BP 102/60; PULSE 68; RESP 18; TEMP 37.1; O2SAT 97
[2022-08-23] MEDS: DOCUSATE 100 MG CAPSULE 200 MG PO (08:59)
--- NOTE | 2022-08-23 09:15 | PM.DS.1 ---
History of Present Illness History of Present Illness Date Patient Seen: 08/23/22 Time Patient Seen: 09:15 Chief complaint: Post-endometrial ablation syndrome, MARVIN Discharge Providers Provider Date of admission: 08/22/2022 Discharge Date: 08/23/22 Primary care physician: Tessa De León MD Discharge provider: Uriel Savage MD Summary Hospital Course Discharge Diagnosis: Post endometrial ablation syndrome Stress urinary incontinence Status post total laparoscopic hysterectomy with bilateral salpingectomy and mid urethral sling placement Hospital Course: Imelda was admitted on 08/22/2022 underwent an uneventful total laparoscopic hysterectomy with bilateral salpingectomy and placement of a mid urethral sling. Full details of the procedure well documented on my operative note of that date. Following her surgery the patient has done exceptionally well with prompt return of bowel and bladder function, she is ambulating independently, tolerating regular diet, and her pain is well controlled with oral pain medication. She will be discharged at this time in an afebrile normotensive condition to home after counseling regarding precautionary symptoms, limitations of activity, medications, and plans for follow-up which will be in 2 weeks. Medications discharge will include resumption of all preadmission medications and ibuprofen 600 mg p.o. q.6 hours as needed pain. Status at Discharge Cognitive/behavioral status at discharge: oriented Functional status at discharge: independent ambulation Overall status at discharge: patient is progressing back to baseline Time Spent with Patient Time spent: Greater than 30 minutes Exam Vital Signs (past 8 hours): - 08/23/22 04:00 08/23/22 08:04 Temperature 98.6 F 98.8 F Pulse Rate 67 68 Respiratory Rate 14 18 Blood Pressure 94/51 L 102/60 Pulse Oximetry 94 97 Oxygen Flow Rate 0 Oxygen Delivery Method Room Air Oxygen Flow Rate 0 Const General: cooperative and comfortable Nutritional Appearance: average body habitus Orientation: alert and oriented x3 HENMT Head: normal to inspection, atraumatic and abrasion Ears: hearing grossly normal bilaterally Face and sinus: face symmetric Eyes General: appearance normal, both eyes and all related structures Conjunctivae: conjunctivae normal Sclera: sclerae normal EOM: EOM intact bilaterally Neck Neck: normal visual inspection Resp Effort & Inspection: normal respiratory effort and able to speak in complete sentences Auscultation: clear to auscultation bilaterally Cardio Rate: regular rate Rhythm: regular rhythm Heart Sounds: S1 normal, S2 normal and no murmurs GI Inspection: normal to inspection and incision (Laparoscopy port dressings clean/dry, light staining suprapubic dressing) Palpation: soft, no hepatosplenomegaly and tender (Mild, diffuse postsurgical tenderness) External Female Exam: other (No significant bleeding noted) Extrem General: no calf tenderness Psych Appearance: grossly normal Mental Status: mental status grossly normal Speech and Movement: speech and movement normal Mood: congruent mood Affect: normal affect Attitude: cooperative Thought Process: normal Thought Content: normal Judgment: judgment good Objective Labs 08/23/22 04:47 Labs: Laboratory Results - last 24 hr 08/22/22 08/23/22 12:45 04:47 WBC 13.1 H RBC 3.84 L Hgb 12.0 Hct 34.3 L MCV 89.5 MCH 31.3 MCHC 34.9 RDW 12.7 Plt Count 300 Neut % (Auto) 86.8 H Lymph % (Auto) 8.1 L [place] % (Auto) 4.7 Eos % (Auto) 0.0 L Baso % (Auto) 0.4 Neut # (Auto) 54134 H Lymph # (Auto) 1100 [place] # (Auto) 600 Eos # (Auto) 0 Baso # (Auto) 100 SARS-CoV-2 (PCR) Negative [facility] Medical History (Updated 10/03/22 @ 11:03 by Uriel Savage MD) Acute bronchitis Anxiety ASCUS with positive high risk HPV Chest wall pain Family history of diabetes mellitus Fatigue Graves' disease Hypothyroidism Postoperative abdominal pain Pyelonephritis Respiratory failure Sinus drainage Upper respiratory infection Uterine fibroid (~2020) UTI (urinary tract infection) during Viral illness Vomiting and diarrhea Surgical History (Updated 08/15/22 @ 08:30 by Rabia Lee RN) Anesthesia History of cholecystectomy History of dilatation and curettage History of hysteroscopy (10/26/21) Status post delivery (02/02/13) Status post knee surgery Status post tubal ligation (06/17/16) Family History Father Diabetes mellitus History of heart disease Hypertension Grandmother Cancer Diabetes mellitus History of heart disease Social History household members: spouse Smoking Status: Former smoker alcohol intake: never Discharge Assessment & Plan Assessment and Plan Assessment: Post endometrial ablation syndrome Stress urinary incontinence Status post total laparoscopic hysterectomy with bilateral salpingectomy and mid urethral sling placement with cystoscopy Plan of Treatment: Follow-up will be in 2 weeks or as needed Discharge Plan Discharge Plan Patient Disposition: Home Provider Discharge Comment: Please review the written instructions you received when you were discharged from the hospital. Your follow-up appointment will be 2 weeks after your surgery and I look forward to seeing you then. If however in the meanwhile you have any problems, issues, or questions, please contact me either through the office phone at [phone], or via the patient portal. Discharge orders & Medications Discharge Orders: Discharge (Order); Ordered 08/23/22 Ordered By: Uriel Savage Prescriptions: Continued levothyroxine 137 mcg capsule 120 mcg PO DAILY liothyronine 5 mcg tablet 5 mcg PO DAILY ibuprofen 400 mg tablet 1 tab PO Q6H PRN (Reason: Pain, Moderate) Patient Comments: TAKE 1 TABLET BY MOUTH EVERY 6 HOURS NEEDED FOR MODERATE PAIN FOR UP TO 10 DAYS epinephrine [EpiPen 2-Ant] 0.3 MG/0.3 ML auto-injector 0.3 mg SQ X1 PRN (Reason: Allergic Reaction) Follow up/Referrals: Tessa De León MD [Primary Care Provider] - Uriel Savage MD [Physician] - Diet/Activity/Treatments Diet: Diet as Tolerated Activity: As tolerated Other treatments: [id number]-[id number] Tylenol and/or ibuprofen may be used for additional pain relief. Tbgy-bmn-medujna stool softeners and/or MiraLax may be used as needed for constipation. Skin/Wound/Dressing Care Report to your healthcare provider any signs of infection, such as:: chills, fever, increased pain, unusual drainage and unusual redness Dressing: Dressings may be removed on 08/24/2022. Visit Report/Discharge Packet Instructions: DI for Hysterectomy, DI for Laparoscopy, DI for Prescription Opioid Use Stand Alone Forms: Patient Portal/API, Surgery Discharge Print Language: Citizen Of [place] Discharge Data Primary Care Provider: Tessa De León Attending Provider: Uriel Savage
--- NOTE | 2022-08-23 12:21 | CM.DANOTE ---
Patient is a 42 yo female who was admitted on 08/22/22 for Lap Total Hysterectomy. Pt has [facility] and [facility] for insurance and her PCP is Tessa De León. EMR was reviewed. Per OVERSEAMER, pt tolerated procedure well but having some nausea and low bp and needs to urinate independently. OBGYN will round again this afternoon to determine if pt stable for d/c. Per Rn, pt hasn't been feeling well and may be able to d/c this afternoon vs tomorrow. SW met bedside with pt and explained role and pt clearly not feeling well but states she feels better than in the middle of the night. Pt quite short and brief in her answers, likely to feeling unwell but confirms she is independent at baseline and has children at home and supports at home who can assist and friend plans to provide transport home at d/c. Pt does not anticipate any needs and is hopeful to feel better for d/c home later today. Plan: SW to follow for likely plan of d/c home via friend POV when medically stable either later today vs tomorrow pending progress. SW to follow for any further identified discharge planning needs. CRISPIN Bella Discharge Planning/Care Management CM Discharge Assessment Start: 08/23/22 12:20 Freq: Status: Active Protocol: Document 08/23/22 12:20 BF (Rec: 08/23/22 12:21 BF [id number]) Discharge Planning Assessment Assigned Retail Support Manager CRISPIN Moran DPOA/Assigned Designee Name none Advance Directives? No History Provided By Patient,Friend,Medical Record Has Patient been admitted in last 30 No days? Prior Living Arrangements House Household Members spouse Type of transporation used prior to Drives own vehicle admit Independent with ADL's Yes Is patient alert and oriented? Yes Caregiver for Another Yes: children at home Barriers to Discharge No Discharge Plan Home Transportation Arrangement friend to transport home Referrals Initiated None needed Whiteboard Updated in Patient Room with Yes name and ext. # of Retail Support Manager Review Status In Process Please Provide Date Initial DC 08/23/22 Assessment Was Performed Next Review Type Continued Stay Review Pre-Anesthesia Assessment Start: 08/15/22 08:14 Freq: Status: Active Protocol: Document 08/15/22 08:15 CAB (Rec: 08/15/22 08:45 CAB [id number]) Pre-Anesthesia Assessment Patient Information Reviewed Via Chart Review Primary Care Provider dominique Seen Specialist in Last 12 Months Yes Specialist Seen Emergency,Labor And Delivery Nurse Primary Language Macedonian Director Of Business Systems Required No Height 160.02 cm Weight 69.853 kg Body Mass Index (BMI) 27.3 Barriers to Learning None Hx Anesthesia Reactions No Hx Family Anesthesia Reaction No Hx Malignant Hyperthermia No Hx Blood Transfusion Reaction No Anesthesia Review Requested No 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 No Hx Sleep Apnea No Currently Taking a Beta [place] No Hx Chest Pain Yes Anti-Coagulant Therapy No Cardiac Testing No Hx Pacemaker/ICD No Pacemaker Rep Required? No Urinary Catheter Present No Hx Urinary Self Catheterization No Diabetes No Patient No Lactating No Presence of External or Internal Medical No Devices Received a COVID vaccine? Yes Marital Status Lives With spouse Patient Discharge Plan Description Return Home Advance Directives? No
[2022-08-23 13:25] VITALS: BP 124/71; PULSE 60; RESP 17; TEMP 36.6; O2SAT 98
[2022-08-23] MEDS: IBUPROFEN 600 MG TABLET PO (14:41)
[2022-08-23] MEDS: OXYCODONE IR 5 MG TABLET PO (14:41)
--- NOTE | 2022-08-23 17:53 | PC.NURSE ---
Day shift: Paperwork signed and all questions answered. One of the dressings changed by Dr Savage prior to d/c. Dressings are all CDI. Pt has all perosnal belongings. scripts sent electronic to Pt's pharmacy. Left unit at approx 1750 via WC. Vo to car by [facility]. Pt's Son is driving Pt home.
== END 2022-08-23 18:08 | disposition home or self-care (01) ==
LOC: OR 12:29 → AC 12:29
PROVIDERS: PCP Family Medicine; Referring Provider Obstetrics & Gynecology; Visit Provider Obstetrics & Gynecology
PROC: 0UT94ZZ Resection of Uterus, Percutaneous Endoscopic Approach (ICD-10-PCS; CPT 58571; principal; 2022-08-22 13:30)
PROC: 0TSD0ZZ Reposition Urethra, Open Approach (ICD-10-PCS; CPT 58571; 2022-08-22 13:30)
DX: N99.85 Post endometrial ablation syndrome (principal); D25.9 Leiomyoma of uterus, unspecified; N39.3 Stress incontinence (female) (male); Z20.822 Contact with and (suspected) exposure to COVID-19; N80.03 Adenomyosis of the uterus
CPT/HCPCS: 58571; 57288; 36415; 81025; 85025; 87635; C9803; C1771; J0690; J1100; J1170; J1885; J2250; J2270; J2405; J2704; J2795; J3010

== ENCOUNTER → 2022-11-28 09:37 | Outpatient (CLI) | payer MEDICAID, OTHER, SELFPAY ==
[2022-08-22 17:47] VITALS: BMI 27.3
--- NOTE | 2022-11-28 | DI.RAD.S_ITS ---
PROCEDURE: XR LUMBAR SPINE 2-3V INDICATIONS: Other chronic pain TECHNIQUE: 3 views of the lumbar spine were acquired. COMPARISON: [facility], , L-SPINE 2-3 VIEWS, 05/14/2012, 15:21. FINDINGS: Bones: 5 [id number] vertebrae are present. There is normal bony alignment. No vertebral body compression fractures. No suspicious bony lesions. Trace interval L5-S1 disc and foraminal narrowing. Soft tissues: Overlying bowel gas pattern is normal. No suspicious soft tissue calcifications. IMPRESSION: No acute osseous abnormality. Trace interval L5-S1 disc and foraminal narrowing. Dictated by: Criselda Rubalcava M.D. on 11/28/2022 at 14:13 Approved by: Criselda Rubalcava M.D. on 11/28/2022 at 14:16
== END ==
PROVIDERS: PCP Family Medicine; Referring Provider Family Medicine; Visit Provider Family Medicine
DX: G89.29 Other chronic pain (principal)
CPT/HCPCS: 72100

== ENCOUNTER 2023-07-29 11:53 | Emergency (ER) | payer OTHER, MEDICAID, SELFPAY ==
[2022-08-22 17:47] VITALS: BMI 27.3
[2023-07-29] VITALS (7 sets, daily range): BP systolic 113–132; BP diastolic 59–78; PULSE 77–90; RESP 14–18; TEMP 37.1–37.2; O2SAT 94–100; BMI 27.4
--- NOTE | 2023-07-29 12:24 | DI.RAD.S_ITS ---
PROCEDURE: XR CHEST 1V INDICATIONS: shortness of breath/cough TECHNIQUE: One view of the chest was acquired. COMPARISON: [facility], CR, XR CHEST 1V, 12/13/2021, 12:46. FINDINGS: Surgical changes and devices: None. Lungs and pleura: Lungs are clear. No pleural effusions or pneumothorax. Mediastinum: Mediastinal contours appear normal. Heart size is normal. Bones and chest wall: No suspicious bony lesions. Overlying soft tissues appear unremarkable. IMPRESSION: No acute cardiopulmonary abnormality is seen. Dictated by: Effie Fournier MD, PhD on 07/29/2023 at 13:18 Approved by: Effie Fournier MD, PhD on 07/29/2023 at 13:18
[2023-07-29 13:19] LABS: Influenza A - CEPHEID Flu A NEGATIVE (NEGATIVE); Influenza B - CEPHEID Flu B NEGATIVE (NEGATIVE); Respiratory Syncytial Virus Negative (Negative)
[2023-07-29 13:21] LABS: COVID-19 CEPHEID 4-PLEX PCR POSITIVE (Negative)
--- NOTE | 2023-07-29 16:55 | PC.NURSE ---
went in to take a repeat set of vitals; pt is refusing vital signs RN aware
== END 2023-07-29 17:12 | disposition left against medical advice (07) ==
PROVIDERS: Emergency Provider Emergency Medicine; PCP Family Medicine
DX: R06.02 Shortness of breath (principal); R05.9 Cough, unspecified; Z20.822 Contact with and (suspected) exposure to COVID-19
CPT/HCPCS: 0241U; 71045; 99281

== ENCOUNTER → 2024-08-09 13:40 | Outpatient (CLI) | payer MEDICAID, SELFPAY ==
[2022-08-22 17:47] VITALS: BMI 27.3
--- NOTE | 2024-08-09 13:43 | DI.RAD.S_ITS ---
PROCEDURE: XR KNEE STANDING BI INDICATIONS: Pain in left foot TECHNIQUE: AP view of both knees was acquired COMPARISON: None. FINDINGS: Bones: There are no osseous abnormalities. Joints: The tibialfemoral joints are normal in width and alignment without arthritic change. . There are no effusions. Soft tissues: Normal IMPRESSION: Normal limited bilateral knees Dictated by: Kristopher Knutson M.D. on 08/10/2024 at 11:36 Approved by: Kristopher Knutson M.D. on 08/10/2024 at 11:37
--- NOTE | 2024-08-09 13:43 | DI.RAD.S_ITS ---
PROCEDURE: XR FOOT LT MIN 3V INDICATIONS: Pain in left foot TECHNIQUE: 3 views of the foot were acquired. COMPARISON: None. FINDINGS: Bones: Nondisplaced old ununited fracture of the lateral malleolar tip appreciated. No osseous abnormality seen within the foot proper. Joints: Mild degenerative change present the 2nd through 5th interphalangeal joints. Soft tissues: Mild diffuse soft swelling noted IMPRESSION: Mild diffuse soft swelling which could indicate edema or cellulitis Other chronic findings as described Dictated by: Kristopher Knutson M.D. on 08/10/2024 at 11:34 Approved by: Kristopher Knutson M.D. on 08/10/2024 at 11:36
== END ==
PROVIDERS: PCP Family Medicine; Referring Provider Family Medicine; Visit Provider Family Medicine
DX: S82.65XA Nondisplaced fracture of lateral malleolus of left fibula, initial encounter for closed fracture (principal); M79.89 Other specified soft tissue disorders; M79.672 Pain in left foot
CPT/HCPCS: 73565; 73630